=== PATIENT | female | born 1950 | race Caucasian/White ===

== ENCOUNTER → 2021-07-26 10:54 | Outpatient (BNVA) | payer MEDICARE, OTHER, SELFPAY | PROVIDERS: PCP Internal Medicine; Visit Provider Internal Medicine Rheumatology | DX: L40.9 Psoriasis, unspecified (principal); L40.50 Arthropathic psoriasis, unspecified; M17.0 Bilateral primary osteoarthritis of knee; M85.80 Other specified disorders of bone density and structure, unspecified site; Z79.899 Other long term (current) drug therapy | CPT/HCPCS: 99212 ==

== ENCOUNTER 2021-11-07 10:55 | Outpatient (REF) | payer MEDICARE, OTHER, SELFPAY ==
[2021-11-07 14:31] LABS: C Reactive Protein 0.46 mg/dL (< or = 0.50)
[2021-11-07 15:07] LABS: Erythrocyte Sedimentation Rate 11 MM/HR (0-20)
[2021-11-12 16:21] LABS: Vitamin D 25-OH, D2 <4 ng/mL; Vitamin D 25-OH, D3 47 ng/mL; Vitamin D 25-OH, Total 47 ng/mL (30-100)
== END 2021-11-07 10:56 | disposition home or self-care (01) ==
LOC: HO.10HDL 10:55
PROVIDERS: Visit Provider Internal Medicine Rheumatology
DX: M17.0 Bilateral primary osteoarthritis of knee (principal); M85.80 Other specified disorders of bone density and structure, unspecified site; L40.50 Arthropathic psoriasis, unspecified; L40.9 Psoriasis, unspecified; Z79.899 Other long term (current) drug therapy
CPT/HCPCS: 36415; 82306; 85652; 86140; 99212

== ENCOUNTER → 2022-03-13 10:31 | Outpatient (BNVA) | payer MEDICARE, OTHER, SELFPAY | PROVIDERS: PCP Internal Medicine; Visit Provider Internal Medicine Rheumatology | DX: L40.50 Arthropathic psoriasis, unspecified (principal); M17.0 Bilateral primary osteoarthritis of knee; M85.80 Other specified disorders of bone density and structure, unspecified site; Z79.899 Other long term (current) drug therapy; Z96.641 Presence of right artificial hip joint | CPT/HCPCS: 36415; 82306; 85025; 85652; 86140; 99212 ==

== ENCOUNTER 2022-03-13 12:39 | Outpatient (REF) | payer MEDICARE, OTHER, SELFPAY ==
[2022-03-13 13:42] LABS: MANUAL DIFF FLAG NO
[2022-03-13 13:59] LABS: Basophils Absolute Auto 0.1 X10*3/uL (0.0-0.2); Basophils Percent Auto 0.6 % (0-2); Eosinophils Absolute Auto 0.1 X10*3/uL (0.0-0.4); Eosinophils Percent Auto 1.5 % (0-4); Hematocrit 40.4 % (37.0-47.0); Hemoglobin 12.9 g/dl (12.0-16.0); Imm Gran Abs Auto 0.03 X10*3/uL (0.00-0.03); Imm Gran Pct Auto 0.4 % (0.0-0.4); Lymphocytes Absolute Auto 3.1 X10*3/uL (1.2-4.9); Lymphocytes Percent Auto 37.7 % (20-40); Mean Corpuscular HGB Conc 31.9 g/dl (31.0-35.0); Mean Corpuscular Hemoglobin 30.7 pg (27.0-33.0); Mean Corpuscular Volume 96.2 fL (80.0-98.0); Mean Platelet Volume 9.6 fL (9.4-12.3); Monocytes Absolute Auto 0.4 X10*3/uL (0.1-1.2); Monocytes Percent Auto 4.6 % (2-11); Neutrophils Absolute Auto 4.5 x10*3/uL (2.0-8.3); Neutrophils Percent Auto 55.2 % (45-73); Platelet Count 330 X10*3/uL (160-400); Red Cell Distribution Width 11.8 % (11.0-16.0); White Blood Count 8.2 X10*3/uL (4.8-10.8)
[2022-03-13 14:29] LABS: C Reactive Protein 0.23 mg/dL (< or = 0.50)
[2022-03-13 14:37] LABS: Erythrocyte Sedimentation Rate 12 MM/HR (0-20)
[2022-03-19 15:38] LABS: Vitamin D 25-OH, D2 <4 ng/mL; Vitamin D 25-OH, D3 49 ng/mL; Vitamin D 25-OH, Total 49 ng/mL (30-100)
== END 2022-03-13 12:40 | disposition home or self-care (01) ==
LOC: HO.10HDL 12:39
PROVIDERS: Visit Provider Internal Medicine Rheumatology
DX: Z13.89 Encounter for screening for other disorder (principal)
CPT/HCPCS: 36415; 82306; 85025; 85652; 86140

== ENCOUNTER → 2022-07-18 11:06 | Outpatient (BNVA) | payer MEDICARE, OTHER, SELFPAY | PROVIDERS: PCP Internal Medicine; Visit Provider Internal Medicine Rheumatology | DX: L40.50 Arthropathic psoriasis, unspecified (principal); L40.9 Psoriasis, unspecified; M17.0 Bilateral primary osteoarthritis of knee; Z79.899 Other long term (current) drug therapy | CPT/HCPCS: 36415; 85025; 85652; 86140; 99212 ==

== ENCOUNTER 2022-07-18 12:33 | Outpatient (REF) | payer MEDICARE, OTHER, SELFPAY ==
[2022-07-18 13:31] LABS: MANUAL DIFF FLAG NO
[2022-07-18 13:38] LABS: Basophils Absolute Auto 0.1 X10*3/uL (0.0-0.2); Basophils Percent Auto 0.7 % (0-2); Eosinophils Absolute Auto 0.1 X10*3/uL (0.0-0.4); Hematocrit 38.5 % (37.0-47.0); Hemoglobin 12.5 g/dl (12.0-16.0); Imm Gran Abs Auto 0.01 X10*3/uL (0.00-0.03); Imm Gran Pct Auto 0.1 % (0.0-0.4); Lymphocytes Absolute Auto 3.2 X10*3/uL (1.2-4.9); Mean Corpuscular HGB Conc 32.5 g/dl (31.0-35.0); Mean Corpuscular Hemoglobin 30.5 pg (27.0-33.0); Mean Corpuscular Volume 93.9 fL (80.0-98.0); Mean Platelet Volume 10.4 fL (9.4-12.3); Monocytes Absolute Auto 0.4 X10*3/uL (0.1-1.2); Monocytes Percent Auto 5.6 % (2-11); Neutrophils Absolute Auto 3.9 x10*3/uL (2.0-8.3); Neutrophils Percent Auto 50.6 % (45-73); Platelet Count 262 X10*3/uL (160-400); Red Cell Distribution Width 12.1 % (11.0-16.0); White Blood Count 7.6 X10*3/uL (4.8-10.8)
[2022-07-18 15:12] LABS: C Reactive Protein < 0.10 mg/dL (< or = 0.50)
[2022-07-18 15:28] LABS: Erythrocyte Sedimentation Rate 9 MM/HR (0-20)
== END 2022-07-18 12:34 | disposition home or self-care (01) ==
LOC: HO.10HDL 12:33
PROVIDERS: Visit Provider Internal Medicine Rheumatology
DX: Z13.89 Encounter for screening for other disorder (principal)
CPT/HCPCS: 36415; 85025; 85652; 86140

== ENCOUNTER 2022-10-28 10:32 | Outpatient (AMB) | payer MEDICARE, OTHER, SELFPAY ==
--- NOTE | 2022-10-28 10:34 | A.OFFVIS_ITS ---
Intake Vital Signs 10/28/22 10:36 Height 5 ft 4 in Weight 133 lb 2.547 oz BMI 22.9 BP 112/70 Blood Pressure Location Rt brachial Position Sitting Pulse 80 Pulse Source Pulse Oximeter Temp 97.4 F Temp Source Skin Pulse Oximetry (%) 98 Oxygen Delivery Method Room Air Intake Visit Reasons: PSA Intake Note: Here for PSA follow up. C/O- arthritic pain, Tylenol stopped due to fatty liver. Would like to resume taking Tylenol. Patient fell in September during vacation. Injured left shoulder. Did not get evaluated s/p fall. 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 Accompanied by: Self / Same As Patient Allergies prochlorperazine [From Compazine] Allergy (Severe, Verified 10/28/22 10:35) muscle spasms Medication List - Last Reconciled 10/28/22 by New Kincaid MD acetaminophen (Tylenol Extra Strength) 1,000 mg PO TID adalimumab (Humira(CF) Pen) 40 mg (0.4 mL) subcut Q2W 56 days albuterol sulfate 90 mcg/actuation (ProAir HFA) 2 puffs inhalation Q6H PRN azelastine 2 sprays intranasal BID cholecalciferol (vitamin D3) 50 mcg PO DAILY diclofenac sodium 1% (Voltaren Arthritis Pain) 2 grams topical QID PRN erythromycin 0 mg ophthalmic (eye) levothyroxine 75 mcg PO DAILY ondansetron 4 mg PO Q8H PRN simvastatin 10 mg PO BEDTIME spironolactone 25 mg PO DAILY HPI HPI Comments History of Present Illness Details Patient returns for evaluation of her psoriatic arthritis, psoriasis and osteoarthritis. She remains on Humira 40 mg weekly. She had been taking acetaminophen up to 1 g once or twice a day but stopped it earlier this year because she was told she had fatty liver. This was determined on the basis of an ultrasound study. She feels she really misses the acetaminophen. She sometimes takes ibuprofen instead. She does not have any rash of psoriasis recently. Mostly she has the pain in the knees and the lower back. These areas of OA have bothered her and were previously helped with acetaminophen. There is also some stiffness and pain in a few of the PIP joints. She was visiting [employer] in September and tripped over [employer]. She landed on the left chest area. This caused pain that lasted for about a month. She was evaluated down there with x-rays and no fracture was seen. It did not seem to impair much her already impaired left shoulder range of motion. 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 Osteoarthritis of knees, bilateral Osteopenia Psoriasis Psoriatic arthritis 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, right Surgical History H/O right knee surgery History of total right hip arthroplasty Social History Household Members: Spouse Housing: Condominium Are you a primary healthcare analyst to a significant other at home: No Do you presently have visiting nurse or other home services: No 75 years or older and lives alone: No Alcohol intake: never Patient Tobacco Use Status: Never used Tobacco service: No Current occupational status: retired Review of Systems Const Details: Negative for appetite change, weight change, fever, chills, malaise and fatigue Eyes Details: Negative for vision change, dry eyes,headaches and dizziness ENT Details: Negative for hearing change, tinnitus, oral ulcer, nose bleeds and oral dryness. Card Details: Negative chest pain, edema and syncope Resp Details: Negative for SOB, cough and wheezing GI Details: Still with occasional right upper quadrant pains. She now has a different GI person to see. Negative indigestion/heartburn, nausea, bowel changes, diarrhea, constipation and bloody stool. Details: Negative for dysuria, hematuria, nocturia, decreased force/flow and genital discharge Skin/Breast Details: Negative for itching, rash, hives, Raynaud's symptoms, sun sensitivity, and skin cancer Psych Details: Her has also been sick with COVID requiring hospitalization. This is cross and increased stress and anxiety about his condition as well. Fortunately their son has been around and he has been helpful. Fly/Lymph Details: Negative for excessive bruising or bleeding. Physical Exam Vital Signs: Last Vital Signs Temp 97.4 F 10/28/22 10:36 Pulse 80 10/28/22 10:36 BP 112/70 10/28/22 10:36 Pulse Ox 98 10/28/22 10:36 Oxygen Delivery Method Room Air 10/28/22 10:36 BMI result Body Mass Index 22.9 APPEARANCE: Patient in no acute distress EYES no redness, pupils equal and reactive to light, eyelids normal NECK:? No thyromegaly.? There are few nontender lymph nodes in the posterior cervical chains bilaterally.? None of these are tender.? There are no other masses and the the trachea is midline. HEART:? Regulrar rhythm, S1-S2 heard, no murmurs, rubs or gallops. LUNG:? Clear to percussion and auscultation ABD:? Normal bowel sounds, no organomegaly, masses or tenderness. EXTREMITIES:? No edema, no calf tenderness, normal peripheral pulses. NEURO:? Oriented and alert x3.? No focal weakness.? Reflexes symmetric.? Gait normal. SKIN:? No inflammatory or neoplastic lesions.? Normal color and turgor JOINT EXAM: Cervical Spine: Full range of motion with mild discomfort, no tenderness. Thoracic Spine:.? No scoliosis.? No tenderness on palpation. Lumbar Spine:.? Alignment normal.? Full range of motion without pain, no tenderness. Chest Wall:.? Some slight tenderness in the left infraclavicular region but no areas of redness, bruising or, swelling. Hands:.? Left:? Normal pain-free range of motion.? Slight thickening of the thumb MCP joint with minimal tenderness.? No other areas of tenderness or swelling.? Right:? Normal pain-free range of motion without tenderness, swelling, increased warmth or erythema?of the MCP joints.? There is some slight thickening at the 4th PIP which is not tender.? Mild nontender bony enlargement at the 2nd, 3rd and 5th DIP joints.? No thenar atrophy or sensory loss. Wrists:? Normal pain-free range of motion without tenderness, swelling, increased warmth or erythema. Elbows: Normal pain-free range of motion without tenderness, swelling, increased warmth or erythema. Shoulders:.??Left: Mild discomfort with extremes of normal range of motion with some minimal anterior tenderness but no adenopathy or weakness.? Right joint Full range of motion without pain. No tenderness, weakness, adenopathy, swelling, increased warmth or erythema. Hips:? Right:? Slight discomfort felt in the lumbar region with extremes of normal external rotation but no groin pain with motion.? No adenopathy.? Left:? Normal pain-free range.? The Hip bursa:? Mild bilateral trochanteric tenderness. Knees:??Right:? Evidence of a surgical scar in the lateral region.? This seems to be well healed.? There is slight medial tenderness but no effusion.? There is mild patellofemoral crepitus.? Left:? Normal pain-free range of motion with mild patellofemoral crepitus and some slight medial tenderness but no effusion, swelling, increased warmth or erythema.? Ankles:? Normal pain-free range of motion without tenderness, swelling, increased warmth or erythema. Feet:? Right:? Mild hallux valgus deformity and bony enlargement at the 1st MTP but no areas of tenderness.? Left:? Slight 1st MTP bony enlargement without tenderness.? There are some hammertoes notable on the 3rd and 4th toes but they are not tender.? No tenderness or swelling over the MTP joints or the toes. Tender points:? No tenderness to digital palpation at the occiput, trapezius, second rib, lateral epicondyle, knees, greater trochanter and gluteal area bilaterally. 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 Rx: methotrexate - partial response, nausea. Enbrel added Mar 2003 with good response Humira in place of Enbrel because of fading response 12/2010 Methotrexate held at time of hip fracture 03/31 - not restarted as it was not needed Winter 2018 - Humira hled due to flu 10/02: Humira held due to thrush Humira held for keft knee surgery 12/2020(fracture) Restarted Humira 2020 Code(s): L40.50 - Arthropathic psoriasis, unspecified Plan Psoriatic arthritis with really no signs of active psoriasis. Similarly there is not much evidence for active psoriatic arthritis presently. Much of her symptoms in her hands now I think are due to osteoarthritis. She is receiving occasional gel and corticosteroid injections in the knees for OA. It is unclear to me why she keeps falling. We discussed possible physical therapy referral for some balance exercises but she declines for now. Again I told her I thought she could take up to 2 g a day of acetaminophen if needed for pain. She will discuss that further with her primary care doctor. Follow-up in 3 or 4 months is recommended. Coding Level of Care Code Est Pt Level 3 (51309) Diagnoses FDC current use of immunosuppressive drug Z79.899 Psoriasis L40.9 Osteoarthritis of knees, bilateral M17.0 Psoriatic arthritis L40.50
[2022-10-28 10:36] VITALS: BP 112/70; PULSE 80; TEMP 36.3; O2SAT 98; BMI 22.9
== END 2022-10-28 11:28 | disposition home or self-care (01) ==
PROVIDERS: PCP Internal Medicine; Visit Provider Internal Medicine Rheumatology
DX: Z79.899 Other long term (current) drug therapy (principal); L40.9 Psoriasis, unspecified; M17.0 Bilateral primary osteoarthritis of knee; L40.50 Arthropathic psoriasis, unspecified
CPT/HCPCS: 99213

== ENCOUNTER → 2022-10-28 10:32 | Outpatient (BNVA) | payer MEDICARE, OTHER, SELFPAY | PROVIDERS: Visit Provider Internal Medicine Rheumatology | DX: L40.50 Arthropathic psoriasis, unspecified (principal); M17.0 Bilateral primary osteoarthritis of knee; Z79.60 Long term (current) use of unspecified immunomodulators and immunosuppressants | CPT/HCPCS: 99212 ==

== ENCOUNTER 2023-03-11 10:18 | Outpatient (AMB) | payer MEDICARE, OTHER, SELFPAY ==
--- NOTE | 2023-03-11 10:20 | A.OFFVIS_ITS ---
Intake Vital Signs 03/11/23 10:26 Height 5 ft 4 in Weight 135 lb 12.876 oz BMI 23.3 BP 136/72 Blood Pressure Location Lt brachial Position Sitting Pulse 78 Pulse Source Pulse Oximeter Temp 97 F Temp Source Skin Pulse Oximetry (%) 99 Oxygen Delivery Method Room Air Intake Visit Reasons: psa Intake Note: Patient last seen 10/28/22, presents today for follow up and test results. c/o low back pain, arthritis pain. Reports having a fatty liver and therefore has not been using Tylenol, pain has increased. 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 Accompanied by: Self / Same As Patient Allergies prochlorperazine [From Compazine] Allergy (Severe, Verified 03/11/23 10:22) muscle spasms Medication List - Last Reconciled 03/11/23 by New Kincaid MD acetaminophen (Tylenol Extra Strength) 1,000 mg PO TID adalimumab (Humira(CF) Pen) 40 mg (0.4 mL) subcut Q2W 56 days albuterol sulfate 90 mcg/actuation (ProAir HFA) 2 puffs inhalation Q6H PRN azelastine 2 sprays intranasal BID cholecalciferol (vitamin D3) 50 mcg PO DAILY diclofenac sodium 1% (Voltaren Arthritis Pain) 2 grams topical QID PRN levothyroxine 75 mcg PO DAILY ondansetron HCl 8 mg PO BID simvastatin 10 mg PO BEDTIME spironolactone 25 mg PO DAILY HPI HPI Comments History of Present Illness Details The patient returns for evaluation of her psoriatic arthritis, osteoarthritis and psoriasis. She remains on Humira 40 mg every 2 weeks. She has osteoarthritis in the knees, worse on the left. She recently received bilateral gel injections in the knees and that has been somewhat helpful. None the less she is taking acetaminophen 500 mg a few times a day. I told her she could take more that but she was worried about the diagnosis of fatty liver so limits the acetaminophen. She does however also on occasions supplement this with OTC ibuprofen. The knee pains are worse towards the end of the day. There also are accompanied by lower back pain. The back pain has been present off and on but apparently worse in the last few months. No recent injury has been documented. She is thinking about calling [facility] to have the back pain further assessed. She does take occasional cyclobenzaprine for the back pain and uses some topical diclofenac gel at times on hands. She tells me she has plans to stop working in the spring. 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 The more time she spends walking around the more knee and back pain she gets. 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 Hyperlipidemia Hypertension Hypothyroid Psoriasis Psoriatic arthritis Surgical History H/O right knee surgery History of total right hip arthroplasty Social History Household Members: Spouse [facility] Are you a primary child adolescent care to a significant other at home: No Do you presently have visiting nurse or other home services: No Alcohol intake: never Patient Tobacco Use Status: Never used Tobacco service: No Current occupational status: retired Review of Systems Const Details: Negative for appetite change, weight change, fever, chills, malaise and fatigue Eyes Details: Negative for vision change, dry eyes,headaches and dizziness Card Details: Negative chest pain, edema and syncope Resp Details: Negative for SOB, cough and wheezing GI Details: Negative indigestion/heartburn, nausea, abdominal pain, bowel changes, diarrhea, constipation and bloody stool. Skin/Breast Details: Negative for itching, rash, hives, Raynaud's symptoms, sun sensitivity, and skin cancer Fly/Lymph Details: Negative for excessive bruising or bleeding. Physical Exam Vital Signs: Last Vital Signs Temp 97 F 03/11/23 10:26 Pulse 78 03/11/23 10:26 BP 136/72 03/11/23 10:26 Pulse Ox 99 03/11/23 10:26 Oxygen Delivery Method Room Air 03/11/23 10:26 BMI result Body Mass Index 23.3 APPEARANCE: Patient in no acute distress EYES no redness, pupils equal and reactive to light, eyelids normal SKIN:? No inflammatory or neoplastic lesions.? Normal color and turgor JOINT EXAM: Cervical Spine: Full range of motion with mild discomfort, no tenderness. Thoracic Spine:.? No scoliosis.? No tenderness on palpation. Lumbar Spine:.? Alignment normal.? Mild to moderate pain with flexion at 45 degrees. There is some paraspinal muscle tenderness. Chest Wall:.? No tenderness, redness, bruising or, swelling. Hands:.? Left:? Normal pain-free range of motion.? Slight thickening of the thumb MCP joint and the CMC joint of the thumb with minimal tenderness.? No o ther areas of tenderness or swelling.? Right:? Normal pain-free range of motion without tenderness, swelling, increased warmth or erythema?of the MCP joints.? Mild tenderness at the base of the thumb without swelling. There is some slight thickening at the 4th PIP which is not tender.? Mild nontender bony enlargement at the 2nd, 3rd and 5th DIP joints.? No thenar atrophy or sensory loss. Wrists:? Normal pain-free range of motion without tenderness, swelling, increased warmth or erythema. Elbows: Normal pain-free range of motion without tenderness, swelling, increased warmth or erythema. Shoulders:.??Left: Mild discomfort with extremes of normal range of motion with some minimal anterior tenderness but no adenopathy or weakness.? Right joint Full range of motion without pain. No tenderness, weakness, adenopathy, swelling, increased warmth or erythema. Hips:? Right:? Slight discomfort felt in the lumbar region with extremes of normal external rotation but no groin pain with motion.? No adenopathy.? Left:? Normal pain-free range.? Hip bursa:? Mild bilateral trochanteric tenderness. Knees:??Right:? Evidence of a surgical scar in the lateral region.? This seems to be well healed.? There is slight medial tenderness but no effusion.? There is mild patellofemoral crepitus.? Left:? Normal pain-free range of motion with mild patellofemoral crepitus and some slight medial tenderness but no effusion, swelling, increased warmth or erythema.? Ankles:? Normal pain-free range of motion without tenderness, swelling, increased warmth or erythema. Feet:? Right:? Mild hallux valgus deformity and bony enlargement at the 1st MTP but no areas of tenderness.? Left:? Slight 1st MTP bony enlargement without tenderness.? There are some hammertoes notable on the 3rd and 4th toes but they are not tender.? No tenderness or swelling over the MTP joints or the toes. Tender points:? No tenderness to digital palpation at the occiput, trapezius, second rib, lateral epicondyle, knees, greater trochanter and gluteal area bilaterally. Assessment & Plan Assessment & Plan (1) Psoriatic arthritis: Comment: Onset . Rx: methotrexate - partial response, nausea. Enbrel added Mar 2003 with good response Humira in place of Enbrel because of fading response 12/2010 Methotrexate held at time of hip fracture 03/31 - not restarted as it was not needed Winter 2018 - Humira hled due to flu 10/02: Humira held due to thrush Humira held for keft knee surgery 12/2020(fracture) Restarted Humira 2020 Code(s): L40.50 - Arthropathic psoriasis, unspecified Plan Psoriatic arthritis with no real signs of peripheral inflammation in the joints. There are some mild changes of osteoarthritis in the hands and more significant findings of OA in the knees. She does not seem to have any signs of psoriasis presently. In the past, about 10 years ago, she had some back films showing some lumbar degenerative disc disease and osteoarthritis so I suspect the back pain is an exacerbation of that problem. She will follow through with her plans to be evaluated at [facility]. We will check inflammatory markers today. Chemistries and CBC earlier this month at [place] were unremarkable. A follow-up in about 5 months is recommended. Orders: Orders Erythrocyte Sedimentation Rate Today L40.50 - Arthropathic psoriasis, unspecified C Reactive Protein Today L40.50 - Arthropathic psoriasis, unspecified Coding Level of Care Code Est Pt Level 3 (62040) Diagnoses Psoriatic arthritis L40.50
[2023-03-11 10:26] VITALS: BP 136/72; PULSE 78; TEMP 36.1; O2SAT 99; BMI 23.3
== END 2023-03-11 11:26 | disposition home or self-care (01) ==
PROVIDERS: PCP Internal Medicine; Visit Provider Internal Medicine Rheumatology
DX: L40.50 Arthropathic psoriasis, unspecified (principal)
CPT/HCPCS: 99213

== ENCOUNTER → 2023-03-11 10:18 | Outpatient (BNVA) | payer MEDICARE, OTHER, SELFPAY | PROVIDERS: PCP Internal Medicine; Visit Provider Internal Medicine Rheumatology | DX: L40.50 Arthropathic psoriasis, unspecified (principal) | CPT/HCPCS: 36415; 85652; 86140; 99212 ==

== ENCOUNTER 2023-03-11 12:11 | Outpatient (REF) | payer MEDICARE, OTHER, SELFPAY ==
[2023-03-11 13:32] LABS: C Reactive Protein 0.15 mg/dL (< or = 0.50)
[2023-03-11 13:52] LABS: Erythrocyte Sedimentation Rate 6 MM/HR (0-20)
== END 2023-03-11 12:12 | disposition home or self-care (01) ==
LOC: HO.10HDL 12:11
PROVIDERS: Visit Provider Internal Medicine Rheumatology
DX: Z13.89 Encounter for screening for other disorder (principal)
CPT/HCPCS: 36415; 85652; 86140

== ENCOUNTER 2023-08-15 09:46 | Outpatient (AMB) | payer MEDICARE, OTHER, SELFPAY ==
--- NOTE | 2023-08-15 09:52 | A.OFFVIS_ITS ---
Vital Signs 08/15/23 09:58 Height 5 ft 4 in Weight 139 lb 1.787 oz BMI 23.9 BP 144/70 H Blood Pressure Location Rt brachial Position Sitting Pulse 84 Pulse Source Pulse Oximeter Pulse Oximetry (%) 97 Oxygen Delivery Method Room Air Intake Visit Reasons: PsA Intake Note: Patient last seen 03/11/[address] Kincaid, presents today for follow up and test results. 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 Lua 73yoF returns for evaluation of her psoriatic arthritis, os teoarthritis and psoriasis. She remains on Humira 40 mg every 2 weeks. She has osteoarthritis in the knees, worse on the left. She received bilateral gel injections in the knees and that has been helpful and has upcoming appt in october 16 2023. She is taking acetaminophen 500 mg a few times a day. She on occasions supplement this with OTC ibuprofen. The knee pains are worse towards the end of the day. She also has accompanied lower back pain. The back pain has been present off and on but apparently worse in the last few months. No recent injury has been documented. She has not taken any cyclobenzaprine for the back pain cause it makes her drowsy. Uses some topical diclofenac gel at times on hands. 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 The more time she spends walking around the more knee and back pain she gets. 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 --12 or 13 years, fell broke left shoulder --morning stiffness lasts about 20 minutes. 03/11/2023 Dr. Kincaid: The patient returns for evaluation of her psoriatic arthritis, osteoarthritis and psoriasis. She remains on Humira 40 mg every 2 weeks. She has osteoarthritis in the knees, worse on the left. She recently received bilateral gel injections in the knees and that has been somewhat helpful. None the less she is taking acetaminophen 500 mg a few times a day. I told her she could take more that but she was worried about the diagnosis of fatty liver so limits the acetaminophen. She does however also on occasions supplement this with OTC ibuprofen. The knee pains are worse towards the end of the day. There also are accompanied by lower back pain. The back pain has been present off and on but apparently worse in the last few months. No recent injury has been documented. She is thinking about calling [facility] to have the back pain further assessed. She does take occasional cyclobenzaprine for the back pain and uses some topical diclofenac gel at times on hands. She tells me she has plans to stop working in the spring. 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 The more time she spends walking around the more knee and back pain she gets. [facility] Medical History (Updated 08/15/23 @ 10:41 by HEBER Kolb) DDD (degenerative disc disease), lumbosacral Osteopenia Osteoarthritis of knees, bilateral History of humerus fracture 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, right intermediate current use of immunosuppressive drug Hyperlipidemia Hypertension Hypothyroid Psoriasis Psoriatic arthritis Surgical History H/O right knee surgery History of total right hip arthroplasty Social History Household Members: Spouse Housing: [facility] Are you a primary healthcare educator to a significant other at home: No Do you presently have visiting nurse or other home services: No 75 years or older and lives alone: No Alcohol intake: never Patient Tobacco Use Status: Never used Tobacco service: No Current occupational status: retired Review of Systems Const All systems reviewed & are unremarkable except as noted in HPI and below Physical Exam Vital Signs: Last Vital Signs Pulse 84 08/15/23 09:58 BP 144/70 H 08/15/23 09:58 Pulse Ox 97 08/15/23 09:58 Oxygen Delivery Method Room Air 08/15/23 09:58 BMI result Body Mass Index 23.9 APPEARANCE: Patient in no acute distress EYES no redness, pupils equal and reactive to light, eyelids normal SKIN:? No inflammatory or neoplastic lesions.? Normal color and turgor JOINT EXAM: Cervical Spine: Full range of motion with mild discomfort, no tenderness. Thoracic Spine:.? No scoliosis.? No tenderness on palpation. Lumbar Spine:.? Alignment normal.? Mild to moderate pain with flexion at 45 degrees. There is some paraspinal muscle tenderness. Chest Wall:.? No tenderness, redness, bruising or, swelling. Hands:.? Left:? Normal pain-free range of motion.? Slight thickening of the thumb MCP joint and the CMC joint of the thumb with minimal tenderness.? No other areas of tenderness or swelling.? Right:? Normal pain-free range of motion without tenderness, swelling, increased warmth or erythema?of the MCP joints.? Mild tenderness at the base of the thumb without swelling. There is some slight thickening at the 4th PIP which is not tender.? Mild nontender bony enlargement at the 2nd, 3rd and 5th DIP joints.? No thenar atrophy or sensory loss. Wrists:? Normal pain-free range of motion without tenderness, swelling, increased warmth or erythema. Elbows: Normal pain-free range of motion without tenderness, swelling, increased warmth or erythema. Shoulders:.??Left: Mild discomfort with extremes of normal range of motion with some minimal anterior tenderness but no adenopathy or weakness.? Right joint Full range of motion without pain. No tenderness, weakness, adenopathy, swelling, increased warmth or erythema. Hips:? Right:? Slight discomfort felt in the lumbar region with extremes of normal external rotation but no groin pain with motion.? No adenopathy.? Left:? Normal pain-free range.? Hip bursa:? Mild bilateral trochanteric tenderness. Knees:??Right:? Evidence of a surgical scar in the lateral region.? This seems to be well healed.? There is slight medial tenderness but no effusion.? There is mild patellofemoral crepitus.? Left:? Normal pain-free range of motion with mild patellofemoral crepitus and some slight medial tenderness but no effusion, swelling, increased warmth or erythema.? Ankles:? Normal pain-free range of motion without tenderness, swelling, increased warmth or erythema. Feet:? Right:? Mild hallux valgus deformity and bony enlargement at the 1st MTP but no areas of tenderness.? Left:? Slight 1st MTP bony enlargement without tenderness.? There are some hammertoes notable on the 3rd and 4th toes but they are not tender.? No tenderness or swelling over the MTP joints or the toes. Tender points:? No tenderness to digital palpation at the occiput, trapezius, second rib, lateral epicondyle, knees, greater trochanter and gluteal area b ilaterally. Assessment & Plan Assessment & Plan (1) Psoriatic arthritis: Comment: Onset . Rx: methotrexate - partial response, nausea. 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 She is doing well on Humira 40 mg QOW. No psoriasis seen on PE. inflammatory markers are within normal range. #DDD Lumbar/OA multiple joints - hands, Knees: There are mild changes of osteoarthritis in the hands and more significant findings of OA in the knees. She has upcoming PT for back and is considering back injections. Continue to follow with [facility] for knee injections. Takes Tylenol and uses topical dicloflenac gel. 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 The patient affirms that she knows to hold the medication in the event fever, infection, non-healing wound or surgery. She is concerned about Taking too much Tylenol due to history fatty liver. We will obtain updated CMP and CMP. 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
[2023-08-15 09:58] VITALS: BP 144/70; PULSE 84; O2SAT 97; BMI 23.9
== END 2023-08-15 10:48 | disposition home or self-care (01) ==
LOC: HO.RHE 09:46
PROVIDERS: PCP Internal Medicine; Visit Provider Nurse Practitioner Family
DX: L40.50 Arthropathic psoriasis, unspecified (principal); L40.9 Psoriasis, unspecified; Z79.899 Other long term (current) drug therapy; M51.37 Other intervertebral disc degeneration, lumbosacral region; M17.0 Bilateral primary osteoarthritis of knee
CPT/HCPCS: 99214; G2211

== ENCOUNTER → 2023-08-15 09:46 | Outpatient (BNVA) | payer MEDICARE, OTHER, SELFPAY | PROVIDERS: PCP Internal Medicine; Visit Provider Nurse Practitioner Family | DX: L40.50 Arthropathic psoriasis, unspecified (principal); L40.9 Psoriasis, unspecified; M51.37 Other intervertebral disc degeneration, lumbosacral region; M17.0 Bilateral primary osteoarthritis of knee; Z79.899 Other long term (current) drug therapy | CPT/HCPCS: 36415; 80053; 85025; 85652; 86140; 99212 ==

== ENCOUNTER 2023-08-15 10:58 | Outpatient (REF) | payer MEDICARE, OTHER, SELFPAY ==
[2023-08-15 13:35] LABS: MANUAL DIFF FLAG NO
[2023-08-15 13:54] LABS: Basophils Percent Auto 0.6 % (0-2); Eosinophils Absolute Auto 0.1 X10*3/uL (0.0-0.4); Hematocrit 40.2 % (37.0-47.0); Hemoglobin 13.1 g/dl (12.0-16.0); Imm Gran Abs Auto 0.01 X10*3/uL (0.00-0.03); Imm Gran Pct Auto 0.1 % (0.0-0.4); Lymphocytes Absolute Auto 2.7 X10*3/uL (1.2-4.9); Lymphocytes Percent Auto 38.4 % (20-40); Mean Corpuscular HGB Conc 32.6 g/dl (31.0-35.0); Mean Corpuscular Hemoglobin 30.8 pg (27.0-33.0); Mean Corpuscular Volume 94.6 fL (80.0-98.0); Mean Platelet Volume 9.9 fL (9.4-12.3); Monocytes Absolute Auto 0.6 X10*3/uL (0.1-1.2); Monocytes Percent Auto 8.1 % (2-11); Neutrophils Absolute Auto 3.6 x10*3/uL (2.0-8.3); Neutrophils Percent Auto 50.8 % (45-73); Platelet Count 299 X10*3/uL (160-400); Red Blood Count 4.25 X10*6/uL (4.20-5.50); Red Cell Distribution Width 11.9 % (11.0-16.0); White Blood Count 7.1 X10*3/uL (4.8-10.8)
[2023-08-15 13:59] LABS: Alanine Aminotransferase 18 U/L (0-31); Albumin Level 4.3 g/dL (3.5-5.0); Alkaline Phosphatase 80 U/L (39-117); Anion Gap 11 (12-20); Aspartate Amino Transferase 20 U/L (5-31); Blood Urea Nitrogen 15 mg/dL (9-16); C Reactive Protein 0.12 mg/dL (< or = 0.50); Calcium 10.8 mg/dL (8.4-10.2); Carbon Dioxide 29 mmol/L (22-29); Chloride 105 mmol/L (96-108); Estimated Glomerular Filt Rate > 60; Glucose Random 88 mg/dL (60-115); Potassium 3.7 mmol/L (3.3-5.1); Sodium 141 mmol/L (135-145); Total Protein 7.3 g/dL (6.5-8.0)
[2023-08-15 14:39] LABS: Erythrocyte Sedimentation Rate 8 MM/HR (0-20)
== END 2023-08-15 10:59 | disposition home or self-care (01) ==
LOC: HO.10HDL 10:58
PROVIDERS: Visit Provider Nurse Practitioner Family
DX: Z13.89 Encounter for screening for other disorder (principal)
CPT/HCPCS: 36415; 80053; 85025; 85652; 86140

== ENCOUNTER 2024-01-20 08:39 | Outpatient (AMB) | payer MEDICARE, OTHER, SELFPAY ==
--- NOTE | 2024-01-20 08:40 | MHC.OFFVIS ---
Vital Signs 01/20/24 08:45 Height 5 ft 6 in Weight 137 lb 12.623 oz BMI 22.2 BP 120/70 Blood Pressure Location Lt brachial Position Sitting Pulse 88 Pulse Source Pulse Oximeter Pulse Oximetry (%) 98 Oxygen Delivery Method Room Air Intake Visit Reasons: PSA/CM Intake Note: Patient presents for PsA. Allergies prochlorperazine [From Compazine] Allergy (Severe, Verified 01/20/24 08:45) muscle spasms Medication List - Last Reconciled 01/20/24 by Surya Castellanos MD acetaminophen (Tylenol Extra Strength) 1,000 mg PO TID PRN adalimumab (Humira(CF) Pen) 40 mg (0.4 mL) subcut Q2W 56 days albuterol sulfate 90 mcg/actuation (ProAir HFA) 2 puffs inhalation Q6H PRN azelastine 2 sprays intranasal BID calcium carbonate (Tums) 200 mg PO DAILY PRN celecoxib (Celebrex) 200 mg PO DAILY cholecalciferol (vitamin D3) 50 mcg PO DAILY diclofenac sodium 1% (Voltaren Arthritis Pain) 2 grams topical QID PRN levothyroxine 75 mcg PO DAILY ondansetron HCl 4 mg PO Q6H PRN simvastatin 10 mg PO BEDTIME spironolactone 25 mg PO DAILY HPI Comments Details: This is a 73-year-old female with psoriasis and psoriatic arthritis who presents for follow-up. She remains on Humira 40 mg every other week. She states that she has diffuse pain everywhere including her neck, low back, shoulder, knees. A few months ago she was having right upper quadrant pain, liver ultrasound was done which showed fatty liver. She was evaluated by GI and advised to stop Tylenol. In the past patient was taking Tylenol 6 tabs a day. She has been doing that for decades. [facility] Medical History (Updated 01/20/24 @ 09:26 by Surya Castellanos MD) DDD (degenerative disc disease), lumbosacral Osteopenia Osteoarthritis of knees, bilateral History of humerus fracture 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, right correction current use of immunosuppressive drug Hyperlipidemia Hypertension Hypothyroid Psoriasis Psoriatic arthritis Surgical History H/O right knee surgery History of total right hip arthroplasty Social History Household Members: Spouse Housing: Condominium Are you a primary hospice patient care secretary to a significant other at home: No Do you presently have visiting nurse or other home services: No 75 years or older and lives alone: No Alcohol intake: never Patient Tobacco Use Status: Never used Tobacco service: No Current occupational status: retired Physical Exam Vital Signs: Last Vital Signs Pulse 88 01/20/24 08:45 BP 120/70 01/20/24 08:45 Pulse Ox 98 01/20/24 08:45 Oxygen Delivery Method Room Air 01/20/24 08:45 BMI result Body Mass Index 22.2 Results Reviewed Results Reviewed: Component Ref Range & Units 4 mo ago 11 mo ago [id number] 106 - 279 mg/dL 166 [email or web address]?[email or web address] HAPTOGLOBIN 43 - 212 mg/dL 93 [email or web address]?LINKID&449 APOLIPOPROTEIN A1 101 - 198 mg/dL 228?Abnormal? 242?Abnormal?[email or web address]?LINKID&450 TOTAL BILIRUBIN 0.2 - 1.2 mg/dL 1.0 [email or web address]?LINKID&451 GAMMA GLUTAMYL TRANSPEPTIDASE 3 - 65 U/L 12 [email or web address]?LINKID&452 ALANINE AMINOTRANSFERASE (ALT) 6 - 29 U/L 17 [email or web address]?LINKID&453 LIVER FIBROSIS SCORE 0.13 [email or web address]?LINKID&454 LIVER FIBROSIS STAGE F0 [email or web address]?LINKID&455 LIVER FIBROSIS INTERPRETATION SEE NOTE SEE [email or web address]?[email or web address]?CM Comment:?no fibrosis Fibro Test Score (f) ?Metavir Score ? f>=0 and f<=0.21 : F0 (no fibrosis) f>0.21 and f<=0.27 : F0-F1 (no fibrosis) f>0.27 and f<=0.31 : F1 (minimal fibrosis) f>0.31 and f<=0.48 : F1-F2 (minimal fibrosis) f>0.48 and f<=0.58 : F2 (moderate fibrosis) f>0.58 and f<=0.72 : F3 (advanced fibrosis) f>0.72 and f<=0.74 : F3-F4 (advanced fibrosis) f>0.74 and f<=1.00 : F4 (severe fibrosis) NECROINFLAMMATORY ACT SCORE 0.05 [email or web address]?LINKID&457 NECROINFLAMMATORY ACT GRADE A0 [email or web address]?LINKID&458 NECROINFLAMMATORY INTERPRET SEE NOTE SEE [email or web address]?[email or web address]?CM Comment:?no activity ActiTest Score (a) ? ?Metavir Score ? a>=0 and a<=0.17 : A0 (no activity) a>0.17 and a<=0.29 : A0-A1 (no activity) a>0.29 and a<=0.36 : A1 (minimal activity) a>0.36 and a<=0.52 : A1-A2 (minimal activity) a>0.52 and a<=0.60 : A2 (significant activity) a>0.60 and a<=0.62 : A2-A3 (significant activity) a>0.62 and a<=1.00 : A3 (severe activity) US SOFT TISSUE ABDOMEN/BACK, LIMITED ABD Exam Date: 09/11/2023 8:00 AM Ordering Diagnosis: Fatty liver Exam: Right upper quadrant ultrasound/US Limited History: fatty liver Technique: Loving scale and color Doppler imaging was utilized. Comparison: Ultrasound right upper quadrant from 02/14/2023 FINDINGS: Liver: increasedin echotexture. The liver measures 12.7 cm.There is no evidence of intrahepatic biliary ductal dilation. There is no ascites. Gallbladder: no gallbladder stone, wall thickening or pericholecystic fluid. An echogenic polyp measures 0.4 x 0.5 x 0.4 cm. Common bile duct: measures 0.6 cm. Right kidney: measures 9.3 cm and is sonographically unremarkable Pancreas: The visualized pancreatic parenchyma is unremarkable. The pancreatic head and tail were not visualized due to overlying bowel gas. IMPRESSION IMPRESSION: 1. Hepatic steatosis 2. Gallbladder polyp measures 0.5 cm. Follow-up ultrasound in 6 months Assessment & Plan Assessment & Plan (1) Psoriatic arthritis: Comment: Onset . Rx: methotrexate - partial response, nausea. Enbrel added Mar 2003 with good response Humira in place of Enbrel because of fading response 12/2010 Methotrexate held at time of hip fracture 03/31 - not restarted as it was not needed Winter 2018 - Humira hled due to flu 10/02: Humira held due to thrush Humira held for keft knee surgery 12/2020(fracture) Restarted Humira 2020 Code(s): L40.50 - Arthropathic psoriasis, unspecified Category: Medical Plan: This is a 73-year-old female with psoriasis and psoriatic arthritis who presents for follow-up. She remains on Humira 40 mg every other week. Psoriasis and psoriatic arthritis are well controlled on Humira. 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 Patient fully aware. Advised patient to seek medical care BRADLY if patient has an infection and advised patient to stop the medication until the infection is resolved. (4) Generalized osteoarthritis: Code(s): M15.9 - Polyosteoarthritis, unspecified Category: Medical Plan: Patient has osteoarthritis affecting multiple joints including her neck, L-spine, knees, shoulders. She follows up document specialist as well as Orthopedics to manage above symptoms. She has received injections in her lower back. She will be going back to her Orthopedist to evaluate her knees. With regards to medical treatment. I think given that patient has normal liver enzymes with low-fiber sure score, normal creatinine using Tylenol with Aleve once daily sparingly as needed would not be unreasonable. 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
[2024-01-20 08:45] VITALS: BP 120/70; PULSE 88; O2SAT 98; BMI 22.2
== END 2024-01-20 09:19 | disposition home or self-care (01) ==
LOC: HO.RHE 08:40
PROVIDERS: PCP Internal Medicine; Visit Provider Student in an Organized Health Care Education/Training Program
DX: L40.50 Arthropathic psoriasis, unspecified (principal); L40.9 Psoriasis, unspecified; Z79.899 Other long term (current) drug therapy; M15.9 Polyosteoarthritis, unspecified
CPT/HCPCS: 99214; G2211

== ENCOUNTER → 2024-01-20 08:39 | Outpatient (BNVA) | payer MEDICARE, OTHER, SELFPAY | PROVIDERS: PCP Internal Medicine; Visit Provider Student in an Organized Health Care Education/Training Program | DX: L40.50 Arthropathic psoriasis, unspecified (principal); L40.9 Psoriasis, unspecified; M15.9 Polyosteoarthritis, unspecified; Z79.620 Long term (current) use of immunosuppressive biologic; Z79.899 Other long term (current) drug therapy | CPT/HCPCS: 99212 ==

== ENCOUNTER 2024-05-14 15:37 | Outpatient (REF) | payer MEDICARE, OTHER, SELFPAY ==
[2024-05-14 16:13] LABS: MANUAL DIFF FLAG NO
[2024-05-14 16:26] LABS: Basophils Absolute Auto 0.1 X10*3/uL (0.0-0.2); Basophils Percent Auto 0.8 % (0-2); Eosinophils Absolute Auto 0.2 X10*3/uL (0.0-0.4); Eosinophils Percent Auto 2.2 % (0-4); Hematocrit 36.4 % (37.0-47.0); Hemoglobin 12.3 g/dl (12.0-16.0); Imm Gran Abs Auto 0.02 X10*3/uL (0.00-0.03); Imm Gran Pct Auto 0.3 % (0.0-0.4); Mean Corpuscular HGB Conc 33.8 g/dl (31.0-35.0); Mean Corpuscular Hemoglobin 31.1 pg (27.0-33.0); Mean Corpuscular Volume 92.2 fL (80.0-98.0); Monocytes Absolute Auto 0.5 X10*3/uL (0.1-1.2); Monocytes Percent Auto 6.3 % (2-11); Neutrophils Absolute Auto 4.1 x10*3/uL (2.0-8.3); Neutrophils Percent Auto 52.4 % (45-73); Platelet Count 285 X10*3/uL (160-400); Red Blood Count 3.95 X10*6/uL (4.20-5.50); Red Cell Distribution Width 12.4 % (11.0-16.0); White Blood Count 7.8 X10*3/uL (4.8-10.8)
[2024-05-14 17:04] LABS: Erythrocyte Sedimentation Rate 9 MM/HR (0-20)
[2024-05-14 17:37] LABS: Alanine Aminotransferase 30 U/L (0-31); Albumin Level 4.4 g/dL (3.5-5.0); Alkaline Phosphatase 85 U/L (39-117); Anion Gap 12 (12-20); Aspartate Amino Transferase 25 U/L (5-31); Blood Urea Nitrogen 20 mg/dL (9-16); C Reactive Protein < 0.10 mg/dL (< or = 0.50); Calcium 10.4 mg/dL (8.4-10.2); Carbon Dioxide 25 mmol/L (22-29); Chloride 109 mmol/L (96-108); Estimated Glomerular Filt Rate > 60; Glucose Random 93 mg/dL (60-115); Potassium 4.1 mmol/L (3.3-5.1); Sodium 142 mmol/L (135-145); Total Protein 7.7 g/dL (6.5-8.0)
--- OUTSIDE RECORDS SUMMARY | 2024-05-14 17:41 | XMS_ITS | Clinical Summary ---
Author Organization [facility] [address] [facility] Address [address] [place] [address] Phone Care Team Providers Care Software Test Developer Name Role Phone Shady Stevens MD Primary Care Provider [phone] Allergies Active Allergy Reactions Criticality Noted Date Comments Mold 01/14/2023 Prochlorperazine 02/05/2005 Medications Jaja,CF, Pen 40 mg/0.4 mL pen 40 mg by Subconjunctival route every 14 days. 021 Active albuterol HFA (PROAIR HFA ; PROVENTIL HFA ; VENTOLIN HFA) 90 mcg/actuation inhaler Take 2 Puffs by mouth every 4 hours as needed for Cough or Wheezing. 023 Active azelastine (ASTELIN) 137 mcg (0.1 %) nasal spray 1 (one) time each day. 022 Active cholecalcifer ol (VITAMIN D-3) 50 mcg (2,000 unit) tablet Take by mouth 1 (one) time each day. Active ondansetron (ZOFRAN) 4 mg tablet Take 1 tablet (4 mg total) by mouth every 6 (six) hours if needed. 024 Active acetaminophen (TYLENOL) 500 mg tablet Take 1 tablet (500 mg total) by mouth 1 (one) time each day. Active ibuprofen (ADVIL,MOTRIN ) 200 mg tablet Take 1 tablet (200 mg total) by mouth 1 (one) time each day. Active levothyroxine (SYNTHROID, LEVOTHROID) 75 mcg tablet Take 1 tab Friday through Friday, skip Friday. 90 tablet 1 024 Active simvastatin (ZOCOR) 10 mg tablet Take 1 tablet (10 mg total) by mouth at bedtime. 90 tablet 1 025 Active losartan (COZAAR) 50 mg tablet Take 1 tablet (50 mg total) by mouth 1 (one) time each day. 90 tablet 3 025 Active losartan (Cozaar) 25 mg tablet Take 1 tablet (25 mg total) by mouth 1 (one) time each day. 90 each 3 024 2024 Discontinued(R eorder) losartan (Cozaar) 25 mg tablet Take 1 tablet (25 mg total) by mouth 1 (one) time each day. 90 each 3 025 2024 Discontinued Active Problems Problem Noted Date Diagnosed Date Hepatic steatosis 07/02/2022 Assessment & Plan (05/04/2024 10:32 AM EST): They noticed there was a call in the system today for the GI team to reach out to the patient to schedule ultrasound and blood work. I informed the patient to stop with radiology to schedule this. Assessment & Plan (02/02/2024 12:07 PM EST): Advised pt her dietary improvements will help. She can continue to use tylenol PRN. F/u in 4 months in office. Sooner if need be. He is asked to call with questions or concerns. Orders: Complete blood count; Future Comprehensive metabolic panel; Future Lipid panel with reflex to direct LDL; Future Thyroid stimulating hormone; Future Vitamin D 25 hydroxy; Future Postmenopausal bleeding 03/07/2022 Overview (12/23/2023): 03/07/22 EMS 3mm, EMB deferred Last Assessment & Plan: Unclear if bleeding was uterine, vaginal, vessicle or rectal in nature based on history. I discussed the common causes of postmenopausal bleeding including trauma, atrophy, and endometrial polyps, as well as less common but more concerning causes including endometrial hyperplasia and endometrial carcinoma. Recommend evaluation of endometrial stripe with pelvic ultrasound, which was ordered today. Discussed recommendation for endometrial sampling if the endometrial stripe measures >4mm on ultrasound. I reviewed with the patient that it is reasonable to continue with expectant management if the endometrial stripe is <4mm, however if she experiences another episode of PMB endometrial sampling would be indicated at that time. All questions answered. Cyst of right ovary 12/11/2021 Overview (12/23/2023): 03/07/22 cyst unchanged in size, no further monitoring needed. Last Assessment & Plan: Reviewed US with the patient. Cyst appears simple, patient reassured. Recommend f/u US to ensure cyst is stable in size, ordered today. Primary osteoarthritis of both knees 02/09/2019 Hypertension 04/23/2018 Assessment & Plan (05/04/2024 10:32 AM EST): Her blood pressure is suboptimal today. I am titrating losartan to 50 mg. Patient will be repeating labs which will assess her renal function in the next 2 weeks. Orders: Basic metabolic panel; Future Assessment & Plan (02/02/2024 12:07 PM EST): HTN is well controlled. She will continue with spironolactone and periodically monitor home BP. Orders: Complete blood count; Future Comprehensive metabolic panel; Future Lipid panel with reflex to direct LDL; Future Thyroid stimulating hormone; Future Vitamin D 25 hydroxy; Future Hypothyroidism (acquired) 04/29/2017 Assessment & Plan (05/04/2024 10:32 AM EST): Her TSH was in normal range 3 months ago. She will continue on 75 mcg of levothyroxine. Assessment & Plan (02/02/2024 12:07 PM EST): History of thyroid nodules last scan showed decreased size. Will monitor TSH. No palpable thyroid mass on exam today. Orders: Complete blood count; Future Comprehensive metabolic panel; Future Lipid panel with reflex to direct LDL; Future Thyroid stimulating hormone; Future Vitamin D 25 hydroxy; Future Osteopenia 06/29/2014 Overview (12/23/2023): S/p DEXA 02/2018 stable Pure hypercholesterolemia 01/09/2007 Asthma, mild intermittent 04/09/2005 Overview (12/23/2023): DUE URI'S Psoriasis 04/09/2005 Psoriatic arthropathy 02/05/2005 Overview (12/23/2023): Onset . Rx: methotrexate - partial response, nausea. Enbrel added Mar 2003 with good response Humira in place of Enbrel because of fading response 12/2010 Methotrexate held at time of hip fracture 03/31 - not restarted as it was not needed Winter 2018 - Humira hled due to flu 10/02: Humira continued held due to thrush fall 2018Humira restarted Encounters Date Type Department Care Team Description 05/10/2024 8:05 AM EST - 05/10/2024 11:59 PM EST Hospital Encounter Radiology Department - [address] [phone] Fatty liver Discharge Disposition: Home or Self Care 05/04/2024 9:00 AM EST Office Visit [facility] - [address] [phone] Tyler Padilla PA Hypothyroidism (acquired) (Primary Dx); Hypertension, unspecified type; Hepatic steatosis 05/04/2024 Telephone Gastroenterology - [place] [facility] [address] [facility] [address] [place] [address] Kyler Palma PA 04/05/2024 1:45 PM EST - 04/05/2024 11:59 PM EST Hospital Encounter Bone Density - [address] [phone] Screening for osteoporosis Discharge Disposition: Home or Self Care from Last 3 Months Immunizations Name Administration Dates Next Due H1N1 Inj Preservative Free 01/25/2009 Influenza trivalent, 0.5mL ( Fluzone High-dose) 65yo and older 12/20/2022,11/30/2021,01/15/2021,12/05,12/24/2018,04/04/2018,12/23/2016 Influenza trivalent, with pr eservative (Fluzone; Afluria) 6mo and older 01/18/2016,01/12/2015,01/11/2014,01/25,01/03/2012,12/21/2010,01/19/2010 ,12/23/2007,01/09/2007,02/26/2006,12/15 PPD Test 01/25/2009 CoSchedule Covid-19 Bivalent, Or iginal + Ba.1 (Non-US Trademark COMIRNATY Bivalent) 03/15/2022 CoSchedule SARS-CoV-2 COVID-19, mRNA, LNP-S, preservative free 06/16/2020,05/26/2020 Pneumococcal conjugate 13 va lent (Prevnar 13, PCV13) 2mo and older 07/18/2016 Pneumococcal polysaccharide 23 valent (Pneumovax 23) 2yo and older 05/06/2018,01/25/2013,01/04/2002 Tdap Tetanus diptheria acell ular pertussis (Boostrix; Adacel) 7yo and older 12/01/2012 Zoster recombinant (Shingrix ) 19yo and older 11/12/2019,04/24/2019 Surgical History Surgery Date Site/Laterality Comments APPENDECTOMY PROCEDURE: KS APPENDECTOMY OTHER SURGICAL HISTORY PROCEDURE: KS ARTHRS TEMPOROMANDIBULR JT DX W/WO SYNVAL BX SPX; COMMENT: 1989 OTHER SURGICAL HISTORY PROCEDURE: KS BIOPSY THYROID PERCUTANEOUS CORE NEEDLE; COMMENT: 2004 OTHER SURGICAL HISTORY PROCEDURE: KS RADIAL KERATOTOMY; COMMENT: bilateral MULTIPLE TOOTH EXTRACTIONS PROCEDURE: HISTORICAL DENTAL EXTRACTION FEMUR FRACTURE SURGERY 03/2014 Right PROCEDURE: KS OPEN TX FEMORAL FRACTURE DISTAL MED/LAT CONDYLE; COMMENT: Dr. De Santiago OTHER SURGICAL HISTORY 06/2015 Left PROCEDURE: KS ARTHRS KNEE DRLG OSTEOCHOND DISSECANS INT FIXJ; COMMENT: meniscal repair BREAST BIOPSY 1970sih Left PROCEDURE: BX BREAST; PERC NEEDLE CORE W/IMAG GUID; COMMENT: lt bx BREAST SURGERY 1970ish Left PROCEDURE: KS UNLISTED PROCEDURE BREAST; COMMENT: lt cyst removal 26 yrs old OTHER SURGICAL HISTORY Right PROCEDURE: KS ARTHRP ACETBLR/PROX FEM PROSTC AGRFT/ALGRFT COLONOSCOPY 03/14/2008 PROCEDURE: HISTORICAL COLONOSCOPY; COMMENT: Up to cecum, good preparation, small polyp removed:Hyperplastic, anal skin tag, otherwise normal COLONOSCOPY 02/04/2019 PROCEDURE: HISTORICAL COLONOSCOPY; COMMENT: 3 mm polyps x 2: both hyperplastic. Medical History Medical History Date Comments Pure hypercholesterolemia 01/09/2007 DX:Pur e hypercholesterolemia Psoriatic arthropathy ([facility]) 02/05/2005 DX:Psoriatic arthropathy ([facility]); COMMENT: On methotrexate and Enbrel Humeral fracture 10/04/2011 DX:Humeral frac ture Fracture of neck of femur ([facility]) 04/14/2014 DX:Fracture of neck of femur ([facility]); COMMENT: 2014 Hypertension 04/23/2018 DX:Hypertension Asthma, mild intermittent 04/09/2005 DX:Ast hma, mild intermittent; COMMENT: DUE URI'S History of hyperthyroidism 12/24/2016 DX:Hi story of hyperthyroidism; COMMENT: Treated with AGUILAR September 2016 Hypothyroidism (acquired) 04/29/2017 DX:Hyp othyroidism (acquired) Osteopenia 06/29/2014 DX:Osteopenia Primary osteoarthritis of right hip 07/27/2015 DX:Primary osteoarthritis of right hip; 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 Psoriasis 04/09/2005 DX:Psoriasis Nausea DX:Nausea Esophageal reflux DX:Esophageal reflux Right flank pain DX:Right flank pain Family History Medical History Relation Name Comments Cataracts Aunt Other: COPD Father Arthritis Mother stroke, cholest brandan, THR Blindness Neg Hx Breast cancer Neg Hx Glaucoma Neg Hx Macular degeneration Neg Hx Strabismus Neg Hx Relation Name Status Comments Aunt Father Mother Social History Tobacco Use Types Packs/Day Years Used Date Smoking Tobacco: Never Smokeless Tobacco: Never Tobacco Cessation:Counseling Given: Not Answered Alcohol Use Standard Drinks/Week Comments No 0 (1 standard drink = 0.6 oz pur e alcohol) Comments No Sex and Gender Information Value Date Recorded Sex Assigned at Female 03/11/2024 2:54 PM EST Legal Sex Female 9:51 AM EST Gender Identity Female 03/11/2024 2:54 PM EST Sexual Orientation Straight 03/11/2024 2: 54 PM EST Obstetrics History Last Filed Vital Signs Vital Sign Reading Time Taken Comments Blood Pressure 142/80 05/04/2024 8:48 AM EST Pulse 88 05/04/2024 8:48 AM EST Temperature 36.6 ??C (97.8 ??F) 05/04/2024 8:48 AM ES T Respiratory Rate 14 05/04/2024 8:48 AM EST Oxygen Saturation 98% 05/04/2024 8:48 AM EST Inhaled Oxygen Concentration - - Weight 63.5 kg (140 lb) 05/04/2024 8:48 AM EST Height 167.6 cm (5' 6 ) 05/04/2024 8:48 AM EST Body Mass Index 22.6 05/04/2024 8:48 AM EST Plan of Treatment Upcoming Encounters Date Type Department Care Team (Late st Contact Info) Description 07/05/2024 9:00 AM EDT Office Visit [facility] - [address] [phone] Tyler Padilla PA [address] [place], [place] 01/21/2025 4:30 PM EST Appointment Radiology Department - [address] [phone] Health Maintenance Due Date Last Done Comments Hepatitis A Vaccines (1 of 2 - Risk 2-dose series) 1970 Hepatitis B Vaccines (1 of 3 - Risk 3-dose series) 2011 Social Influencers of Health Screening 02/23/2022 DTaP,Tdap,and Td Vaccines (2 - Td or Tdap) 12/01/2022 12/01/2012 Depression Screening 10/01/2024 10/02/2023 Falls Risk Assessment 10/01/2024 10/02/2023 Medicare Annual Wellness Visit 10/01/2024 10/02/2023 Hypertension/CHF/CAD Annual BMP Blood Test 05/10/2025 05/10/2024, 04/05/2024, 02/02/2024, Additional history exists Breast Cancer Screening 12/31/2025 01/01/20, 01/01/2024, 12/27/2022, Additional history exists Colorectal Cancer Screening: Colonoscopy 02/04/2029 02/04/2019 Cholesterol Screening (Lipid Panel) 05/10/2029 05/10/2024, 02/02/2024, 09/11/2023, Additional history exists Osteoporosis Screening (Bone Density Screening) 04/05/2034 04/05/2024, 08/22/2021, 02/18/2019 Pneumococcal Vaccine: 50+ Years Completed 05/06/2018, 07/18/2016, 01/25/2013, Additional history exists Hepatitis C Screening Completed 12/26/2018 Zoster Vaccines Completed 11/12/2019, 04/24/2019 RSV Immunization Patients 60+ Years Old Completed 03/28/2023 COVID-19 Vaccine Completed 01/14/2024, 02/2024, 11/02/2021, Additional history exists Influenza Vaccine Completed 01/14/2024, , 11/30/2021, Additional history exists HIB Vaccines Aged Out No longer eligi ble based on patient's age to complete this topic HPV Vaccines Aged Out No longer eligi ble based on patient's age to complete this topic IPV Vaccines Aged Out No longer eligi ble based on patient's age to complete this topic MMR Vaccines Aged Out No longer eligi ble based on patient's age to complete this topic Meningococcal ACWY Vaccine Aged Out N o longer eligible based on patient's age to complete this topic Meningococcal B Vacine Aged Out No lo nger eligible based on patient's age to complete this topic RSV Immunization Patients Under 20 months Aged Out No longer eligible based on patient's age to complete this topic Varicella Vaccines Aged Out No longer eligible based on patient's age to complete this topic Procedures Procedure Name Priority Date/Time Associated Diagnosis Comments CBC WITH AUTO DIFFERENTIAL Routine 05/10/2024 8:37 AM EST Fatty liver CBC AND DIFFERENTIAL Routine 05/10/2024 8:37 AM EST Fatty liver COMPREHENSIVE METABOLIC PANEL Routine 05/10/2024 8:37 AM EST Fatty liver LIPID PANEL WITH REFLEX TO DIRECT LDL Routine 05/10/2024 8:37 AM EST Fatty liver US ABDOMEN LIMITED Routine 05/10/2024 8: 20 AM EST Fatty liver BASIC METABOLIC PANEL Routine 04/05/2024 2:30 PM EST Hypercalcemia PARATHYROID HORMONE INTACT Routine 04/05/2024 2:30 PM EST Hypercalcemia BD BONE DENSITY DXA AXIAL SKELETON Routine 04/05/2024 2:13 PM EST Screening for osteoporosis SCREENING MAMMOGRAPHY BI 2-VIEW BREAST INC CAD Routine 01/01/2024 4:26 PM EDT Encounter for screening mammogram for malignant neoplasm of breast DEPRESSION SCREENING Routine 10/02/2023 FALLS RISK ASSESSMENT Routine 10/02/2023 COLONOSCOPY Routine 02/04/2019 HEPATITIS C SCREENING Routine 12/26/2018 from Last 3 Months or Most Recently Relevant to Health Maintenance Results * (ABNORMAL) Lipid panel with reflex to direct LDL (05/10/2024 8:37 AM EST) Cholesterol 217(H) 0 - 200 mg/dL LAB CHEMISTRY METHOD 05/10/2024 1:40 PM [facility] Triglycerides 123 0 - 150 mg/dL LAB CHEMISTRY METHOD 05/10/2024 1:40 PM [facility] HDL 96 >=40 mg/dL LAB CHEMISTRY METHOD 05/10/2024 1:40 PM [facility] LDL Calculated 96 0 - 100 mg/dL LAB CHEMISTRY METHOD 05/10/2024 1:40 PM [facility] VLDL Cholesterol Twan 24.6 mg/dL LAB CHEMISTRY METHOD 05/10/2024 1:40 PM [facility] Non HDL Chol. (LDL+VLDL) 121 <145 mg/dL LAB CHEMISTRY METHOD 05/10/2024 1:40 PM [facility] Chol/HDL Ratio 2.3 0.0 - 4.4 LAB CHEMISTRY METHOD 05/10/2024 1:40 PM [facility] Blood Venous blood specimen / Unknown Venipuncture / Unknown 05/10/2024 8:37 AM EST 05/10/2024 8:37 AM EST us Kyler MUÑOZ LAB BLOOD ORDERABLES Final Resu lt [facility] [address] [place] [address], * (ABNORMAL) CBC auto differential (05/10/2024 8:37 AM EST) [facility] WBC 6.6 4.8 - 10.8 K/mcL LAB HEMETOLOGY METHOD 05/10/2024 10:03 AM [facility] RBC 4.20 3.80 - 4.80 M/mcL LAB HEMETOLOGY METHOD 05/10/2024 10:03 AM [facility] Hemoglobin 12.6 11.5 - 16.0 g/dL LAB HEMETOLOGY METHOD 05/10/2024 10:03 AM [facility] Hematocrit 40.1 35.0 - 47.0 % LAB HEMETOLOGY METHOD 05/10/2024 10:03 AM [facility] MCV 95.7 79.0 - 98.0 FL LAB HEMETOLOGY METHOD 05/10/2024 10:03 AM [facility] MCH 30.1 27.0 - 32.0 pcg LAB HEMETOLOGY METHOD 05/10/2024 10:03 AM [facility] MCHC 31.4(L) 32.0 - 37.0 g/dL LAB HEMETOLOGY METHOD 05/10/2024 10:03 AM [facility] RDW 12.5 11.0 - 15.0 % LAB HEMETOLOGY METHOD 05/10/2024 10:03 AM [facility] Platelets 284 130 - 400 K/mcL LAB HEMETOLOGY METHOD 05/10/2024 10:03 AM [facility] MPV 10.2 7.0 - 11.0 FL LAB HEMETOLOGY METHOD 05/10/2024 10:03 AM [facility] NRBC 0.0 <1.0 % LAB HEMETOLOGY METHOD 05/10/2024 10:03 AM [facility] NRBC Absolute 0.00 <0.10 K/mcL LAB HEMETOLOGY METHOD 05/10/2024 10:03 AM [facility] Neutrophils Relative 36.2 % LAB HEMETOLOGY METHOD 05/10/2024 10:03 AM [facility] Lymphocytes Relative 51.7 % LAB HEMETOLOGY METHOD 05/10/2024 10:03 AM [facility] Monocytes Relative 7.4 % LAB HEMETOLOGY METHOD 05/10/2024 10:03 AM [facility] Eosinophils Relative 3.6 % LAB HEMETOLOGY METHOD 05/10/2024 10:03 AM [facility] Basophils Relative 0.9 % LAB HEMETOLOGY METHOD 05/10/2024 10:03 AM [facility] Immature Granulocytes Relative 0.2 % LAB HEMETOLOGY METHOD 05/10/2024 10:03 AM [facility] Neutrophils Absolute 2.40 1.50 - 7.00 K/mcL LAB HEMETOLOGY METHOD 05/10/2024 10:03 AM [facility] Lymphocytes Absolute 3.43 1.00 - 5.00 K/mcL LAB HEMETOLOGY METHOD 05/10/2024 10:03 AM [facility] Monocytes Absolute 0.49 0.20 - 1.00 K/mcL LAB HEMETOLOGY METHOD 05/10/2024 10:03 AM [facility] Eosinophils Absolute 0.24 0.00 - 0.50 K/mcL LAB HEMETOLOGY METHOD 05/10/2024 10:03 AM [facility] Basophils Absolute 0.06 0.00 - 0.20 K/mcL LAB HEMETOLOGY METHOD 05/10/2024 10:03 AM EST [facility] Immature Granulocytes Absolute 0.01 0.00 - 0.03 K/[facility] LAB HEMETOLOGY METHOD 05/10/2024 10:03 AM [facility] Blood Venous blood specimen / Unknown Venipuncture / Unknown 05/10/2024 8:37 AM EST 05/10/2024 8:37 AM EST us Kyler MUÑOZ LAB BLOOD ORDERABLES Final Resu lt [facility] [address] [place] [address], [place] [phone] * Comprehensive metabolic panel (05/10/2024 8:37 AM EST) Sodium 143 133 - 145 mmol/L LAB CHEMISTRY METHOD 05/10/2024 1:33 PM [facility] Potassium 4.1 3.5 - 5.5 mmol/L LAB CHEMISTRY METHOD 05/10/2024 1:33 PM [facility] Chloride 110 96 - 110 mmol/L LAB CHEMISTRY METHOD 05/10/2024 1:33 PM [facility] CO2 26 21 - 32 mmol/L LAB CHEMISTRY METHOD 05/10/2024 1:33 PM [facility] Anion Gap 7 3 - 11 LAB CHEMISTRY METHOD 05/10/2024 1:33 PM [facility] Glucose 97 70 - 100 mg/dL LAB CHEMISTRY METHOD 05/10/2024 1:33 PM [facility] BUN 14 5 - 25 mg/dL LAB CHEMISTRY METHOD 05/10/2024 1:33 PM [facility] Creatinine 0.62 0.50 - 1.10 mg/dL LAB CHEMISTRY METHOD 05/10/2024 1:33 PM [facility] eGFR 94 >=60 mL/min/1. 73m2 LAB CHEMISTRY METHOD 05/10/2024 1:33 PM [facility] Comment:Calculation based on the??Chronic Kidney Disease Epidemiology Collaboration (CKD-EPI) equation refit??without adjustment for race. BUN/Creatinine Ratio 22.6 LAB CHEMISTRY METHOD 05/10/2024 1:33 PM [facility] Calcium 9.9 8.5 - 10.5 mg/dL LAB CHEMISTRY METHOD 05/10/2024 1:33 PM [facility] AST (SGOT) 25 10 - 42 unit/L LAB CHEMISTRY METHOD 05/10/2024 1:33 PM [facility] ALT (SGPT) 41 10 - 60 unit/L LAB CHEMISTRY METHOD 05/10/2024 1:33 PM [facility] Alkaline Phosphatase 88 42 - 121 unit/L LAB CHEMISTRY METHOD 05/10/2024 1:33 PM [facility] Total Protein 7.3 6.0 - 8.0 g/dL LAB CHEMISTRY METHOD 05/10/2024 1:33 PM [facility] Albumin 3.9 3.2 - 5.0 g/dL LAB CHEMISTRY METHOD 05/10/2024 1:33 PM [facility] Total Bilirubin 1.1 0.0 - 1.4 mg/dL LAB CHEMISTRY METHOD 05/10/2024 1:33 PM [facility] Blood Venous blood specimen / Unknown Venipuncture / Unknown 05/10/2024 8:37 AM EST 05/10/2024 8:37 AM EST us Kyler MUÑOZ LAB BLOOD ORDERABLES Final Resu lt [facility] [address] [place] [address], [place] [phone] * US Abdomen Limited (05/10/2024 8:20 AM EST) Anatomical Region Laterality Modality Body Ultrasound 05/10/2024 11:2 0 AM EST Impressions 05/10/2024 11:22 AM EST Hepatic steatosis. Gallbladder polyp, probably not significantly changed, allowing for differences in cursor placement. -------- FINAL REPORT -------- Dictated By: Bebe Oviedo Dictated Date: 05/10/2024 11:20 ET Assigned Physician: Bebe Oviedo Reviewed and Electronically Signed By: Bebe Oviedo Signed Date: 05/10/2024 11:22 ET Workstation ID: [id number] Transcribed By: Self Edit Transcribed Date: 05/10/2024 11:20 ET Narrative 05/10/2024 11:22 AM EST ABDOMINAL ULTRASOUND-LIMITED History: ??Hepatic steatosis. Gallbladder polyp. Comparison: Right upper quadrant ultrasound 09/11/2023. FINDINGS: There is a 0.3 x 0.4 x 0.3 cm gallbladder polyp, previously 0.4 x 0.5 x 0.4 cm. There is no evidence of cholelithiasis. The common bile duct is not dilated, measuring 6 mm. ??The gallbladder wall is not thickened. No pericholecystic fluid is seen. No ascites are seen. The visualized pancreas is normal in size and demonstrates normal echotexture. The liver measures 11.7 cm in length and demonstrates mildly fatty echotexture. No focal lesions are seen in the liver and there is no evidence of intrahepatic ductal dilation. Normal hepatopedal flow is seen in the main portal vein. No evidence of hydronephrosis, mass, or calculus was seen in the right kidney. ??The right kidney measures 9.8 cm in greatest length. Procedure Note Bebe Oviedo MD - 05/10/2024 ABDOMINAL ULTRASOUND-LIMITED History: Hepatic steatosis. Gallbladder polyp. Comparison: Right upper quadrant ultrasound 09/11/2023. FINDINGS: There is a 0.3 x 0.4 x 0.3 cm gallbladder polyp, previously 0.4x 0.5 x 0.4 cm. There is no evidence of cholelithiasis. The common bileduct is not dilated, measuring 6 mm. The gallbladder wall is notthickened. No pericholecystic fluid is seen. No ascites are seen. The visualized pancreas is normal in size and demonstrates normalechotexture. The liver measures 11.7 cm in length and demonstrates mildly fattyechotexture. No focal lesions are seen in the liver and there is noevidence of intrahepatic ductal dilation. Normal hepatopedal flow is seenin the main portal vein. No evidence of hydronephrosis, mass, or calculus was seen in the rightkidney. The right kidney measures 9.8 cm in greatest length. IMPRESSION: Hepatic steatosis. Gallbladder polyp, probably not significantly changed, allowing fordifferences in cursor placement. -------- FINAL REPORT -------- Dictated By: Bebe Oviedo Dictated Date: 05/10/2024 11:20 ET Assigned Physician: Bebe Oviedo Reviewed and Electronically Signed By: Bebe Oviedo Signed Date: 05/10/2024 11:22 ET Workstation ID: [id number] Transcribed By: Self Edit Transcribed Date: 05/10/2024 11:20 ET Kyler MUÑOZ IMG US PROCEDURES Final Result * Parathyroid hormone intact (04/05/2024 2:30 PM EST) [facility] PTH 57.2 18.5 - 88.0 pcg/mL LAB CHEMISTRY METHOD 04/05/2024 4:52 PM EST [facility] Blood Venous blood specimen / Unknown Venipuncture / Unknown 04/05/2024 2:30 PM EST 04/05/2024 2:30 PM EST Tyler MUÑOZ LAB BLOOD ORDERABLES Fin al Result [facility] [address] [place] [address], [place] [phone] * (ABNORMAL) Basic metabolic panel (04/05/2024 2:30 PM EST) [facility] Sodium 138 133 - 145 mmol/L LAB CHEMISTRY METHOD 04/05/2024 4:51 PM [facility] Potassium 4.0 3.5 - 5.5 mmol/L LAB CHEMISTRY METHOD 04/05/2024 4:51 PM [facility] Chloride 105 96 - 110 mmol/L LAB CHEMISTRY METHOD 04/05/2024 4:51 PM [facility] CO2 31 21 - 32 mmol/L LAB CHEMISTRY METHOD 04/05/2024 4:51 PM [facility] Anion Gap 2(L) 3 - 11 LAB CHEMISTRY METHOD 04/05/2024 4:51 PM [facility] Glucose 101(H) 70 - 100 mg/dL LAB CHEMISTRY METHOD 04/05/2024 4:51 PM [facility] BUN 14 5 - 25 mg/dL LAB CHEMISTRY METHOD 04/05/2024 4:51 PM [facility] Creatinine 0.67 0.50 - 1.10 mg/dL LAB CHEMISTRY METHOD 04/05/2024 4:51 PM [facility] eGFR 92 >=60 mL/min/1. 73m2 LAB CHEMISTRY METHOD 04/05/2024 4:51 PM [facility] Comment:Calculation based on the??Chronic Kidney Disease Epidemiology Collaboration (CKD-EPI) equation refit??without adjustment for race. BUN/Creatinine Ratio 20.9 LAB CHEMISTRY METHOD 04/05/2024 4:51 PM [facility] Calcium 10.2 8.5 - 10.5 mg/dL LAB CHEMISTRY METHOD 04/05/2024 4:51 PM [facility] Blood Venous blood specimen / Unknown Venipuncture / Unknown 04/05/2024 2:30 PM EST 04/05/2024 2:30 PM EST us Tyler [facility] BLOOD ORDERABLES Fin al Result [facility] [address] [place] [address], [place] [phone] * BD Bone Density DXA Axial Skeleton (04/05/2024 2:13 PM EST) Anatomical Region Laterality Modality Wrist, Hip, L-spine Bone Densito metry 04/05/2024 2:41 PM EST Impressions 04/05/2024 2:44 PM EST Osteopenia by WHO criteria. The [facility] Department of Internal Medicine recommends using National Osteoporosis Foundation (NOF) guidelines in treatment decisions related to osteoporosis. NOF guidelines suggest considering treatment for postmenopausal women and men aged 50 or older presenting with the following: History of hip or vertebral fracture. T-score = -2.5 (DXA) at the femoral neck, total hip, or spine, after appropriate evaluation to exclude secondary causes. Low bone mass (T-score between -1.0 and -2.5 at the femoral neck or spine) AND a 10-year probability of a hip fracture = 3% OR a 10-year probability of a major osteoporosis-related fracture = 20% based on the [place]-adapted WHO algorithm Please note that all treatment decisions require clinical judgment and consideration of individual patient factors, including patient preferences, co-morbidities, previous drug use, risk factors not captured in the FRAX model (e.g., frailty, falls, vitamin D deficiency, increased bone turnover, interval significant decline in bone density) and possible under- or over-estimation of fracture risk by FRAX. Optional alternative screening schedule based on princess Izaguirre., [facility] April 04, 2011 for patients with osteopenia (based on hip BMD T-score) is as follows: * ??advanced osteopenia (T scores -2.00 to -2.49), BMD testing every year * ??moderate osteopenia (T scores -1.50 to -1.99), BMD testing every 5 years mild osteopenia or normal BMD (T scores -1.50 and higher), BMD testing every 15 years -------- FINAL REPORT -------- Dictated By: Eliza Steve Dictated Date: 04/05/2024 14:41 ET Assigned Physician: Eliza Steve Reviewed and Electronically Signed By: Eliza Steve Signed Date: 04/05/2024 14:44 ET Workstation ID: [id number] Transcribed By: Self Edit Transcribed Date: 04/05/2024 14:41 ET Narrative 04/05/2024 2:44 PM EST BONE DENSITY SCAN (DEXA): FINDINGS: Lumbar Spine T-score is -2.1. ?? (SD relative to 20-29 y/o adult) Z-score is 0.1. ??(SD relative to age matched peers) This is considered osteopenia by WHO criteria. Left Hip T-score is -2.2. Z-score is -0.3. This is considered osteopenia by WHO criteria. Comparison exam(s): 08/22/2021. ??4.2% loss of lumbar spine bone mineral density which is statistically significant at the 95% confidence level. ??No statistically significant change in left hip bone mineral density. Lateral survey view of the thoracolumbar spine shows no significant compression deformities of the visualized vertebral elements. Procedure Note Eliza Steve MD - 04/05/2024 BONE DENSITY SCAN (DEXA): FINDINGS: Lumbar Spine T-score is -2.1. (SD relative to 20-29 y/o adult) Z-score is 0.1. (SD relative to age matched peers) This is considered osteopenia by WHO criteria. Left Hip T-score is -2.2. Z-score is -0.3. This is considered osteopenia by WHO criteria. Comparison exam(s): 08/22/2021. 4.2% loss of lumbar spine bone mineraldensity which is statistically significant at the 95% confidence level.No statistically significant change in left hip bone mineral density. Lateral survey view of the thoracolumbar spine shows no significantcompression deformities of the visualized vertebral elements. IMPRESSION: Osteopenia by WHO criteria. The [facility] Department of Internal Medicine recommendsusing National Osteoporosis Foundation (NOF) guidelines in treatmentdecisions related to osteoporosis. NOF guidelines suggest consideringtreatment for postmenopausal women and men aged 50 or older presentingwith the following: History of hip or vertebral fracture. T-score = -2.5 (DXA) at the femoral neck, total hip, or spine, afterappropriate evaluation to exclude secondary causes. Low bone mass (T-score between -1.0 and -2.5 at the femoral neck or spine)AND a 10-year probability of a hip fracture = 3% OR a 10-year probabilityof a major osteoporosis-related fracture = 20% based on the [place]-adapted WHOalgorithm Please note that all treatment decisions require clinical judgment andconsideration of individual patient factors, including patientpreferences, co-morbidities, previous drug use, risk factors not capturedin the FRAX model (e.g., frailty, falls, vitamin D deficiency, increasedbone turnover, interval significant decline in bone density) and possibleunder- or over-estimation of fracture risk by FRAX. Optional alternative screening schedule based on raymond Izaguirre al., [facility] for patients with osteopenia (based on hip BMD T-score)is as follows: * advanced osteopenia (T scores -2.00 to -2.49), BMD testing every year * moderate osteopenia (T scores -1.50 to -1.99), BMD testing every 5years mild osteopenia or normal BMD (T scores -1.50 and higher), BMD testingevery 15 years -------- FINAL REPORT -------- Dictated By: Eliza Steve Dictated Date: 04/05/2024 14:41 ET Assigned Physician: Eliza Steve Reviewed and Electronically Signed By: Eliza Steve Signed Date: 04/05/2024 14:44 ET Workstation ID: [id number] Transcribed By: Self Edit Transcribed Date: 04/05/2024 14:41 ET Tyler MUÑOZ IMG DXA PROCEDURES Final Result * SCREENING MAMMOGRAPHY BI 2-VIEW BREAST INC CAD (01/01/2024 4:26 PM EDT) Anatomical Region Laterality Modality Radiographic Ainsley ging 12/27/2022 3:20 PM EDT Narrative 01/02/2024 11:00 AM EDT This is a summary report. The complete report is available in the patient's medical record. If you cannot access the medical record, please contact the sending organization for a detailed fax or copy. Full field digital screening tomosynthesis mammography, reviewed with CAD and compared to previous. The breast tissue is heterogeneously dense, limiting sensitivity. No suspicious mass, architectural distortion or suspicious calcifications are identified. IMPRESSION: : Dense breast tissue, limiting the sensitivity of mammography. No mammographic evidence of malignancy. BIRADS 1-Negative; N. Breast density: The breasts are heterogeneously dense, which may obscure small masses. 5 year breast cancer risk assessment N/A Lifetime breast cancer risk assessment N/A Breast cancer risk category Breast cancer risk not assessed Location: [facility], [address] [place] [address], [address], [phone] Procedure Note Hugo Laurent MD - 01/13/2024 This is a summary report. The complete report is available in thepatient's medical record. If you cannot access the medical record, pleasecontact the sending organization for a detailed fax or copy. Full field digital screening tomosynthesis mammography, reviewed with CADand compared to previous. The breast tissue is heterogeneously dense,limiting sensitivity. No suspicious mass, architectural distortion orsuspicious calcifications are identified. IMPRESSION: : Dense breast tissue, limiting the sensitivity of mammography. Nomammographic evidence of malignancy. BIRADS 1-Negative; N. Breast density: The breasts are heterogeneously dense, which may obscuresmall masses. 5 year breast cancer risk assessment N/A Lifetime breast cancer risk assessment N/A Breast cancer risk category Breast cancer risk not assessed Location: [facility], [address] [place] [address], [address], [phone] Shady Stevens MD IMG XR PROCEDURES Final Result * Falls Risk Assessment (10/02/2023) Pathologist [facility] Falls Risk Assessment abstracted Historical Provider HEALTH MAINTENANCE Final Result * Depression Screening (10/02/2023) Pathologist [facility] Depression Screening abstracted Historical Provider HEALTH MAINTENANCE Final Result * Colonoscopy (02/04/2019) Pathologist [facility] Colonoscopy abnormal, abstracted Anatomical Region Laterality Modality Other Historical Provider HEALTH MAINTENANCE Final Result * Hepatitis C Screening (12/26/2018) Hepatitis C Screening abstracted Historical Provider HEALTH MAINTENANCE Final Result from Last 3 Months or Most Recently Relevant to Health Maintenance Insurance MEDICARE [facility] Care Teams Software Test Developer Relationship Specialty Start Date End Date Shady Stevens MD [address] [place] [address] PCP - General Internal Medicine 01/15/21
--- OUTSIDE RECORDS SUMMARY | 2024-05-14 17:41 | XMS_ITS | Encounter Summary ---
Author Organization [facility] Address [address] [place] [address] Care Team Providers Care Shape Brick Molder Name Role Phone Shady Stevens MD Primary Care Provider [phone] Reason for Referral * Imaging (Routine) - Closed Specialty Diagnoses / Procedures Referred By Contac t Referred To Contact Radiology Diagnoses Fatty liver Procedures US Abdomen Limited Kyler Palma PA [address] [place] [address] Phone: tel: fax: [facility] Referral ID Status Reason Start Date Expiration Date Visits Re quested Visits Authorized [id number] Closed 05/04/2024 05/04/2025 1 1 Reason for Visit * Imaging (Routine) - Closed Specialty Diagnoses / Procedures Referred By Kaden huddleston Referred To Contact Radiology Diagnoses Fatty liver Procedures US Abdomen Limited Kyler Palma PA [address] [place] [address] Phone: tel: fax: [facility] Referral ID Status Reason Start Date Expiration Date Visits Re quested Visits Authorized [id number] Closed 05/04/2024 05/04/2025 1 1 Encounter Details Date Type Department Care Team (Latest Contact Info) Description 05/10/2024 8:05 AM EST - 05/10/2024 11:59 PM EST Hospital Encounter Radiology Department - [address] [phone] Fatty liver Discharge Disposition: Home or Self Care Social History Tobacco Use Types Packs/Day Years Used Date Smoking Tobacco: Never Smokeless Tobacco: Never Alcohol Use Standard Drinks/Week Comments No 0 (1 standard drink = 0.6 oz pur e alcohol) Comments No Sex and Gender Information Value Date Recorded Sex Assigned at Female 03/11/2024 2:54 PM EST Legal Sex Female 9:51 AM EST Gender Identity Female 03/11/2024 2:54 PM EST Sexual Orientation Straight 03/11/2024 2: 54 PM EST documented as of this encounter Medications at Time of Discharge acetaminophen (TYLENOL) 500 mg tablet Take 1 tablet (500 mg total) by mouth 1 (one) time each day. albuterol HFA (PROAIR HFA ; PROVENTIL HFA ; VENTOLIN HFA) 90 mcg/actuation inhaler Take 2 Puffs by mouth every 4 hours as needed for Cough or Wheezing. 06/06/2022 azelastine (ASTELIN) 137 mcg (0.1 %) nasal spray 1 (one) time each day. 11/26/2021 cholecalciferol (VITAMIN D-3) 50 mcg (2,000 unit) tablet Take by mouth 1 (one) time each day. Humira,CF, Pen 40 mg/0.4 mL pen 40 mg by Subconjunctival route every 14 days. 02/16/2021 ibuprofen (ADVIL,MOTRIN) 200 mg tablet Take 1 tablet (200 mg total) by mouth 1 (one) time each day. levothyroxine (SYNTHROID, LEVOTHROID) 75 mcg tablet Take 1 tab Friday through Friday, skip Friday. 90 tablet 1 03/08/2024 losartan (COZAAR) 50 mg tablet Take 1 tablet (50 mg total) by mouth 1 (one) time each day. 90 tablet 3 05/04/2024 ondansetron (ZOFRAN) 4 mg tablet Take 1 tablet (4 mg total) by mouth every 6 (six) hours if needed. 07/08/2023 simvastatin (ZOCOR) 10 mg tablet Take 1 tablet (10 mg total) by mouth at bedtime. 90 tablet 1 04/01/2024 documented as of this encounter Discharge Disposition Disposition Code Departure Means Destination Home or Self Care documented in this encounter Plan of Treatment Upcoming Encounters Date Type Department Care Team (Late st Contact Info) Description 07/05/2024 9:00 AM EDT Office Visit Adult Medicine [facility] [address] [place], [place] [phone] Tyler Padilla PA [address] [place], [place] 01/21/2025 4:30 PM EST Appointment Radiology Department - [address] [phone] documented as of this encounter Procedures Procedure Name Priority Date/Time Associated Diagnosis Comments US ABDOMEN LIMITED Routine 05/10/2024 8: 20 AM EST Fatty liver documented in this encounter Results * US Abdomen Limited (05/10/2024 8:20 AM [...] Signed Date: 05/10/2024 11:22 ET Workstation ID: [id number] Transcribed By: Self Edit Transcribed Date: 05/10/2024 [...] Signed Date: 05/10/2024 11:22 ET Workstation ID: [id number] Transcribed By: Self Edit Transcribed Date: 05/10/2024 11:20 ET us Kyler MUÑOZ IMG US PROCEDURES Final Result documented in this encounter Visit Diagnoses Diagnosis Fatty liver Other chronic nonalcoholic liver disease Encounter for screening mammogram for breast cancer documented in this encounter Care Teams Shape Brick Molder Relationship Specialty Start Date End Date Shady Stevens MD [address] [place] [address] PCP - General Internal Medicine 01/15/21 documented as of this encounter
--- OUTSIDE RECORDS SUMMARY | 2024-05-14 17:41 | XMS_ITS | Encounter Summary ---
Author Organization [facility] Address [address] [place] [address] Care Team Providers Care First Front Ventilator Name Role Phone Shady Stevens MD Primary Care Provider [phone] Reason for Visit * Reason Comments Hypertension 3 month follow up hypercalcemia Asthma Encounter Details Date Type Department Care Team (Late st Contact Info) Description 05/04/2024 9:00 AM EST Office Visit Adult Medicine [facility] [address] [place], [place] [phone] Tyler Padilla PA [address] [place] [address] Hypothyroidism (acquired) (Primary Dx); Hypertension, unspecified type; Hepatic steatosis Social History Tobacco Use Types Packs/Day Years [...] PM EST documented as of this encounter Last Filed Vital Signs Vital Sign Reading [...] Mass Index 22.6 05/04/2024 8:48 AM EST documented in this encounter Ordered Prescriptions Prescription Sig Dispense Quantity Refills Last Filled Start Date End Date losartan (COZAAR) 50 mg tablet Take 1 tablet (50 mg total) by mouth 1 (one) time each day. 90 tablet 3 05/04/2024 documented in this encounter Progress Notes * WANDA Vogel - 05/04/2024 9:00 AM ESTAssociated Problem(s): Hypothyroidism (acquired) Her TSH was in normal range 3 months ago. She will continue on 75 mcg of levothyroxine. * WANDA Vogel - 05/04/2024 9:00 AM ESTAssociated Problem(s): Hypertension Her blood pressure is suboptimal today. I am titrating losartan to 50 mg. Patient will be repeatinglabs which will assess her renal function in the next 2 weeks. Orders: Basic metabolic panel; Future * WANDA Vogel - 05/04/2024 9:00 AM ESTAssociated Problem(s): Hepatic steatosis They noticed there was a call in the system today for the GI team to reach out to the patient to schedule ultrasound and blood work. I informed the patient to stop with radiology to schedule this. * WANDA Vogel - 05/04/2024 9:00 AM EST PATIENT'S PCP: Shady Stevens MD LAST VISIT IN THIS DEPARTMENT: 02/02/2024 LAST VISIT WITH THIS PROVIDER: 02/02/2024 Kirstin Lua is a 74 y.o. (: 1950) female who presents today for: Chief Complaint Patient presents with Hypertension 3 month follow up hypercalcemia Asthma Assessment/Plan Assessment & Plan Hypothyroidism (acquired) Her TSH was in normal range 3 months ago. She will continue on 75 mcg of levothyroxine. Hypertension, unspecified type Her blood pressure is suboptimal today. I am titrating losartan to 50 mg. Patient will be repeatinglabs which will assess her renal function in the next 2 weeks. Orders: Basic metabolic panel; Future Hepatic steatosis They noticed there was a call in the system today for the GI team to reach out to the patient to schedule ultrasound and blood work. I informed the patient to stop with radiology to schedule this. I recommended 3-month follow-up, patient felt more comfortable following up in the office in 2 months. This is reasonable. No follow-ups on file. Subjective 74 y/o F presenting for evaluation of her medical conditions. Previously she was treated with spironolactone for hypertension control, but after recent hypercalcemia she is switched to losartan which she has been tolerating well without side effect. Her blood pressure is suboptimal in the office today. She is following with orthopedics She is getting injections in her back She continues to follow with rheumatology, Dr. Chet LIRA, next visit in July. She is having a hard time in the morning getting up with her pain, she continues to restrict her Tylenol use, and the patient is once again reminded that she can be a bit more liberal. She is currently only taking 1 Tylenol 3-4 times a week. Hypertension Pertinent negatives include no chest pain, headaches or shortness of breath. Asthma There is no shortness of breath. Pertinent negatives include no chest pain, ear pain, fever, headaches or sore throat. Her past medical history is significant for asthma. Review of Systems Constitutional: Negative for chills and fever. HENT: Negative for ear pain, sinus pain and sore throat. Respiratory: Negative for shortness of breath. Cardiovascular: Negative for chest pain. Endocrine: Negative for polydipsia and polyuria. Genitourinary: Negative for flank pain. Musculoskeletal: Negative for joint swelling. Skin: Negative for rash. Neurological: Negative for headaches. Psychiatric/Behavioral: Negative for confusion. The following portions of the patient's chart were reviewed in this encounter and updated as appropriate: Tobacco Allergies Meds Problems Med Hx Surg Hx Fam Hx Objective Visit Vitals BP (!) 142/80 Pulse 88 Temp 36.6 ??C (97.8 ??F) (Temporal) Resp 14 Ht 1.676 m (66 ) Wt 63.5 kg (140 lb) SpO2 98% BMI 22.60 kg/m?? OB Status Postmenopausal Smoking Status Never BSA 1.72 m?? SpO2: 98 % BP Readings from Last 3 Encounters: 05/04/24 (!) 142/80 02/02/24 128/68 10/02/23 130/80 Wt Readings from Last 3 Encounters: 05/04/24 63.5 kg (140 lb) 02/02/24 62.1 kg (137 lb) 10/02/23 63 kg (138 lb 12.8 oz) Physical Exam Constitutional: General: She is not in acute distress. Appearance: Normal appearance. Eyes: Pupils: Pupils are equal, round, and reactive to light. Cardiovascular: Rate and Rhythm: Normal rate and regular rhythm. Heart sounds: No murmur heard. Pulmonary: Effort: No respiratory distress. Breath sounds: No wheezing, rhonchi or rales. Abdominal: Palpations: Abdomen is soft. Musculoskeletal: General: No deformity. Cervical back: Normal range of motion and neck supple. Right lower leg: No edema. Left lower leg: No edema. Skin: Coloration: Skin is not jaundiced. Findings: No rash. Neurological: Mental Status: She is alert and oriented to person, place, and time. Mental status is at baseline. Psychiatric: Mood and Affect: Mood normal. Behavior: Behavior normal. Allergies Allergen Reactions Mold Prochlorperazine Current Outpatient Medications Medication Instructions acetaminophen (TYLENOL) 500 mg, Daily albuterol HFA (PROAIR HFA ; PROVENTIL HFA ; VENTOLIN HFA) 90 mcg/actuation inhaler Take 2 Puffs by mouth every 4 hours as needed for Cough or Wheezing. azelastine (ASTELIN) 137 mcg (0.1 %) nasal spray Daily cholecalciferol (VITAMIN D-3) 50 mcg (2,000 unit) tablet Daily Humira,CF, Pen 40 mg/0.4 mL pen 40 mg by Subconjunctival route every 14 days. ibuprofen (ADVIL,MOTRIN) 200 mg, Daily levothyroxine (SYNTHROID, LEVOTHROID) 75 mcg tablet Take 1 tab Friday through Friday, skip Friday. losartan (COZAAR) 50 mg, oral, Daily ondansetron (ZOFRAN) 4 mg tablet 1 tablet, Every 6 hours PRN simvastatin (ZOCOR) 10 mg, oral, Nightly IMAGING/LABORATORY: None WANDA Vogel ADULT [facility] [address] documented in this encounter Plan of Treatment Upcoming Encounters Date Type Department Care Team (Late st Contact Info) Description 07/05/2024 9:00 AM EDT Office Visit [address] [phone] Tyler Padilla PA [address] [place] [address] 01/21/2025 4:30 PM EST Appointment Radiology Department - [address] [phone] documented as of this encounter Visit Diagnoses Diagnosis Hypothyroidism (acquired)- Primary Unspecified hypothyroidism Hypertension, unspecified type Hepatic steatosis Other chronic nonalcoholic liver disease Encounter for screening mammogram for breast cancer documented in this encounter Discontinued Medications Medication Sig Discontinue Reason Start Date End Da te losartan (Cozaar) 25 mg tablet Take 1 tablet (25 mg total) by mouth 1 (one) time each day. 05/04/2024 05/04/2024 documented as of this encounter Orders Lab Orders Without Results Count Last Ordered D ate First Ordered Date BASIC METABOLIC PANEL 1 05/04/2024 documented in this encounter Care Teams First Front Ventilator Relationship Specialty Start Date End Date Shady Stevens MD [address] [place] [address] PCP - General Internal Medicine 01/15/21 documented as of this encounter
--- OUTSIDE RECORDS SUMMARY | 2024-05-14 17:41 | XMS_ITS | Clinical Summary ---
Author Organization [employer] Address [address] [facility] [place] [address] Care Team Providers Care Drop Shipment Clerk Name Role Phone Pcp, No Primary Care Provider [phone] Allergies Active Allergy Reactions Criticality Noted Date Comments Prochlorperazine 11/24/2022 Medications spironolactone (ALDACTONE) 25 MG tablet 09/28/2022 Active simvastatin (ZOCOR) 10 MG tablet 09/28/2022 Active levothyroxine (SYNTHROID) 75 MCG tablet 09/22/2022 Active azelastine (ASTELIN) 137 mcg (0.1 %) nasal spray 09/06/2022 Active Humira,CF, Pen 40 mg/0.4 mL kit 10/10/2022 Activ e Social History Tobacco Use Types Packs/Day Years Used Date Smoking Tobacco: Never Passive Smoke Exposure: Never Smokeless Tobacco: Never Comments Unknown Sex and Gender Information Value Date Recorded Sex Assigned at Not on file Legal Sex Female 4:12 PM EDT Gender Identity Not on file Sexual Orientation Not on file Last Filed Vital Signs Vital Sign Reading Time Taken Comments Blood Pressure - - Pulse 72 11/24/2022 9:19 AM EDT Temperature 36.3 ??C (97.4 ??F) 11/24/2022 9:19 AM ED T Respiratory Rate 20 11/24/2022 9:19 AM EDT Oxygen Saturation 98% 11/24/2022 9:19 AM EDT Inhaled Oxygen Concentration - - Weight - - Height - - Body Mass Index - - Plan of Treatment Health Maintenance Due Date Last Done Comments Colorectal Cancer: COLONOSCO PY Screening every 10 yrs (or Modifier) 1950 Depression: Screening Annual ly using PHQ-2/9 in Adults 18 yrs or above (or HM Modifier)([facility]) 1969 Hepatitis C Virus Infection in Adolescents and Adults: Screening (or Modifier) ([facility]) 1969 SDOH Screening Reminder: Teresa orozco for all adults ([facility]) 1969 Tobacco Smoking Cessation: i n Adults excluding Women: Behavioral and Pharmacotherapy Interventions ([facility]) 1969 DTaP/Tdap/Td Vaccines ([facility]) (1 - Tdap) 1970 Colorectal Cancer Screening 45 -75 Yrs (or HM Modifier) 1996 Colorectal Cancer: FLEXIBLE SIGMOIDOSCOPY Screening every 5 yrs 1996 Colorectal Cancer: Fecal Imm unochemical Test (FIT) Annually [facility] 1996 Colorectal Cancer: High-sens itivity gFOBT Screening Annually [facility] 1996 Colorectal Cancer: Stool Col oguard Screening every 3 yrs 1996 Colorectal Cancer:CT Colonog yves Screening every 5 yrs 1996 Lipid Screening: Every 5 yrs for Women aged 45+ (or HM Modifier) ([facility]) 1997 Breast Cancer: Screening Teresa orozco age 50-74 yrs (or HM Modifier)([facility]) 2001 Zoster/Shingles Vaccine Seri es Screening: Adults aged 18+ yrs (or HM Modifiers)([facility]) (1 of 2) 2001 Osteoporosis Screening to Pr event Fractures: Women aged 65 years+ ([facility]) 2016 Pneumococcal Vaccination Scr eening: Patients 65+ yrs of age ([facility]) (1 of 1 - PCV) 2016 Flu Vaccination: Ages 65+: Y early High Dose Recommended (or Modifier)([facility]) 10/16/2023 COVID-19 Vaccine Screening: Initial Series and Booster Status ([facility]) (3 - 2023- season) 2023 06/16/2020, 05/26/2020 RSV Vaccines (1 - 1-dose 75+ series) 2026 Medical Devices Not on file Insurance MEDICARE Care Teams Drop Shipment Clerk Relationship Specialty Start Date End Date Pcp, No PCP - General Family Medicine 11/24/22
--- OUTSIDE RECORDS SUMMARY | 2024-05-14 17:41 | XMS_ITS | Encounter Summary ---
Author Organization [facility] Address [address] [place] [address] Care Team Providers Care Syrup Maker Cook Name Role Phone Shady Stevens MD Primary Care Provider [phone] Reason for Referral * Imaging (Routine) - Closed Specialty Diagnoses / Procedures Referred By Kaden huddleston Referred To Contact Radiology Diagnoses Fatty liver Procedures US Abdomen Limited Kyler Palma PA [address] [address] Phone: tel: fax: [facility] Referral ID Status Reason Start Date Expiration Date Visits Re quested Visits Authorized [id number] Closed 05/04/2024 05/04/2025 1 1 Encounter Details Date Type Department Care Team (Late st Contact Info) Description 05/04/2024 Telephone Gastroenterology - [place] [address] [place] [address] [facility] [address] [place] [id number] Kyler Palma PA [address] [facility] [address] [place] [address] Social History Tobacco Use Types Packs/Day Years [...] PM EST documented as of this encounter Progress Notes * WANDA Zaragoza - 05/04/2024 7:49 AM EST Fatty liver and needs labs and ultrasound fasting documented in this encounter Plan of Treatment Upcoming Encounters Date Type Department Care Team (Late st Contact Info) Description 07/05/2024 9:00 AM EDT Office Visit Adult Medicine [place] - [address] [phone] Tyler Padilla PA [address] [place] [address] 01/21/2025 4:30 PM EST Appointment Radiology Department - [address] [phone] documented as of this encounter Results * (ABNORMAL) Lipid panel with reflex to direct LDL (05/10/2024 8:37 AM EST) Cholesterol 217(H) 0 - 200 mg/dL LAB CHEMISTRY METHOD 05/10/2024 1:40 PM EST [facility] Triglycerides 123 0 - 150 mg/dL LAB CHEMISTRY METHOD 05/10/2024 1:40 PM EST [facility] HDL 96 >=40 mg/dL LAB CHEMISTRY METHOD 05/10/2024 1:40 PM EST [facility] LDL Calculated 96 0 - 100 mg/dL LAB CHEMISTRY METHOD 05/10/2024 1:40 PM EST [facility] VLDL Cholesterol Twan 24.6 mg/dL LAB CHEMISTRY METHOD 05/10/2024 1:40 PM EST [facility] Non HDL Chol. (LDL+VLDL) 121 <145 mg/dL LAB CHEMISTRY METHOD 05/10/2024 1:40 PM [facility] Chol/HDL Ratio 2.3 0.0 - 4.4 LAB CHEMISTRY METHOD 05/10/2024 1:40 PM [facility] Blood Venous blood specimen / Unknown Venipuncture / Unknown 05/10/2024 8:37 AM EST 05/10/2024 8:37 AM EST us Kyler MUÑOZ LAB BLOOD ORDERABLES Final Resu lt [facility] [address] [place] [address], [place] [phone] * Comprehensive metabolic panel (05/10/2024 8:37 AM EST) Sodium 143 133 - 145 mmol/L LAB CHEMISTRY METHOD 05/10/2024 1:33 PM [facility] Potassium 4.1 3.5 - 5.5 mmol/L LAB CHEMISTRY METHOD 05/10/2024 1:33 PM [facility] Chloride 110 96 - 110 mmol/L LAB CHEMISTRY METHOD 05/10/2024 1:33 PM [facility] CO2 26 21 - 32 mmol/L LAB CHEMISTRY METHOD 05/10/2024 1:33 PM [facility] Anion Gap 7 3 - 11 LAB CHEMISTRY METHOD 05/10/2024 1:33 PM [facility] Glucose 97 70 - 100 mg/dL LAB CHEMISTRY METHOD 05/10/2024 1:33 PM [facility] BUN 14 5 - 25 mg/dL LAB CHEMISTRY METHOD 05/10/2024 1:33 PM [facility] Creatinine 0.62 0.50 - 1.10 mg/dL LAB CHEMISTRY METHOD 05/10/2024 1:33 PM [facility] eGFR 94 >=60 mL/min/1. 73m2 LAB CHEMISTRY METHOD 05/10/2024 1:33 PM [facility] Comment:Calculation based on the??Chronic Kidney Disease Epidemiology Collaboration (CKD-EPI) equation refit??without adjustment for race. BUN/Creatinine Ratio 22.6 LAB CHEMISTRY METHOD 05/10/2024 1:33 PM [facility] Calcium 9.9 8.5 - 10.5 mg/dL LAB CHEMISTRY METHOD 05/10/2024 1:33 PM [facility] AST (SGOT) 25 10 - 42 unit/L LAB CHEMISTRY METHOD 05/10/2024 1:33 PM [facility] ALT (SGPT) 41 10 - 60 unit/L LAB CHEMISTRY METHOD 05/10/2024 1:33 PM [facility] Alkaline Phosphatase 88 42 - 121 unit/L LAB CHEMISTRY METHOD 05/10/2024 1:33 PM [facility] Total Protein 7.3 6.0 - 8.0 g/dL LAB CHEMISTRY METHOD 05/10/2024 1:33 PM [facility] Albumin 3.9 3.2 - 5.0 g/dL LAB CHEMISTRY METHOD 05/10/2024 1:33 PM [facility] Total Bilirubin 1.1 0.0 - 1.4 mg/dL LAB CHEMISTRY METHOD 05/10/2024 1:33 PM [facility] Blood Venous blood specimen / Unknown Venipuncture / Unknown 05/10/2024 8:37 AM EST 05/10/2024 8:37 AM EST us Kyler MUÑOZ LAB BLOOD ORDERABLES Final Resu lt [facility] [address] [place] [address], [place] [phone] * US Abdomen Limited (05/10/2024 8:20 AM [...] Signed Date: 05/10/2024 11:22 ET Workstation ID: [id number] Transcribed By: Self Edit Transcribed Date: 05/10/2024 [...] Signed Date: 05/10/2024 11:22 ET Workstation ID: [id number] Transcribed By: Self Edit Transcribed Date: 05/10/2024 11:20 ET us Kyler MUÑOZ IMG US PROCEDURES Final Result documented in this encounter Visit Diagnoses Diagnosis Fatty liver- Primary Other chronic nonalcoholic liver disease Fatty liver Other chronic nonalcoholic liver disease Encounter for screening mammogram for breast cancer documented in this encounter Care Teams Syrup Maker Cook Relationship Specialty Start Date End Date Shady Stevens MD [address] [place] [address] PCP - General Internal Medicine 01/15/21 documented as of this encounter
[2024-05-17 08:43] LABS: TS Negative Control Passed; TS Panel A 0; TS Panel B 0; TS Positive Control Passed; TSpotTB Negative (Negative)
[2024-05-17 09:02] LABS: HBS Num1 15.26 mIU/mL (0-7.99); HBc Num1 0.06 S/CO (0.00-0.79); HBsAGNum1 0.39 S/CO (0.00-0.99); Hepatitis A Antibody IgM 0.17 Index (0-0.79); Hepatitis B Core Antibody Nonreactive (Nonreactive); Hepatitis B Surface Antigen Negative (Negative); ~HepC Num1 0.14 S/CO (0.00-0.79); ~Hepatitis A Antibody IgM Nonreactive (Nonreactive); ~Hepatitis B Surface Antibody REACTIVE (Nonreactive); ~Hepatitis C Antibody Nonreactive (Nonreactive)
== END 2024-05-14 15:38 | disposition home or self-care (01) ==
LOC: HO.LAB 15:37
PROVIDERS: Visit Provider Student in an Organized Health Care Education/Training Program
DX: Z13.89 Encounter for screening for other disorder (principal)
CPT/HCPCS: 36415; 80053; 85025; 85652; 86140; 86481; 86704; 86706; 86709; 86803; 87340

== ENCOUNTER 2024-07-20 07:55 | Outpatient (AMB) | payer MEDICARE, OTHER, SELFPAY ==
--- OUTSIDE RECORDS SUMMARY | 2024-07-20 07:57 | XMS_ITS | Clinical Summary ---
Author Organization [employer] Address [address] [facility] [place] [address] Care Team Providers Care Expanded Function Dental Assistant Name Role Phone Pcp, No Primary Care Provider [phone] Allergies Active Allergy Reactions Criticality Noted Date [...] Adults 18 yrs or above (or HM Modifier)([facility]) 1969 Hepatitis C Virus Infection in Adolescents and Adults: Screening (or Modifier) ([facility]) 1969 SDOH Screening Reminder: Teresa orozco for all adults ([facility]) 1969 Tobacco Smoking Cessation: i n Adults excluding Women: Behavioral and Pharmacotherapy Interventions ([facility]) 1969 DTaP/Tdap/Td Vaccines ([facility]) (1 - Tdap) 1970 Colorectal Cancer Screening 45 -75 Yrs (or HM Modifier) 1996 Colorectal Cancer: FLEXIBLE SIGMOIDOSCOPY Screening every 5 yrs 1996 Colorectal Cancer: Fecal Imm unochemical Test (FIT) Annually [facility] 1996 Colorectal Cancer: High-sens itivity gFOBT Screening Annually [facility] 1996 Colorectal Cancer: Stool Col oguard Screening every 3 yrs 1996 Colorectal Cancer:CT Colonog yves Screening every 5 yrs 1996 Lipid Screening: Every 5 yrs for Women aged 45+ (or HM Modifier) ([facility]) 1997 Breast Cancer: Screening Teresa orozco age 50-74 yrs (or HM Modifier)([facility]) 2001 Pneumococcal Vaccination Scr eening: Patients 50+ yrs of age ([facility]) (1 of 1 - PCV) 2001 Zoster/Shingles Vaccine Seri es Screening: Adults aged 18+ yrs (or HM Modifiers)([facility]) (1 of 2) 2001 Osteoporosis Screening to Pr event Fractures: Women aged 65 years+ ([facility]) 2016 COVID-19 Vaccine Screening: Initial Series and Booster Status ([facility]) ( - 2023- season) 2023 06/16/2020, 05/26/2020 Flu Vaccination: Ages 65+: Y early High Dose Recommended (or Modifier)([facility]) 10/15/2024 RSV Vaccines (1 - 1-dose 75+ series) 2026 [employer] Devices Not on file Insurance MEDICARE Care Teams Expanded Function Dental Assistant Relationship Specialty Start Date End Date Pcp, No PCP - General Family Medicine 11/24/22
--- OUTSIDE RECORDS SUMMARY | 2024-07-20 07:57 | XMS_ITS | Clinical Summary ---
Author Organization [facility] [address] [facility] Address [address] [place] [address] Phone Care Team Providers Care Md Psychiatry Name Role Phone Shady Stevens MD Primary Care Provider Allergies Active Allergy Reactions Criticality Noted Date Comments Mold 01/14/2023 Prochlorperazine 02/05/2005 Medications JajaCF, Pen 40 mg/0.4 mL pen 40 mg by Subconjunctival route every 14 days. 02/17/20 21 Active azelastine (ASTELIN) 137 mcg (0.1 %) nasal spray 1 (one) time each day. 11/27/19 22 Active cholecalcifero l (VITAMIN D-3) 50 mcg (2,000 unit) tablet Take by mouth 1 (one) time each day. Active ondansetron (ZOFRAN) 4 mg tablet Take 1 tablet (4 mg total) by mouth every 6 (six) hours if needed. 07/08/19 24 Active acetaminophen (TYLENOL) 500 mg tablet Take 1 tablet (500 mg total) by mouth 1 (one) time each day. Active ibuprofen (ADVIL,MOTRIN) 200 mg tablet Take 1 tablet (200 mg total) by mouth 1 (one) time each day. Active simvastatin (ZOCOR) 10 mg tablet Take 1 tablet (10 mg total) by mouth at bedtime. 90 tablet 1 04/01/19 25 Active losartan (COZAAR) 50 mg tablet Take 1 tablet (50 mg total) by mouth 1 (one) time each day. 90 tablet 3 05/04/19 25 Active levothyroxine (SYNTHROID, LEVOTHROID) 75 mcg tablet Take 1 tab Friday through Friday, skip Friday. 90 tablet 1 06/08/19 25 Active albuterol HFA (PROAIR HFA ; PROVENTIL HFA ; VENTOLIN HFA) 90 mcg/actuation inhaler Inhale 2 puffs by mouth every 6 (six) hours if needed for wheezing. 6.7 g 2 07/06/19 25 Active albuterol HFA (PROAIR HFA ; PROVENTIL HFA ; VENTOLIN HFA) 90 mcg/actuation inhaler Take 2 Puffs by mouth every 4 hours as needed for Cough or Wheezing. 06/07/19 23 025 Discontin ued(Reord er) Active Problems Problem Noted Date Diagnosed Date [...] (12/23/2023): DUE URI'S Psoriasis 04/09/2005 Psoriatic arthropathy ([facility] V24, [facility] V28) 02/05/2005 Overview (12/23/2023): Onset . Rx: methotrexate [...] Encounters Date Type Department Care Team Description 07/05/2024 9:00 AM EDT Office Visit Adult Medicine [address] [phone] Tyler Padilla PA Pure hypercholesterolemia (Primary Dx); Hepatic steatosis; Hypertension, unspecified type; Hypothyroidism (acquired) 05/10/2024 8:05 AM EST - 05/10/2024 11:59 PM EST Hospital Encounter Radiology Department - [address] [phone] Fatty liver Discharge Disposition: Home or Self Care 05/04/2024 9:00 AM EST Office Visit [address] [phone] Tyler Padilla PA Hypothyroidism (acquired) (Primary Dx); Hypertension, unspecified type; Hepatic steatosis 05/04/2024 Telephone Gastroenterology - [place] [address] [place] [address] Kyler Palma PA from Last 3 Months Immunizations Name Administration Dates Next Due H1N1 Inj Preservative Free 01/25/2009 Influenza trivalent, 0.5mL ( Fluzone High-dose) 65yo and older 12/20/2022,11/30/2021,01/15/2021,12/05,12/24/2018,04/04/2018,12/23/2016 Influenza trivalent, with pr eservative (Fluzone; Afluria) 6mo and older 01/18/2016,01/12/2015,01/11/2014,01/25,01/03/2012,12/21/2010,01/19/2010 ,12/23/2007,01/09/2007,02/26/2006,12/15 PPD Test 01/25/2009 [employer] Covid-19 Bivalent, Or iginal + Ba.1 (Non-US Trademark COMIRNATY Bivalent) 03/15/2022 [employer] SARS-CoV-2 COVID-19, mRNA, LNP-S, preservative free 06/16/2020,05/26/2020 Pneumococcal conjugate 13 va lent (Prevnar 13, PCV13) 2mo and older 07/18/2016 Pneumococcal polysaccharide 23 valent (Pneumovax 23) 2yo and older 05/06/2018,01/25/2013,01/04/2002 Tdap Tetanus diptheria acell ular pertussis (Boostrix; Adacel) 7yo and older 07/05/2024,12/01/2012 Zoster recombinant (Shingrix ) 19yo and older 11/12/2019,04/24/2019 Surgical History Surgery Date Site/Laterality Comments APPENDECTOMY PROCEDURE: OH APPENDECTOMY OTHER SURGICAL HISTORY PROCEDURE: OH ARTHRS TEMPOROMANDIBULR JT DX W/WO SYNVAL BX SPX; COMMENT: 1989 OTHER SURGICAL HISTORY PROCEDURE: OH BIOPSY THYROID PERCUTANEOUS CORE NEEDLE; COMMENT: 2004 OTHER SURGICAL HISTORY PROCEDURE: OH RADIAL KERATOTOMY; COMMENT: bilateral MULTIPLE TOOTH EXTRACTIONS PROCEDURE: HISTORICAL DENTAL EXTRACTION FEMUR FRACTURE SURGERY 03/2014 Right PROCEDURE: OH OPEN TX FEMORAL FRACTURE DISTAL MED/LAT CONDYLE; COMMENT: Dr. De Santiago OTHER SURGICAL HISTORY 06/2015 Left PROCEDURE: OH ARTHRS KNEE DRLG OSTEOCHOND DISSECANS INT FIXJ; COMMENT: meniscal repair BREAST BIOPSY ih Left PROCEDURE: BX BREAST; PERC NEEDLE CORE W/IMAG GUID; COMMENT: lt bx BREAST SURGERY 1970ish Left PROCEDURE: OH UNLISTED PROCEDURE BREAST; COMMENT: lt cyst removal 26 yrs old OTHER SURGICAL HISTORY Right PROCEDURE: OH ARTHRP ACETBLR/PROX FEM PROSTC AGRFT/ALGRFT COLONOSCOPY 03/14/2008 PROCEDURE: HISTORICAL COLONOSCOPY; COMMENT: Up to cecum, good preparation, small polyp removed:Hyperplastic, anal skin tag, otherwise normal COLONOSCOPY 02/04/2019 PROCEDURE: HISTORICAL COLONOSCOPY; COMMENT: 3 mm polyps x 2: both hyperplastic. Medical History Medical History Date Comments Pure hypercholesterolemia 01/09/2007 DX:Pur e hypercholesterolemia Psoriatic arthropathy (CMS/H CC V24, [facility] V28) 02/05/2005 DX:Psoriatic arthropathy (HC C); COMMENT: On methotrexate and Enbrel Humeral fracture 10/04/2011 DX:Humeral frac ture Fracture of neck of femur (C [place]/HCC V24, [facility] V28) 04/14/2014 DX:Fracture of neck of femur (HCC); COMMENT: 2014 Hypertension 04/23/2018 DX:Hypertension Asthma, mild [...] Sign Reading Time Taken Comments Blood Pressure 144/74 07/05/2024 8:50 AM EDT provider to recheck bp Pulse 90 07/05/2024 8:50 AM EDT Temperature 36.3 ??C (97.3 ??F) 07/05/2024 8 :50 AM EDT Respiratory Rate 14 07/05/2024 8:50 AM EDT Oxygen Saturation 98% 07/05/2024 8:5 0 AM EDT Inhaled Oxygen Concentration - - Weight 64 kg (141 lb) 07/05/2024 8:50 AM EDT Height 167.6 cm (5' 6 ) 07/05/2024 8:50 AM EDT Body Mass Index 22.76 07/05/2024 8:50 AM EDT Plan of Treatment Upcoming Encounters Date Type Department Care Team (Late st Contact Info) Description 01/21/2025 4:30 PM EST Appointment Radiology Department [address] [phone] Health Maintenance Due Date Last Done Comments Hepatitis A Vaccines (1 of 2 - Risk 2-dose series) 1970 Hepatitis B Vaccines (1 of 3 - Risk 3-dose series) 2011 Social Influencers of Health Screening 02/23/2022 COVID-19 Vaccine (7 - Pfizer risk 2023- season) 2024 01/14/2024, 03/28/2023, 11/02/2021, Additional history exists Depression Screening 10/01/2024 10/02/2023 Falls Risk Assessment 10/01/2024 10/02/2023 Medicare Annual Wellness Visit 10/01/2024 10/02/2023 Hypertension/CHF/CAD Annual BMP Blood Test 05/10/2025 05/10/2024, 04/05/2024, 02/02/2024, Additional history exists Breast Cancer Screening 12/31/2025 01/01/20, 01/01/2024, 12/27/2022, Additional history exists Colorectal Cancer Screening: Colonoscopy 02/04/2029 02/04/2019 Cholesterol Screening (Lipid Panel) 05/10/2029 05/10/2024, 02/02/2024, 09/11/2023, Additional history exists Osteoporosis Screening (Bone Density Screening) 04/05/2034 04/05/2024, 08/22/2021, 02/18/2019 DTaP,Tdap,and Td Vaccines (3 - Td or Tdap) 07/05/2034 07/05/2024, 12/01/2012 Pneumococcal Vaccine: 50+ Years Completed 05/06/2018, 07/18/2016, 01/25/2013, Additional history exists Hepatitis C Screening Completed 12/26/2018 Zoster Vaccines Completed 11/12/2019, 04/24/2019 RSV Immunization Adult Patients Completed 03/28/2023 Influenza Vaccine Completed 01/14/2024, , 11/30/2021, Additional [...] age to complete this topic Meningococcal B Vaccine Aged Out No l onger eligible based on patient's age to complete [...] Routine 05/10/2024 8:37 AM EST Fatty liver LIVER FIBROSIS, FIBROTEST-ACTITEST PANEL Routine 05/10/2024 8:37 AM EST Fatty liver US ABDOMEN LIMITED Routine 05/10/2024 8: 20 AM EST Fatty liver BD BONE DENSITY DXA AXIAL SKELETON Routine [...] mg/dL LAB CHEMISTRY METHOD 05/10/2024 1:[address] [facility] Triglycerides 123 0 - 150 mg/dL LAB CHEMISTRY METHOD 05/10/2024 1:40 PM EST [facility] HDL 96 >=40 mg/dL LAB CHEMISTRY METHOD 05/10/2024 1:[address] [facility] LDL Calculated 96 0 - 100 mg/dL LAB CHEMISTRY METHOD 05/10/2024 1:[address] [facility] VLDL Cholesterol Twan 24.6 mg/dL LAB CHEMISTRY METHOD 05/10/2024 1:[address] [facility] Non HDL Chol. (LDL+VLDL) 121 <145 mg/dL LAB CHEMISTRY METHOD 05/10/2024 1:[address] [facility] Chol/HDL Ratio 2.3 0.0 - 4.4 LAB CHEMISTRY METHOD 05/10/2024 1:[address] [facility] Blood Venous blood specimen / Unknown Venipuncture / Unknown 05/10/2024 8:37 AM EST 05/10/2024 8:37 AM EST Kyler MUÑOZ LAB BLOOD ORDERABLES Final [facility]u lt [facility] [address] [place] [address], * (ABNORMAL) Liver fibrosis, fibrotest-actitest panel (05/10/2024 8:37 AM EST) Fibrosis Score 0.10 05/14/2024 10:38 PM EST [facility] Fibrosis Stage F0 05/14/2024 10:38 PM EST [facility] Fibrosis Interpretation SEE NOTE 05/14/2024 10:38 PM EST [facility] Comment: no fibrosis Fibro Test Score (f) ??Metavir Score ??f>=0 and f<=0.21 : F0 (no fibrosis) f>0.21 and f<=0.27 : F0-F1 (no fibrosis) f>0.27 and f<=0.31 : F1 (minimal fibrosis) f>0.31 and f<=0.48 : F1-F2 (minimal fibrosis) f>0.48 and f<=0.58 : F2 (moderate fibrosis) f>0.58 and f<=0.72 : F3 (advanced fibrosis) f>0.72 and f<=0.74 : F3-F4 (advanced fibrosis) f>0.74 and f<=1.00 : F4 (severe fibrosis) Necroinflammat Activity Score 0.08 05/14/2024 10:38 PM EST [facility] Necroinflammat Activity Grade A0 05/14/2024 10:38 PM EST [facility] Necroinflammat Interpretation SEE NOTE 05/14/2024 10:38 PM EST [facility] Comment: no activity ActiTest Score (a) ?Metavir Score ??a>=0 and a<=0.17 : A0 (no activity) a>0.17 and a<=0.29 : A0-A1 (no activity) a>0.29 and a<=0.36 : A1 (minimal activity) a>0.36 and a<=0.52 : A1-A2 (minimal activity) a>0.52 and a<=0.60 : A2 (significant activity) a>0.60 and a<=0.62 : A2-A3 (significant activity) a>0.62 and a<=1.00 : A3 (severe activity) Bilirubin Total 0.6 0.2 - 1.2 mg/dL 05/14/2024 10:38 PM EST [facility] Gamma Glutamyl Transferase (GGT) 12 3 - 65 U/L 05/14/2024 10:38 PM EST [facility] Alanine Aminotransferase (ALT) 25 6 - 29 U/L 05/14/2024 10:38 PM EST [facility] Yiqmf-5-Ozsanvjfgutm n 173 106 - 279 mg/dL 05/14/2024 10:38 PM EST [facility] Haptoglobin 82 43 - 212 mg/dL 05/14/2024 10:38 PM EST [facility] Apolipoprotein A1 236(H) 101 - 198 mg/dL 05/14/2024 10:38 PM EST [facility] Reference ID [id number] 05/14/2024 10:38 PM EST [facility] Footnote SEE NOTE 05/14/2024 10:38 PM EST [facility] Comment: The reliability of results is dependent on compliance with the preanalytical and analytical conditions recommended by [employer]. The tests have to be deferred for: acute hemolysis, acute hepatitis, acute inflammation, extra hepatic cholestasis. The advice of a specialist should be sought for interpretation in chronic hemolysis and Gilbert's syndrome. The test interpretation is not validated in liver transplant patients. Isolated extreme values of one of the components should lead to caution in interpreting the results. In case of discordance between a biopsy result and a test, it is recommended to seek the advice of a specialist. The causes of these discordances could be due to a flaw of the test or to a flaw in the biopsy: i.e. a liver biopsy has a 33% variability rate for one fibrosis stage. FibroTest is interpretable for chronic hepatitis B and C, alcoholic and non alcoholic steatosis. ActiTest is interpretable for chronic hepatitis B and C. The performance characteristics have been determined by [employer]. It has not been cleared or approved by the U.S. Food and Drug Administration. Performance characteristics refer to the analytical performance of the test. [employer], the associated logo, [employer] and all associated [employer] are the registered trademarks of [employer]. All third constitution party magaña - (R) and (TM) - are the property of their respective owners. (C) 8720-7396 [employer]. All rights reserved. Test Performed at: [employer] [place] [address] [place], [place] ??[address] ? I Louie LIRA, PhD, IZABELLA Blood Venous blood specimen / Unknown Venipuncture / Unknown 05/10/2024 8:37 AM EST 05/10/2024 8:37 AM EST us Kyler MUÑOZ LAB BLOOD ORDERABLES Final Resu lt [facility] [address] [place] [address] * (ABNORMAL) CBC auto differential (05/10/2024 8:37 AM EST) WBC 6.6 4.8 - 10.8 K/mcL LAB HEMETOLOGY METHOD 05/10/2024 10:[address] [facility] RBC 4.20 3.80 - 4.80 M/mcL LAB HEMETOLOGY METHOD 05/10/2024 10:[address] [facility] Hemoglobin 12.6 11.5 - 16.0 g/dL LAB HEMETOLOGY METHOD 05/10/2024 10:[address] [facility] Hematocrit 40.1 35.0 - 47.0 % LAB HEMETOLOGY METHOD 05/10/2024 10:[address] [facility] MCV 95.7 79.0 - 98.0 FL LAB HEMETOLOGY METHOD 05/10/2024 10:[address] [facility] MCH 30.1 27.0 - 32.0 pcg LAB HEMETOLOGY METHOD 05/10/2024 10:[address] [facility] MCHC 31.4(L) 32.0 - 37.0 g/dL LAB HEMETOLOGY METHOD 05/10/2024 10:[address] [facility] RDW 12.5 11.0 - 15.0 % LAB HEMETOLOGY METHOD 05/10/2024 10:[address] [facility] Platelets 284 130 - 400 K/mcL LAB HEMETOLOGY METHOD 05/10/2024 10:[address] [facility] MPV 10.2 7.0 - 11.0 FL LAB HEMETOLOGY METHOD 05/10/2024 10:[address] [facility] NRBC 0.0 <1.0 % LAB HEMETOLOGY METHOD 05/10/2024 10:[address] [facility] NRBC Absolute 0.00 <0.10 K/mcL LAB HEMETOLOGY METHOD 05/10/2024 10:[address] [facility] Neutrophils Relative 36.2 % LAB HEMETOLOGY METHOD 05/10/2024 10:[address] [facility] Lymphocytes Relative 51.7 % LAB HEMETOLOGY METHOD 05/10/2024 10:[address] [facility] Monocytes Relative 7.4 % LAB HEMETOLOGY METHOD 05/10/2024 10:[address] [facility] Eosinophils Relative 3.6 % LAB HEMETOLOGY METHOD 05/10/2024 10:[address] [facility] Basophils Relative 0.9 % LAB HEMETOLOGY METHOD 05/10/2024 10:[address] [facility] Immature Granulocytes Relative 0.2 % LAB HEMETOLOGY METHOD 05/10/2024 10:[address] [facility] Neutrophils Absolute 2.40 1.50 - 7.00 K/mcL LAB HEMETOLOGY METHOD 05/10/2024 10:[address] [facility] Lymphocytes Absolute 3.43 1.00 - 5.00 K/mcL LAB HEMETOLOGY METHOD 05/10/2024 10:[address] [facility] Monocytes Absolute 0.49 0.20 - 1.00 K/mcL LAB HEMETOLOGY METHOD 05/10/2024 10:03 AM EST [facility] Eosinophils Absolute 0.24 0.00 - 0.50 K/[facility] LAB HEMETOLOGY METHOD 05/10/2024 10:[address] [facility] Basophils Absolute 0.06 0.00 - 0.20 K/[facility] HEMETOLOGY METHOD 05/10/2024 10:03 AM EST [facility] Immature Granulocytes Absolute 0.01 0.00 - 0.03 K/[facility] HEMETOLOGY METHOD 05/10/2024 10:[address] [facility] Blood Venous blood specimen / Unknown Venipuncture / Unknown 05/10/2024 8:37 AM EST 05/10/2024 8:37 AM EST Kyler MUÑOZ LAB BLOOD ORDERABLES Final Resu lt [facility] [address] [place] [address], * Comprehensive metabolic panel (05/10/2024 8:37 AM EST) Sodium 143 133 - 145 mmol/L LAB CHEMISTRY METHOD 05/10/2024 1:[address] [facility] Potassium 4.1 3.5 - 5.5 mmol/L LAB CHEMISTRY METHOD 05/10/2024 1:[address] [facility] Chloride 110 96 - 110 mmol/L LAB CHEMISTRY METHOD 05/10/2024 1:[address] [facility] CO2 26 21 - 32 mmol/L LAB CHEMISTRY METHOD 05/10/2024 1:[address] [facility] Anion Gap 7 3 - 11 LAB CHEMISTRY METHOD 05/10/2024 1:[address] [facility] Glucose 97 70 - 100 mg/dL LAB CHEMISTRY METHOD 05/10/2024 1:[address] [facility] BUN 14 5 - 25 mg/dL LAB CHEMISTRY METHOD 05/10/2024 1:[address] [facility] Creatinine 0.62 0.50 - 1.10 mg/dL LAB CHEMISTRY METHOD 05/10/2024 1:[address] [facility] eGFR 94 >=60 mL/min/1. 73m2 LAB CHEMISTRY METHOD 05/10/2024 1:[address] [facility] Comment:Calculation based on the??Chronic Kidney Disease Epidemiology Collaboration (CKD-EPI) equation refit??without adjustment for race. BUN/Creatinine Ratio 22.6 LAB CHEMISTRY METHOD 05/10/2024 1:[address] [facility] Calcium 9.9 8.5 - 10.5 mg/dL LAB CHEMISTRY METHOD 05/10/2024 1:[address] [facility] AST (SGOT) 25 10 - 42 unit/L LAB CHEMISTRY METHOD 05/10/2024 1:[address] [facility] ALT (SGPT) 41 10 - 60 unit/L LAB CHEMISTRY METHOD 05/10/2024 1:[address] [facility] Alkaline Phosphatase 88 42 - 121 unit/L LAB CHEMISTRY METHOD 05/10/2024 1:[address] [facility] Total Protein 7.3 6.0 - 8.0 g/dL LAB CHEMISTRY METHOD 05/10/2024 1:[address] [facility] Albumin 3.9 3.2 - 5.0 g/dL LAB CHEMISTRY METHOD 05/10/2024 1:[address] [facility] Total Bilirubin 1.1 0.0 - 1.4 mg/dL LAB CHEMISTRY METHOD 05/10/2024 1:[address] [facility] Blood Venous blood specimen / Unknown Venipuncture / Unknown 05/10/2024 8:37 AM EST 05/10/2024 8:37 AM EST us Kyler MUÑOZ LAB BLOOD ORDERABLES Final Resu lt [facility] [address] [place] [address], [place] [phone] * US Abdomen Limited (05/10/2024 8:20 AM [...] Signed Date: 05/10/2024 11:22 ET Workstation ID: [id number] Transcribed By: Self Edit Transcribed Date: 05/10/2024 [...] Signed Date: 05/10/2024 11:22 ET Workstation ID: [id number] Transcribed By: Self Edit Transcribed Date: 05/10/2024 11:20 ET us Kyler MUÑOZ IMG US PROCEDURES Final Result * BD Bone Density DXA Axial Skeleton (04/05/2024 2:13 PM EST) Anatomical Region Laterality Modality Wrist, Hip, L-spine Bone Densito metry 04/05/2024 2:41 PM EST Impressions 04/05/2024 2:44 PM EST Osteopenia by WHO criteria. The [facility] Department of Internal Medicine recommends using National [...] alternative screening schedule based on princess Izaguirre., [facility] April 04, 2011 for patients [...] Signed Date: 04/05/2024 14:44 ET Workstation ID: [id number] Transcribed By: Self Edit Transcribed Date: 04/05/2024 [...] elements. IMPRESSION: Osteopenia by WHO criteria. The [facility] Department of Internal Medicine recommendsusing National Osteoporosis [...] alternative screening schedule based on princess Izaguirre., [facility] for patients with osteopenia (based on hip [...] Signed Date: 04/05/2024 14:44 ET Workstation ID: [id number] Transcribed By: Self Edit Transcribed Date: 04/05/2024 14:41 ET us Tyler MUÑOZ IMG DXA PROCEDURES Final Result [...] category Breast cancer risk not assessed Location: [facility], [address] [place] [address], [id number], [phone] Procedure Note Hugo Laurent MD - 01/13/2024 [...] category Breast cancer risk not assessed Location: [facility], [address] [place] [address], [id number], [phone] Result [facility] Shady Stevens MD IMG XR PROCEDURES Final Result * Falls Risk Assessment (10/02/2023) [facility] Falls Risk Assessment abstracted Result [facility] Provider HEALTH MAINTENANCE Final Result * Depression Screening (10/02/2023) [facility] Depression Screening abstracted Result [facility] Provider HEALTH MAINTENANCE Final Result * Colonoscopy (02/04/2019) [facility] Colonoscopy abnormal, abstracted Anatomical Region Laterality Modality Other Result [facility] Ricki LIRA HEALTH MAINTENANCE Final Result * Hepatitis C Screening (12/26/2018) [facility] Hepatitis C Screening abstracted Result [facility] Provider HEALTH MAINTENANCE Final Result from Last 3 Months or Most Recently Relevant to Health Maintenance Insurance MEDICARE [facility] Care Teams Md Psychiatry Relationship Specialty Start Date End Date Shady Stevens MD [address] [place] [address] PCP - General Internal Medicine 01/15/21
--- NOTE | 2024-07-20 08:07 | MHC.OFFVIS ---
Vital Signs 07/20/24 08:14 Height 5 ft 6 in Weight 141 lb 15.643 oz BMI 22.9 BP 142/70 H Blood Pressure Location Lt brachial Position Sitting Respiration 16 Pulse 78 Pulse Source Pulse Oximeter Pulse Oximetry (%) 97 Oxygen Delivery Method Room Air Intake Visit Reasons: PsA Intake Note: Patient presents for PsA. Allergies prochlorperazine [From Compazine] Allergy (Severe, Verified 07/20/24 08:10) muscle spasms Medication List - Last Reconciled 07/20/24 by Jumana Rosenberg MD acetaminophen (Tylenol Extra Strength) 1,000 mg PO TID PRN adalimumab (Humira(CF) Pen) 40 mg (0.4 mL) subcut Q2W albuterol sulfate 90 mcg/actuation (ProAir HFA) 2 puffs inhalation Q6H PRN azelastine 2 sprays intranasal BID cholecalciferol (vitamin D3) 50 mcg PO DAILY diclofenac sodium 1% (Voltaren Arthritis Pain) 2 grams topical QID PRN levothyroxine 75 mcg PO DAILY losartan 25 mg PO DAILY ondansetron HCl 4 mg PO Q6H PRN simvastatin 10 mg PO BEDTIME HPI Comments Details: Patient is a 74-year-old female with asthma, hypertension, hyperlipidemia, hypothyroidism, generalized osteoarthritis, Osteoporosis (femur fracture 2014, tibial plateau fracture 2021), psoriasis complicated by psoriatic arthritis here today for follow up Interval History: Patient last seen 01/20/[address] Castellanos. At that time she was following up for her psoriasis and psoriatic arthritis on Humira 40 mg every other week. She was complaining of diffuse pain. There was no evidence of active psoriasis or psoriatic arthritis at that visit. Her polyarticular osteoarthritis was attributed to her whole-body pains Today, Her PsO and PsA is under control Complains of multiple joint pain Currently going to spine surgery for evaluation of lumbar stenosis and treatment Rheumatologic History: Onset . Rx: methotrexate - partial response, nausea. Enbrel added Mar 2003 with good response Humira in place of Enbrel because of fading response 12/2010 Methotrexate held at time of hip fracture 03/31 - not restarted as it was not needed Winter 2018 - Humira hled due to flu 10/02: Humira held due to thrush Humira held for keft knee surgery 12/2020(fracture) Restarted Humira 2020 Current Rheumatology Medication(s): Humira 40mg SC every 2 weeks [facility] Medical History (Updated 07/20/24 @ 08:34 by Jumana Rosenberg MD) DDD (degenerative disc disease), lumbosacral Osteopenia Osteoarthritis of knees, bilateral History of humerus fracture 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, 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 Hyperlipidemia Hypertension Hypothyroid Psoriasis Psoriatic arthritis Surgical History H/O right knee surgery History of total right hip arthroplasty Social History Household Members: Spouse Housing: Condominium Are you a primary lawn care professional to a significant other at home: No Do you presently have visiting nurse or other home services: No 75 years or older and lives alone: No Alcohol intake: never Patient Tobacco Use Status: Never used Tobacco service: No Current occupational status: retired Review of Systems Const Details: Review of Systems Constitutional: Denies fever, chills, weight loss ENT: Denies vision changes, eye pain or eye redness, dental caries, dry mouth GI: Denies nausea, vomiting, diarrhea, abdominal pain, change in BM Pulm: Denies SOB, RECIO, hemoptysis, wheezing Cards: Denies chest pain, palpitations Skin: Denies Raynaud's, rash, nail changes, photosensitivity, CLOTH HAND: Denies headaches, weakness, paresthesias, recurrent falls MSK: as per HPI All other systems reviewed and are unremarkable except noted above Physical Exam Vital Signs: Last Vital Signs Pulse 78 07/20/24 08:14 Resp 16 07/20/24 08:14 BP 142/70 H 07/20/24 08:14 Pulse Ox 97 07/20/24 08:14 Oxygen Delivery Method Room Air 07/20/24 08:14 BMI result Body Mass Index 22.9 Vital signs reviewed Physical Examination CONSTITUITIONAL Patient alert and cooperative. Well appearing and in no apparent painful distress HEENT Conjunctiva and sclera clear. ?Pupils equal round and reactive to light. ?No lymphadenopathy. ? CHEST/RESPIRATORY SYSTEM Normal respiratory effort and able to speak in complete sentences. ?Clear to auscultation bilaterally. ?No crackles, rales, rhonchi, wheezes heard. CARDIAC SYSTEM Regular rate and rhythm. ?S1 and S2 heard no murmurs. ?Radial pulses intact bilaterally MSK Hands: ?Able to make a fist. No synovitis noted to the MCPs, PIPs or DIPs. ?No tenderness to palpation of these joints. Herbeden's nodes Wrists: ?Full range of motion at the wrists without pain. ?No tenderness to palpation or synovitis noted to the wrists. Elbows: Full range of motion without pain. No tenderness, weakness, swelling, increased warmth or erythema. Shoulders: Full range of active range of motion without pain. No tenderness, weakness, swelling, increased warmth or erythema. Knees: ?Full range of motion. ?No tenderness, swelling, increased warmth or erythema.?Bilateral crepitations Ankles: Full range of motion. ?No tenderness, swelling, increased warmth or erythema.? Feet: ?Negative squeeze test. ?No tenderness to palpation or swelling of the MTPs. Tender points:?No tenderness to palpation of the bilateral trapezius, supraspinatus, greater trochanters, anterior costochondral junctions, bilateral gluteal areas, bilateral suboccipital muscle insertions SKIN Skin intact without rashes. Results Reviewed Results Reviewed: Laboratory Tests 05/14/24 16:10 WBC 7.8 RBC 3.95 L Hgb 12.3 Hct 36.4 L Plt Count 285 ESR 9 Sodium 142 Potassium 4.1 Chloride 109 H Carbon Dioxide 25 BUN 20 H Creatinine 0.68 AST 25 ALT 30 Alkaline Phosphatase 85 C-Reactive Protein < 0.10 Infectious serologies 05/14/24 16:10 Hepatitis A IgM Ab Nonreactive Hep Bs Antigen Negative Hep Bs Antibody REACTIVE Hep B Core Total Ab Nonreactive Hepatitis C Ab (EIA) Nonreactive TB Test (T-Spot) Com Negative Assessment & Plan Assessment & Plan (1) Psoriatic arthritis: Comment: Onset . Rx: methotrexate - partial response, nausea. Enbrel added Mar 2003 with good response Humira in place of Enbrel because of fading response 12/2010 Methotrexate held at time of hip fracture 03/31 - not restarted as it was not needed Winter 2018 - Humira hled due to flu 10/02: Humira held due to thrush Humira held for keft knee surgery 12/2020(fracture) Restarted Humira 2020 Code(s): L40.50 - Arthropathic psoriasis, unspecified Category: Medical Plan: #PsO/PsA Patient is a 74-year-old female with psoriasis complicated by psoriatic arthritis here today for follow up. Patient is currently in remission with no evidence of psoriatic plaques or active synovitis on examination Plan - Humira 40mg SC every other week - Labs today: CBC, CMP, ESR, CRP - RTC 4 months - Labs before visit: CBC, CMP, ESR, CRP (2) Osteopenia: Comment: 2019: AP Spine -1.6, Left femur neck, Left femur total -1.7 DEXA 08/2021 T scores: Hip -2.0; LS spine -1.8 11/05 declines bisphosphonate RX Code(s): M85.80 - Other specified disorders of bone density and structure, unspecified site Category: Medical Qualifiers: Osteopenia location: multiple sites Qualified Code(s): M85.89 - Other specified disorders of bone density and structure, multiple sites Plan: #Osteopenia Patient with osteopenia. 2021 bone density shows worsening of her osteopenia however declined bisphosphonate treatment Plan - Check Vit D - Get DEXA results from this year from [place] (3) Generalized osteoarthritis: Code(s): M15.9 - Polyosteoarthritis, unspecified Category: Medical Plan: #Polyarticular OA Currently controlling the pain with Tylenol and Aleve. 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 of immunosuppressive biologic Plan: #Long-term Use of TNF Inhibitors: Humira Discussed with the patient the benefits and risks of TNF inhibitors for the management of the rheumatic condition Benefits include reduce pain, maintenance of remission and reduction of flares as well as ?progression of the disease Risks include injection sites/infusion reactions, serious infections (such as bacterial infections, opportunistic infections), malignancy, delaminating syndromes, autoimmune phenomena, CHF exacerbations, palmar plantar psoriasis and cytopenias Recommended rotating injection sites, and holding medication during and for up to 1 week after resolution of a febrile illness or open skin wound Plan I spent 36 minutes reviewing the record and labs, taking a history, examining the patient, discussing the treatment plan, ordering diagnostic work up and documenting in the medical record Orders: Orders Complete Blood Count Auto Diff Today L40.50 - Arthropathic psoriasis, unspecified Comprehensive Met. Panel Today L40.50 - Arthropathic psoriasis, unspecified C Reactive Protein Today L40.50 - Arthropathic psoriasis, unspecified XR DEXA axial skeleton Today M81.0 - Age-related osteoporosis without current pathological fracture Complete Blood Count Auto Diff 4 Months L40.50 - Arthropathic psoriasis, unspecified C Reactive Protein 4 Months L40.50 - Arthropathic psoriasis, unspecified Erythrocyte Sedimentation Rate Today L40.50 - Arthropathic psoriasis, unspecified Comprehensive Met. Panel 4 Months L40.50 - Arthropathic psoriasis, unspecified Erythrocyte Sedimentation Rate 4 Months L40.50 - Arthropathic psoriasis, unspecified Medications: Refilled adalimumab (Humira(CF) Pen) 40 mg (0.4 mL) subcut Q2W 2 ea 4RF L40.50 - Arthropathic psoriasis, unspecified Coding Level of Care Code Est Pt Level 4 (19920) Complex EM visit Add On G2211 Diagnoses Psoriatic arthritis L40.50 Osteopenia of multiple sites M85.89 Osteopenia location: multiple sites Generalized osteoarthritis M15.9 Adalimumab (Humira) long-term use Z79.620
[2024-07-20 08:14] VITALS: BP 142/70; PULSE 78; RESP 16; O2SAT 97; BMI 22.9
== END 2024-07-20 08:57 | disposition home or self-care (01) ==
LOC: HO.RHE 07:55
PROVIDERS: PCP Internal Medicine; Visit Provider Student in an Organized Health Care Education/Training Program
DX: L40.50 Arthropathic psoriasis, unspecified (principal); M85.89 Other specified disorders of bone density and structure, multiple sites; M15.9 Polyosteoarthritis, unspecified; Z79.620 Long term (current) use of immunosuppressive biologic
CPT/HCPCS: 99214; G2211

== ENCOUNTER → 2024-07-20 07:55 | Outpatient (BNVA) | payer MEDICARE, OTHER, SELFPAY | PROVIDERS: PCP Internal Medicine; Visit Provider Student in an Organized Health Care Education/Training Program | DX: Z13.89 Encounter for screening for other disorder (principal) | CPT/HCPCS: 99212 ==

== ENCOUNTER 2024-07-20 09:02 | Outpatient (REF) | payer MEDICARE, OTHER, SELFPAY ==
--- OUTSIDE RECORDS SUMMARY | 2024-07-20 09:43 | XMS_ITS | Clinical Summary ---
Author Organization [email or web address] Address [address] [facility] [email or web address] [address] Care Team Providers Care Implementation Architect Name Role Phone Pcp, No Primary Care Provider [phone] Allergies Active Allergy Reactions Criticality Noted Date [...] Adults 18 yrs or above (or HM Modifier)([facility]) 1969 Hepatitis C Virus Infection in Adolescents and Adults: Screening (or Modifier) ([facility]) 1969 SDOH Screening Reminder: Teresa orozco for all adults ([facility]) 1969 Tobacco Smoking Cessation: i n Adults excluding Women: Behavioral and Pharmacotherapy Interventions ([facility]) 1969 DTaP/Tdap/Td Vaccines ([facility]) (1 - Tdap) 1970 Colorectal Cancer Screening 45 -75 Yrs (or HM Modifier) 1996 Colorectal Cancer: FLEXIBLE SIGMOIDOSCOPY Screening every 5 yrs 1996 Colorectal Cancer: Fecal Imm unochemical Test (FIT) Annually [facility] 1996 Colorectal Cancer: High-sens itivity gFOBT Screening Annually [facility] 1996 Colorectal Cancer: Stool Col oguard Screening every 3 yrs 1996 Colorectal Cancer:CT Colonog yves Screening every 5 yrs 1996 Lipid Screening: Every 5 yrs for Women aged 45+ (or HM Modifier) ([facility]) 1997 Breast Cancer: Screening Teresa orozco age 50-74 yrs (or HM Modifier)([facility]) 2001 Pneumococcal Vaccination Scr eening: Patients 50+ yrs of age ([facility]) (1 of 1 - PCV) 2001 Zoster/Shingles Vaccine Seri es Screening: Adults aged 18+ yrs (or HM Modifiers)([facility]) (1 of 2) 2001 Osteoporosis Screening to Pr event Fractures: Women aged 65 years+ ([facility]) 2016 COVID-19 Vaccine Screening: Initial Series and Booster Status ([facility]) ( - 2023- season) 2023 06/16/2020, 05/26/2020 Flu Vaccination: Ages 65+: Y early High Dose Recommended (or Modifier)([facility]) 10/15/2024 RSV Vaccines (1 - 1-dose 75+ series) 2026 [employer] Not on file Insurance MEDICARE Care Teams Implementation Architect Relationship Specialty Start Date End Date Pcp, No PCP - General Family Medicine 11/24/22
[2024-07-20 09:52] LABS: MANUAL DIFF FLAG NO
[2024-07-20 10:45] LABS: Parathyroid Hormone Intact 68.1 pg/mL (8.7-77.1)
[2024-07-20 11:06] LABS: Basophils Absolute Auto 0.1 X10*3/uL (0.0-0.2); Basophils Percent Auto 0.7 % (0-2); Eosinophils Absolute Auto 0.2 X10*3/uL (0.0-0.4); Eosinophils Percent Auto 2.6 % (0-4); Hematocrit 39.3 % (37.0-47.0); Imm Gran Abs Auto 0.02 X10*3/uL (0.00-0.03); Imm Gran Pct Auto 0.3 % (0.0-0.4); Lymphocytes Absolute Auto 3.5 X10*3/uL (1.2-4.9); Lymphocytes Percent Auto 48.6 % (20-40); Mean Corpuscular HGB Conc 33.1 g/dl (31.0-35.0); Mean Corpuscular Hemoglobin 30.7 pg (27.0-33.0); Mean Corpuscular Volume 92.7 fL (80.0-98.0); Mean Platelet Volume 10.2 fL (9.4-12.3); Monocytes Absolute Auto 0.5 X10*3/uL (0.1-1.2); Monocytes Percent Auto 7.4 % (2-11); Neutrophils Percent Auto 40.4 % (45-73); Platelet Count 303 X10*3/uL (160-400); Red Blood Count 4.24 X10*6/uL (4.20-5.50); Red Cell Distribution Width 12.1 % (11.0-16.0); White Blood Count 7.3 X10*3/uL (4.8-10.8)
[2024-07-20 11:35] LABS: Alanine Aminotransferase 22 U/L (0-31); Albumin Level 4.3 g/dL (3.5-5.0); Alkaline Phosphatase 90 U/L (39-117); Anion Gap 11 (12-20); Aspartate Amino Transferase 23 U/L (5-31); Bilirubin Total 0.9 mg/dL (0.0-1.0); Blood Urea Nitrogen 14 mg/dL (9-16); C Reactive Protein 0.13 mg/dL (< or = 0.50); Calcium 9.9 mg/dL (8.4-10.2); Carbon Dioxide 28 mmol/L (22-29); Chloride 107 mmol/L (96-108); Estimated Glomerular Filt Rate > 60; Glucose Random 102 mg/dL (60-115); Potassium 3.9 mmol/L (3.3-5.1); Sodium 142 mmol/L (135-145); Total Protein 7.3 g/dL (6.5-8.0)
[2024-07-20 12:20] LABS: Erythrocyte Sedimentation Rate 12 MM/HR (0-20)
[2024-07-21 21:27] LABS: Prot Elec - Albumin 4.3 g/dL (3.8-4.8); Prot Elec - Alpha1 0.4 g/dL (0.2-0.3); Prot Elec - Alpha2 0.7 g/dL (0.5-0.9); Prot Elec - Beta 1 0.5 g/dL (0.4-0.6); Prot Elec - Beta 2 0.4 g/dL (0.2-0.5); Prot Elec - Gamma 1.1 g/dL (0.8-1.7); Prot Elec - Total Protein 7.3 g/dL (6.1-8.1)
== END 2024-07-20 09:03 | disposition home or self-care (01) ==
LOC: HO.10HDL 09:02
PROVIDERS: Visit Provider Student in an Organized Health Care Education/Training Program
DX: L40.50 Arthropathic psoriasis, unspecified (principal); E83.52 Hypercalcemia
CPT/HCPCS: 36415; 80053; 82306; 83970; 84165; 85025; 85652; 86140; 99212

== ENCOUNTER 2024-11-17 09:36 | Outpatient (REF) | payer MEDICARE, OTHER, SELFPAY ==
--- OUTSIDE RECORDS SUMMARY | 2024-11-17 10:31 | XMS_ITS | Clinical Summary ---
Author Organization [facility] [address] Address [address] [place] [address] Care Team Providers Care Manager Commercial Real Estate Name Role Phone Pcp, No Primary Care Provider [phone] Allergies Active Allergy Reactions Criticality Noted Date [...] 72 11/24/2022 9:19 AM EDT Temperature 36.3 C (97.4 F) 11/24/2022 9:19 AM EDT Respiratory Rate 20 11/24/2022 9:19 AM EDT [...] Adults 18 yrs or above (or HM Modifier)([facility]) 1969 Hepatitis C Virus Infection in Adolescents and Adults: Screening (or Modifier) ([facility]) 1969 SDOH Screening Reminder: Teresa orozco for all adults ([facility]) 1969 Tobacco Smoking Cessation: i n Adults excluding Women: Behavioral and Pharmacotherapy Interventions ([facility]) 1969 DTaP/Tdap/Td Vaccines ([facility]) (1 - Tdap) 1970 Colorectal Cancer Screening 45 -75 Yrs (or HM Modifier ) 1996 Colorectal Cancer: FLEXIBLE SIGMOIDOSCOPY Screening every 5 yrs 1996 Colorectal Cancer: Fecal Imm unochemical Test (FIT) Annually [facility] 1996 Colorectal Cancer: High-sens itivity gFOBT Screening Annually [facility] 1996 Colorectal Cancer: Stool Col oguard Screening every 3 yrs 1996 Colorectal Cancer:CT Colonography Screening every 5 yr s 1996 Breast Cancer: Screening Teresa orozco age 50-74 yrs (or HM Modifier)([facility]) 2001 Pneumococcal Vaccination Scr eening: Patients 50+ yrs of age ([facility]) (1 of 1 - PCV) 2001 Zoster/Shingles Vaccine Seri es Screening: Adults aged 18+ yrs (or HM Modifiers)([facility]) (1 of 2) 2001 Osteoporosis Screening to Pr event Fractures: Women aged 65 years+ ([facility]) 2016 Flu Vaccination: Ages 65+: Y early High Dose Recommended (or Modifier)([facility]) 10/15/2024 RSV Vaccines (1 - 1-dose 75+ series) 2026 [employer] Not on file Insurance MEDICARE Care Teams Manager Commercial Real Estate Relationship Specialty Start Date End Date Pcp, No PCP - General Family Medicine 11/24/22
--- OUTSIDE RECORDS SUMMARY | 2024-11-17 10:31 | XMS_ITS | Clinical Summary ---
Author Organization [facility] [address] [facility] Address [address] [place] [address] Phone Care Team Providers Care Sfdc Consultant Name Role Phone Shady Stevens MD Primary Care Provider [phone] Allergies Active Allergy Reactions Criticality Noted Date Comments Mold 01/14/2023 Prochlorperazine 02/05/2005 Medications JAILENE Wilkinson, Pen 40 mg/0.4 mL pen 40 mg [...] mouth 1 (one) time each day. Active losartan (COZAAR) 50 mg tablet Take [...] wheezing. 6.7 g 2 07/06/19 25 Active simvastatin (ZOCOR) 10 mg tablet TAKE ONE TABLET BY MOUTH AT BEDTIME. 90 tablet 09/24/19 25 Active Active Problems Problem Noted Date Diagnosed Date [...] (12/23/2023): DUE URI'S Psoriasis 04/09/2005 Psoriatic arthropathy ([facility] V24, [facility] V28) 02/05/2005 Overview (12/23/2023): Onset . [...] held due to thrush fall 2018Humira restarted Immunizations Name Administration Dates Next Due H1N1 Inj Preservative Free 01/25/2009 Influenza trivalent, 0.5mL ( Fluzone High-dose) 65yo and older 12/20/2022,11/30/2021,01/15/2021,12/05,12/24/2018,04/04/2018,12/23/2016 Influenza trivalent, with pr eservative (Fluzone; Afluria) 6mo and older 01/18/2016,01/12/2015,01/11/2014,01/25,01/03/2012,12/21/2010,01/19/2010 ,12/23/2007,01/09/2007,02/26/2006,12/15 PPD Test 01/25/2009 [employer] Covid-19 Bivalent, Or iginal + Ba.1 (Non-US Trademark COMIRNATY Bivalent) 03/15/2022 [employer] SARS-CoV-2 COVID-19, mRNA, LNP-S, preservative free 06/16/2020,05/26/2020 Pneumococcal conjugate 13 va lent (Prevnar 13, PCV13) 2mo and older 07/18/2016 Pneumococcal polysaccharide 23 valent (Pneumovax 23) 2yo and older 05/06/2018,01/25/2013,01/04/2002 Tdap Tetanus diptheria acell ular pertussis (Boostrix; Adacel) 7yo and older 07/05/2024,12/01/2012 Zoster recombinant (Shingrix ) 19yo and older 11/12/2019,04/24/2019 Surgical History Surgery Date Site/Laterality Comments APPENDECTOMY PROCEDURE: NH APPENDECTOMY OTHER SURGICAL HISTORY PROCEDURE: NH ARTHRS TEMPOROMANDIBULR JT DX W/WO SYNVAL BX SPX; COMMENT: 1989 OTHER SURGICAL HISTORY PROCEDURE: NH BIOPSY THYROID PERCUTANEOUS CORE NEEDLE; COMMENT: 2004 OTHER SURGICAL HISTORY PROCEDURE: NH RADIAL KERATOTOMY; COMMENT: bilateral MULTIPLE TOOTH EXTRACTIONS PROCEDURE: HISTORICAL DENTAL EXTRACTION FEMUR FRACTURE SURGERY 03/2014 Right PROCEDURE: NH OPEN TX FEMORAL FRACTURE DISTAL MED/LAT CONDYLE; COMMENT: Dr. De Santiago OTHER SURGICAL HISTORY 06/2015 Left PROCEDURE: NH ARTHRS KNEE DRLG OSTEOCHOND DISSECANS INT FIXJ; COMMENT: meniscal repair BREAST BIOPSY 1970sih Left PROCEDURE: BX BREAST; PERC NEEDLE CORE W/IMAG GUID; COMMENT: lt bx BREAST SURGERY 1970ish Left PROCEDURE: NH UNLISTED PROCEDURE BREAST; COMMENT: lt cyst removal 26 yrs old OTHER SURGICAL HISTORY Right PROCEDURE: NH ARTHRP ACETBLR/PROX FEM PROSTC AGRFT/ALGRFT COLONOSCOPY 03/14/2008 PROCEDURE: HISTORICAL COLONOSCOPY; COMMENT: Up to cecum, good preparation, small polyp removed:Hyperplastic, anal skin tag, otherwise normal COLONOSCOPY 02/04/2019 PROCEDURE: HISTORICAL COLONOSCOPY; COMMENT: 3 mm polyps x 2: both hyperplastic. Medical History Medical History Date Comments Pure hypercholesterolemia 01/09/2007 DX:Pur e hypercholesterolemia Psoriatic arthropathy (CMS/H CC V24, [facility] V28) 02/05/2005 DX:Psoriatic arthropathy (HC C); COMMENT: On methotrexate and Enbrel Humeral fracture 10/04/2011 DX:Humeral frac ture Fracture of neck of femur (C GA/HCC V24, [facility] V28) 04/14/2014 DX:Fracture of neck of [...] 90 07/05/2024 8:50 AM EDT Temperature 36.3 C (97.3 F) 07/05/2024 8:50 AM EDT Respiratory Rate 14 07/05/2024 8:50 [...] Care Team (Late st Contact Info) Description 01/05/2025 9:30 AM EDT Office Visit [facility] - [address] [phone] Jamey Headley NP [address] [place] 01/21/2025 4:30 PM EST Appointment Radiology Department - [address] [phone] Health Maintenance Due Date Last Done Comments Social Influencers of Health Screening 02/23/2022 Depression Screening 03/17/2024 10/02/2023 Falls Risk Assessment 10/01/2024 10/02/2023 Medicare Annual Wellness Visit 10/01/2024 10/02/2023 COVID-19 Vaccine (7 - Pfizer risk season) 2024 01/14/2024, 03/28/2023, 11/02/2021, Additional history exists Influenza Vaccine (#1) 2024 , 12/20/2022, 11/30/2021, Additional history exists Hypertension/CHF/CAD Annual BMP Blood Test 10/04/2025 10/04/2024, 05/10/2024, 04/05/2024, Additional history exists Breast Cancer Screening 12/31/2025 01/01/20, 01/01/2024, 12/27/2022, Additional history exists Colorectal Cancer Screening: Colonoscopy 02/04/2029 02/04/2019 Cholesterol Screening (Lipid Panel) 10/04/2029 10/04/2024, 05/10/2024, 02/02/2024, Additional history exists Osteoporosis Screening (Bone Density Screening) 04/05/2034 04/05/2024, 08/22/2021, 02/18/2019 DTaP,Tdap,and Td Vaccines (3 - Td or Tdap) 07/05/2034 07/05/2024, 12/01/2012 Pneumococcal Vaccine: 50+ Years Completed 05/06/2018, 07/18/2016, 01/25/2013, Additional history exists Hepatitis C Screening Completed 12/26/2018 Zoster Vaccines Completed 11/12/2019, 04/24/2019 RSV Immunization Adult Patients Completed 03/28/2023 HIB Vaccines Aged Out No longer eligi ble based on patient's age to complete this topic HPV Vaccines Aged Out No longer eligi ble based on patient's age to complete this topic Hepatitis A Vaccines Aged Out No long er eligible based on patient's age to complete this topic Hepatitis B Vaccines Aged Out No long er eligible based on patient's age to complete [...] Diagnosis Comments CBC WITH AUTO DIFFERENTIAL Routine 10/04/2024 8:01 AM EDT Pure hypercholesterolemia Hepatic steatosis Hypertension, unspecified type Hypothyroidism (acquired) CBC AND DIFFERENTIAL Routine 10/04/2024 8:01 AM EDT Pure hypercholesterolemia Hepatic steatosis Hypertension, unspecified type Hypothyroidism (acquired) COMPREHENSIVE METABOLIC PANEL Routine 10/04/2024 8:01 AM EDT Pure hypercholesterolemia Hepatic steatosis Hypertension, unspecified type Hypothyroidism (acquired) THYROID STIMULATING HORMONE Routine 10/04/2024 8:01 AM EDT Pure hypercholesterolemia Hepatic steatosis Hypertension, unspecified type Hypothyroidism (acquired) LIPID PANEL WITH REFLEX TO DIRECT LDL Routine 10/04/2024 8:01 AM EDT Pure hypercholesterolemia Hepatic steatosis Hypertension, unspecified type Hypothyroidism (acquired) BD BONE DENSITY DXA AXIAL SKELETON Routine [...] Lipid panel with reflex to direct LDL (10/04/2024 8:01 AM EDT) Cholesterol 222(H) 0 - 200 mg/dL LAB CHEMISTRY METHOD 10/04/2024 11:01 AM EDT [facility] Triglycerides 150 0 - 150 mg/dL LAB CHEMISTRY METHOD 10/04/2024 11:01 AM [facility] HDL 93 >=40 mg/dL LAB CHEMISTRY METHOD 10/04/2024 11:01 AM [facility] LDL Calculated 99 0 - 100 mg/dL LAB CHEMISTRY METHOD [facility]/04[facility] VLDL Cholesterol Twan 30 mg/dL LAB CHEMISTRY METHOD 10/04/2024 11:01 AM [facility] Non HDL Chol. (LDL+VLDL) 129 <145 mg/dL LAB CHEMISTRY METHOD 10/04/2024 11:01 AM [facility] Chol/HDL Ratio 2.4 0.0 - 4.4 LAB CHEMISTRY METHOD 10/04/2024 11:01 AM [facility] Blood Venous blood specimen / Unknown Venipuncture / Unknown 10/04/2024 8:01 AM EDT 10/04/2024 8:01 AM EDT us Tyler MUÑOZ LAB BLOOD ORDERABLES Fin al Result [facility] [address] [place] [address], * (ABNORMAL) CBC auto differential (10/04/2024 8:01 AM EDT) WBC 7.7 4.8 - 10.8 K/mcL LAB HEMETOLOGY METHOD 10/04/2024 10:08 AM [facility] RBC 4.10 3.80 - 4.80 M/mcL LAB HEMETOLOGY METHOD 10/04/2024 10:08 AM [facility] Hemoglobin 12.3 11.5 - 16.0 g/dL LAB HEMETOLOGY METHOD 10/04/2024 10:08 AM [facility] Hematocrit 38.5 35.0 - 47.0 % LAB HEMETOLOGY METHOD 10/04/2024 10:08 AM [facility] MCV 95.1 79.0 - 98.0 FL LAB HEMETOLOGY METHOD 10/04/2024 10:08 AM [facility] MCH 30.4 27.0 - 32.0 pcg LAB HEMETOLOGY METHOD 10/04/2024 10:08 AM [facility] MCHC 31.9(L) 32.0 - 37.0 g/dL LAB HEMETOLOGY METHOD 10/04/2024 10:08 AM [facility] RDW 12.5 11.0 - 15.0 % LAB HEMETOLOGY METHOD 10/04/2024 10:08 AM [facility] Platelets 274 130 - 400 K/mcL LAB HEMETOLOGY METHOD 10/04/2024 10:08 AM [facility] MPV 10.6 7.0 - 11.0 FL LAB HEMETOLOGY METHOD 10/04/2024 10:08 AM [facility] NRBC 0.0 <1.0 % LAB HEMETOLOGY METHOD 10/04/2024 10:08 AM [facility] NRBC Absolute 0.00 <0.10 K/mcL LAB HEMETOLOGY METHOD 10/04/2024 10:08 AM [facility] Neutrophils Relative 37.9 % LAB HEMETOLOGY METHOD 10/04/2024 10:08 AM [facility] Lymphocytes Relative 51.6 % LAB HEMETOLOGY METHOD 10/04/2024 10:08 AM [facility] Monocytes Relative 6.0 % LAB HEMETOLOGY METHOD 10/04/2024 10:08 AM [facility] Eosinophils Relative 3.6 % LAB HEMETOLOGY METHOD 10/04/2024 10:08 AM EDT [facility] Basophils Relative 0.8 % LAB HEMETOLOGY METHOD 10/04/2024 10:08 AM EDT [facility] Immature Granulocytes Relative 0.1 % LAB HEMETOLOGY METHOD 10/04/2024 10:08 AM EDT [facility] Neutrophils Absolute 2.93 1.50 - 7.00 K/mcL LAB HEMETOLOGY METHOD 10/04/2024 10:08 AM EDT [facility] Lymphocytes Absolute 3.99 1.00 - 5.00 K/mcL LAB HEMETOLOGY METHOD 10/04/2024 10:08 AM EDT [facility] Monocytes Absolute 0.46 0.20 - 1.00 K/mcL LAB HEMETOLOGY METHOD 10/04/2024 10:08 AM [facility] Eosinophils Absolute 0.28 0.00 - 0.50 K/mcL LAB HEMETOLOGY METHOD 10/04/2024 10:08 AM EDT [facility] Basophils Absolute 0.06 0.00 - 0.20 K/mcL LAB HEMETOLOGY METHOD 10/04/2024 10:08 AM [facility] Immature Granulocytes Absolute 0.01 0.00 - 0.03 K/mcL LAB HEMETOLOGY METHOD 10/04/2024 10:08 AM [facility] Blood Venous blood specimen / Unknown Venipuncture / Unknown 10/04/2024 8:01 AM EDT 10/04/2024 8:01 AM EDT us Tyler MUÑOZ LAB BLOOD ORDERABLES Fin al Result [facility] [address] [place] [address], * Thyroid stimulating hormone (10/04/2024 8:01 AM EDT) TSH 3.51 0.40 - 4.00 mcIU/mL LAB CHEMISTRY METHOD 10/04/2024 11:41 AM [facility] Blood Venous blood specimen / Unknown Venipuncture / Unknown 10/04/2024 8:01 AM EDT 10/04/2024 8:01 AM EDT us Tyler MUÑOZ LAB BLOOD ORDERABLES Fin al Result [facility] [address] [place] [address], [place] [phone] * Comprehensive metabolic panel (10/04/2024 8:01 AM EDT) [facility] Sodium 141 133 - 145 mmol/L LAB CHEMISTRY METHOD 10/04/2024 10:58 AM [facility] Potassium 3.9 3.5 - 5.5 mmol/L LAB CHEMISTRY METHOD 10/04/2024 10:58 AM [facility] Chloride 108 96 - 110 mmol/L LAB CHEMISTRY METHOD 10/04/2024 10:58 AM [facility] CO2 29 21 - 32 mmol/L LAB CHEMISTRY METHOD 10/04/2024 10:58 AM [facility] Anion Gap 4 3 - 11 LAB CHEMISTRY METHOD 10/04/2024 10:58 AM [facility] Glucose 95 70 - 100 mg/dL LAB CHEMISTRY METHOD 10/04/2024 10:58 AM [facility] BUN 12 5 - 25 mg/dL LAB CHEMISTRY METHOD 10/04/2024 10:58 AM [facility] Creatinine 0.66 0.50 - 1.10 mg/dL LAB CHEMISTRY METHOD 10/04/2024 10:58 AM [facility] eGFR 93 >=60 mL/min/1. 73m2 LAB CHEMISTRY METHOD 10/04/2024 10:58 AM [facility] Comment:Calculation based on the Chronic Kidney Disease Epidemiology Collaboration (CKD-EPI) equation refit without adjustment for race. BUN/Creatinine Ratio 18.2 LAB CHEMISTRY METHOD 10/04/2024 10:58 AM [facility] Calcium 9.8 8.5 - 10.5 mg/dL LAB CHEMISTRY METHOD 10/04/2024 10:58 AM [facility] AST (SGOT) 17 10 - 42 unit/L LAB CHEMISTRY METHOD 10/04/2024 10:58 AM [facility] ALT (SGPT) 26 10 - 60 unit/L LAB CHEMISTRY METHOD 10/04/2024 10:58 AM [facility] Alkaline Phosphatase 97 42 - 121 unit/L LAB CHEMISTRY METHOD 10/04/2024 10:58 AM [facility] Total Protein 7.1 6.0 - 8.0 g/dL LAB CHEMISTRY METHOD 10/04/2024 10:58 AM [facility] Albumin 4.0 3.2 - 5.0 g/dL LAB CHEMISTRY METHOD 10/04/2024 10:58 AM [facility] Total Bilirubin 0.9 0.0 - 1.4 mg/dL LAB CHEMISTRY METHOD 10/04/2024 10:58 AM [facility] Blood Venous blood specimen / Unknown Venipuncture / Unknown 10/04/2024 8:01 AM EDT 10/04/2024 8:01 AM EDT us Tyler MUÑOZ LAB BLOOD ORDERABLES Fin al Result [facility] [address] [place] [address], * BD Bone Density DXA Axial Skeleton (04/05/2024 2:13 PM EST) Anatomical Region Laterality Modality Wrist, Hip, L-spine Bone Densito metry 04/05/2024 2:41 PM EST Impressions 04/05/2024 2:44 PM EST Osteopenia by WHO criteria. The [facility] Department of Internal Medicine recommends using National [...] alternative screening schedule based on princess Izaguirre., [facility] April 04, 2011 for patients with osteopenia (based on hip BMD T-score) is as follows: * advanced osteopenia (T scores [...] Signed Date: 04/05/2024 14:44 ET Workstation ID: [id number] Transcribed By: Self Edit Transcribed Date: 04/05/2024 [...] 08/22/2021. 4.2% loss of lumbar spine bone mineral density which is statistically significant at the 95% confidence level. No statistically significant change in left hip bone [...] elements. IMPRESSION: Osteopenia by WHO criteria. The [facility] Department of Internal Medicine [...] alternative screening schedule based on princess Izaguirre., NEJMJanuary 2011 for patients with osteopenia (based on [...] Signed Date: 04/05/2024 14:44 ET Workstation ID: [id number] Transcribed By: Self Edit Transcribed Date: 04/05/2024 [...] category Breast cancer risk not assessed Location: [facility], [address] [place] [address], [address], [phone] Procedure Note Hugo Laurent MD - 01/13/2024 [...] category Breast cancer risk not assessed Location: [facility], [address] [place] [address], [address], [phone] Result [facility] Shady Stevens MD IMG XR PROCEDURES Final Result * Falls Risk Assessment (10/02/2023) Pathologist [facility] Falls Risk Assessment abstracted Historical Provider HEALTH MAINTENANCE Final Result * Depression Screening (10/02/2023) Pathologist [facility] Depression Screening abstracted Result [facility] Historical Provider HEALTH MAINTENANCE Final Result * Colonoscopy (02/04/2019) Pathologist [facility] Colonoscopy abnormal, abstracted Anatomical Region Laterality Modality Other Result [facility] Historical Provider HEALTH MAINTENANCE Final Result * Hepatitis C Screening (12/26/2018) Pathologist [facility] Hepatitis C Screening abstracted Historical Provider HEALTH MAINTENANCE Final Result from Last 3 Months or Most Recently Relevant to Health Maintenance Insurance MEDICARE [facility] Care Teams Sfdc Consultant Relationship Specialty Start Date End Date Shady Stevens MD [address] [place] [address] [place] [address] PCP - General Internal Medicine 01/15/21
--- OUTSIDE RECORDS SUMMARY | 2024-11-17 10:31 | XMS_ITS ---
Author Name [facility] Organization Unknown Care Team Organization Name Specialty Phone Email Start Date End Da te [facility] Tyler Padilla Primary Care 08/23/202211/02 [facility] Mei, PROVIDER Primary Care 01/22/202210/15
[2024-11-17 13:02] LABS: MANUAL DIFF FLAG NO
[2024-11-17 13:09] LABS: Hematocrit 39.6 % (37.0-47.0); Hemoglobin 12.9 g/dl (12.0-16.0); Imm Gran Abs Auto 0.02 X10*3/uL (0.00-0.03); Imm Gran Pct Auto 0.2 % (0.0-0.4); Lymphocytes Absolute Auto 3.5 X10*3/uL (1.2-4.9); Mean Corpuscular HGB Conc 32.6 g/dl (31.0-35.0); Mean Corpuscular Hemoglobin 30.8 pg (27.0-33.0); Mean Corpuscular Volume 94.5 fL (80.0-98.0); NRBC Abs Auto 0.000 X10*3/uL (0.0-0.012); NRBC Pct Auto 0.0 /100WBC (0.0-0.2); Platelet Count 244 X10*3/uL (160-400); Red Blood Count 4.19 X10*6/uL (4.20-5.50); White Blood Count 8.3 X10*3/uL (4.8-10.8)
[2024-11-17 13:26] LABS: Alanine Aminotransferase 21 U/L (0-31); Albumin Level 4.5 g/dL (3.5-5.0); Alkaline Phosphatase 83 U/L (39-117); Anion Gap 11 (12-20); Aspartate Amino Transferase 26 U/L (5-31); Blood Urea Nitrogen 13 mg/dL (9-16); Calcium 9.9 mg/dL (8.4-10.2); Carbon Dioxide 27 mmol/L (22-29); Chloride 107 mmol/L (96-108); Estimated Glomerular Filt Rate > 60; Potassium 4.2 mmol/L (3.3-5.1); Sodium 141 mmol/L (135-145); Total Protein 7.3 g/dL (6.5-8.0)
== END 2024-11-17 09:37 | disposition home or self-care (01) ==
LOC: HO.HMGCLDS 09:36
PROVIDERS: PCP Internal Medicine; Visit Provider Student in an Organized Health Care Education/Training Program
DX: L40.50 Arthropathic psoriasis, unspecified (principal)
CPT/HCPCS: 36415; 80053; 85025; 85652; 86140

== ENCOUNTER 2024-11-18 09:54 | Outpatient (AMB) | payer MEDICARE, OTHER, SELFPAY ==
--- NOTE | 2024-11-18 10:07 | A.OFFVIS_ITS ---
Vital Signs 11/18/24 10:13 Height 5 ft 6 in Weight 139 lb 5.314 oz BMI 22.5 BP 152/84 H Blood Pressure Location Lt brachial Position Sitting Pulse 70 Pulse Source Pulse Oximeter Pulse Oximetry (%) 98 Oxygen Delivery Method Room Air Intake Visit Reasons: PsA Intake Note: Patient presents for PsA follow up. Allergies prochlorperazine (From Compazine) Allergy (Severe, Verified 11/18/24 10:12) muscle spasms HPI Comments Details: Patient is a 74-year-old female with asthma, hypertension, hyperlipidemia, hypothyroidism, generalized osteoarthritis, Osteoporosis (femur fracture 2014, tibial plateau fracture 2021), psoriasis complicated by psoriatic arthritis here today for follow up Interval History: Patient last seen 07/20/24 with me - On Humira 40mg SC every 2 weeks - Doing well with respect to PsO and PsA - Had other complaints which were attributed to the degenerative joint disease Today, - On Humira 40mg SC every 2 weeks - Had an intracept procedure 10/2024 with ospine surgery for her back pain and has had good response - Left knee pain s/p steroid injection, now improved - Neck and shoulder pain, improved after physical therapy - Her PsO and PsA is under control Rheumatologic History: Onset . Rx: methotrexate - partial response, nausea. Enbrel added Mar 2003 with good response Humira in place of Enbrel because of fading response 12/2010 Methotrexate held at time of hip fracture 03/31 - not restarted as it was not needed Winter 2018 - Humira hled due to flu 10/02: Humira held due to thrush Humira held for keft knee surgery 12/2020(fracture) Restarted Humira 2020 Current Rheumatology Medication(s): Humira 40mg SC every 2 weeks [facility] Medical History (Updated 07/20/24 @ 08:34 by Jumana Rosenberg MD) DDD (degenerative disc disease), lumbosacral Osteopenia Osteoarthritis of knees, bilateral History of humerus fracture 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, right skilled nursing current use of immunosuppressive drug Hyperlipidemia Hypertension Hypothyroid Psoriasis Psoriatic arthritis Surgical History H/O right knee surgery History of total right hip arthroplasty Social History Household Members: Spouse Housing: Condominium Are you a primary student career development specialist to a significant other at home: No Do you presently have visiting nurse or other home services: No 75 years or older and lives alone: No Alcohol intake: never Patient Tobacco Use Status: Never used Tobacco service: No Current occupational status: retired Review of Systems Const Details: Review of Systems Constitutional: Denies fever, chills, weight loss ENT: Denies vision changes, eye pain or eye redness, dental caries, dry mouth GI: Denies nausea, vomiting, diarrhea, abdominal pain, change in BM Pulm: Denies SOB, RECIO, hemoptysis, wheezing Cards: Denies chest pain, palpitations Skin: Denies Raynaud's, rash, nail changes, photosensitivity, JOINER APPRENTICE: Denies headaches, weakness, paresthesias, recurrent falls MSK: as per HPI All other systems reviewed and are unremarkable except noted above Physical Exam Exam Exam: Vital signs reviewed Physical Examination CONSTITUITIONAL Patient alert and cooperative. Well appearing and in no apparent painful distress HEENT Conjunctiva and sclera clear. No lymphadenopathy. CHEST/RESPIRATORY SYSTEM Normal respiratory effort and able to speak in complete sentences. Clear to auscultation bilaterally. No crackles, rales, rhonchi, wheezes heard. CARDIAC SYSTEM Regular rate and rhythm. S1 and S2 heard no murmurs. Radial pulses intact bilaterally MSK Hands * Right Hand: Able to make a fist. No swelling or tenderness to palpation of the MCPs, PIPs or DIPs. No deformities noted. * Left Hand: Able to make a fist. No swelling or tenderness to palpation of the MCPs, PIPs or DIPs. No deformities noted. Wrists * Right Wrist: Full ROM to flexion and extension. No swelling or TTP * Left Wrist: Full ROM to flexion and extension. No swelling or TTP Elbows * Right Elbow: Full ROM. No swelling or TTP. No TTP of the medial epicondyle. No TTP of the lateral epicondyle * Left Elbow: Full ROM. No swelling or TTP. No TTP of the medial epicondyle. No TTP of the lateral epicondyle Shoulders * Right shoulder: Full ROM. No swelling noted. No TTP of the AC joint. No TTP of the subacromial bursa. No TTP of the posterior shoulder * Left shoulder: Full ROM. No swelling noted. No TTP of the AC joint. No TTP of the subacromial bursa. No TTP of the posterior shoulder Hips * Right hip: Good ROM. No pain elicited with hip flexion/internal rotation/external rotation * Left hip: Good ROM. No pain elicited with hip flexion/internal rotation/external rotation Hip bursa: No tenderness to palpation bilaterally Knees * Right knee: Full ROM. No swelling noted. No TTP of the knee joint line. No TTP of pes anserine bursa * Left knee: Full ROM. No swelling noted. No TTP of the knee joint line. No TTP of pes anserine bursa. Ankles * Right ankle: Good ankle dorsiflexion and plantar flexion. No swelling. No TTP of the ankle joint * Left ankle: Good ankle dorsiflexion and plantar flexion. No swelling. No TTP of the ankle joint Feet * Right foot: Negative squeeze test * Left foot: Negative squeeze test Tender points? * No tenderness to palpation of the bilateral trapezius, supraspinatus, anterior costochondral junctions, bilateral suboccipital muscle insertions SKIN No rashes Vital Signs: Last Vital Signs Pulse 70 11/18/24 10:13 BP 152/84 H 11/18/24 10:13 Pulse Ox 98 11/18/24 10:13 Oxygen Delivery Method Room Air 11/18/24 10:13 BMI result Body Mass Index 22.5 Results Reviewed Results Reviewed: Laboratory Tests 07/20/24 11/17/24 09:05 09:40 WBC 8.3 RBC 4.19 L Hgb 12.9 Hct 39.6 Plt Count 244 ESR 7 Sodium 141 Potassium 4.2 Chloride 107 Carbon Dioxide 27 BUN 13 Creatinine 0.70 Total Bilirubin 0.9 AST 26 ALT 21 C-Reactive Protein 0.13 25-OH Vitamin D Total 60.0 Infectious serologies 05/14/24 16:10 Hepatitis A IgM Ab Nonreactive Hep Bs Antigen Negative Hep Bs Antibody REACTIVE Hep B Core Total Ab Nonreactive Hepatitis C Ab (EIA) Nonreactive TB Test (T-Spot) Com Negative Assessment & Plan Assessment & Plan (1) Psoriatic arthritis: Comment: Onset . Rx: methotrexate - partial response, nausea. Enbrel added Mar 2003 with good response Humira in place of Enbrel because of fading response 12/2010 Methotrexate held at time of hip fracture 03/31 - not restarted as it was not needed Winter 2018 - Humira hled due to flu 10/02: Humira held due to thrush Humira held for keft knee surgery 12/2020(fracture) Restarted Humira 2020 Code(s): L40.50 - Arthropathic psoriasis, unspecified Category: Medical Plan: #PsO/PsA Patient is a 74-year-old female with psoriasis complicated by psoriatic arthritis here today for follow up. Patient is currently in remission with no evidence of psoriatic plaques or active synovitis on examination Plan - Humira 40mg SC every other week - RTC 6 months - Labs before visit: CBC, CMP, ESR, CRP (2) Osteopenia: Comment: 2019: AP Spine -1.6, Left femur neck, Left femur total -1.7 DEXA 08/2021 T scores: Hip -2.0; LS spine -1.8 11/05 declines bisphosphonate RX Code(s): M85.80 - Other specified disorders of bone density and structure, unspecified site Category: Medical Qualifiers: Osteopenia location: multiple sites Qualified Code(s): M85.89 - Other specified disorders of bone density and structure, multiple sites Plan: #Osteopenia Patient with osteopenia. 2021 bone density shows worsening of her osteopenia however declined bisphosphonate treatment Plan - Check Vit D (3) Generalized osteoarthritis: Code(s): M15.9 - Polyosteoarthritis, unspecified Category: Medical Plan: #Polyarticular OA Currently controlling the pain with Tylenol and Aleve. Discussed that she should use this sparingly given the history of her liver disease (4) Adalimumab (Humira) long-term use: Code(s): Z79.620 - skilled nursing (current) use of immunosuppressive biologic Plan: #Long-term Use of TNF Inhibitors: Humira Discussed with the patient the benefits and risks of TNF inhibitors for the management of the rheumatic condition Benefits include reduce pain, maintenance of remission and reduction of flares as well as ?progression of the disease Risks include injection sites/infusion reactions, serious infections (such as bacterial infections, opportunistic infections), malignancy, delaminating syn dromes, autoimmune phenomena, CHF exacerbations, palmar plantar psoriasis and cytopenias Recommended rotating injection sites, and holding medication during and for up to 1 week after resolution of a febrile illness or open skin wound Plan I spent 30 minutes reviewing the record and labs, taking a history, examining the patient, discussing the treatment plan, ordering diagnostic work up and documenting in the medical record Orders: Orders Complete Blood Count Auto Diff 6 Months Z79.899 - Other keno terminal operator (current) drug therapy Comprehensive Met. Panel 6 Months Z79.899 - Other keno terminal operator (current) drug therapy C Reactive Protein 6 Months Z79.899 - Other keno terminal operator (current) drug therapy Erythrocyte Sedimentation Rate 6 Months Z79.899 - Other skilled nursing (current) drug therapy Hepatitis B,C Profile 6 Months Z79.899 - Other keno terminal operator (current) drug therapy T Spot TB 6 Months Z79.899 - Other skilled nursing (current) drug therapy Coding Level of Care Code Est Pt Level 4 (71437) Complex EM visit Add On G2211 Diagnoses Psoriatic arthritis L40.50 Osteopenia of multiple sites M85.89 Osteopenia location: multiple sites Generalized osteoarthritis M15.9 Adalimumab (Humira) long-term use Z79.620
[2024-11-18 10:13] VITALS: BP 152/84; PULSE 70; O2SAT 98; BMI 22.5
--- OUTSIDE RECORDS SUMMARY | 2024-11-18 10:59 | XMS_ITS | Clinical Summary ---
Author Organization [facility] [employer] Address [address] [place] [address] Care Team Providers Care Funeral Pre Arrangement Specialist Name Role Phone Pcp, No Primary Care Provider [phone] Allergies Active Allergy Reactions Criticality Noted Date [...] Adults 18 yrs or above (or HM Modifier)([facility]) 1969 Hepatitis C Virus Infection in Adolescents and Adults: Screening (or Modifier) ([facility]) 1969 SDOH Screening Reminder: Teresa orozco for all adults ([facility]) 1969 Tobacco Smoking Cessation: i n Adults excluding Women: Behavioral and Pharmacotherapy Interventions ([facility]) 1969 DTaP/Tdap/Td Vaccines ([facility]) (1 - Tdap) 1970 Colorectal Cancer Screening 45 -75 Yrs (or HM Modifier ) 1996 Colorectal Cancer: FLEXIBLE SIGMOIDOSCOPY Screening every 5 yrs 1996 Colorectal Cancer: Fecal Imm unochemical Test (FIT) Annually [facility] 1996 Colorectal Cancer: High-sens itivity gFOBT Screening Annually [facility] 1996 Colorectal Cancer: Stool Col oguard Screening every 3 yrs 1996 Colorectal Cancer:CT Colonography Screening every 5 yr s 1996 Breast Cancer: Screening Teresa orozco age 50-74 yrs (or HM Modifier)([facility]) 2001 Pneumococcal Vaccination Scr eening: Patients 50+ yrs of age ([facility]) (1 of 1 - PCV) 2001 Zoster/Shingles Vaccine Seri es Screening: Adults aged 18+ yrs (or HM Modifiers)([facility]) (1 of 2) 2001 Osteoporosis Screening to Pr event Fractures: Women aged 65 years+ ([facility]) 2016 Flu Vaccination: Ages 65+: Y early High Dose Recommended (or Modifier)([facility]) 10/15/2024 RSV Vaccines (1 - 1-dose 75+ series) 2026 [employer] Devices Not on file Insurance MEDICARE Care Teams Funeral Pre Arrangement Specialist Relationship Specialty Start Date End Date Pcp, No PCP - General Family Medicine 11/24/22
--- OUTSIDE RECORDS SUMMARY | 2024-11-18 11:00 | XMS_ITS | Clinical Summary ---
Author Organization [facility] [address] [facility] Address [address] [place] [address] Phone Care Team Providers Care Magazine Writer Name Role Phone Shady Stevens MD Primary Care Provider [phone] Allergies Active Allergy Reactions Criticality Noted Date [...] (12/23/2023): DUE URI'S Psoriasis 04/09/2005 Psoriatic arthropathy ([facility] V24, [facility] V28) 02/05/2005 Overview (12/23/2023): Onset . Rx: [...] and older 01/18/2016,01/12/2015,01/11/2014,01/25,01/03/2012,12/21/2010,01/19/2010 ,12/23/2007,01/09/2007,02/26/2006,12/15 PPD Test 01/25/2009 [employer] Covid-19 Bivalent, Or iginal + Ba.1 (Non-US Trademark COMIRNATY Bivalent) 03/15/2022 [employer] SARS-CoV-2 COVID-19, mRNA, LNP-S, preservative free 06/16/2020,05/26/2020 Pneumococcal conjugate 13 va lent (Prevnar 13, PCV13) 2mo and older 07/18/2016 Pneumococcal polysaccharide 23 valent (Pneumovax 23) 2yo and older 05/06/2018,01/25/2013,01/04/2002 Tdap Tetanus diptheria acell ular pertussis (Boostrix; Adacel) 7yo and older 07/05/2024,12/01/2012 Zoster recombinant (Shingrix ) 19yo and older 11/12/2019,04/24/2019 Surgical History Surgery Date Site/Laterality Comments APPENDECTOMY PROCEDURE: CA APPENDECTOMY OTHER SURGICAL HISTORY PROCEDURE: CA ARTHRS TEMPOROMANDIBULR JT DX W/WO SYNVAL BX SPX; COMMENT: 1989 OTHER SURGICAL HISTORY PROCEDURE: CA BIOPSY THYROID PERCUTANEOUS CORE NEEDLE; COMMENT: 2004 OTHER SURGICAL HISTORY PROCEDURE: CA RADIAL KERATOTOMY; COMMENT: bilateral MULTIPLE TOOTH EXTRACTIONS PROCEDURE: HISTORICAL DENTAL EXTRACTION FEMUR FRACTURE SURGERY 03/2014 Right PROCEDURE: CA OPEN TX FEMORAL FRACTURE DISTAL MED/LAT CONDYLE; COMMENT: Dr. De Santiago OTHER SURGICAL HISTORY 06/2015 Left PROCEDURE: CA ARTHRS KNEE DRLG OSTEOCHOND DISSECANS INT FIXJ; COMMENT: meniscal repair BREAST BIOPSY 1970sih Left PROCEDURE: BX BREAST; PERC NEEDLE CORE W/IMAG GUID; COMMENT: lt bx BREAST SURGERY 1970ish Left PROCEDURE: CA UNLISTED PROCEDURE BREAST; COMMENT: lt cyst removal 26 yrs old OTHER SURGICAL HISTORY Right PROCEDURE: CA ARTHRP ACETBLR/PROX FEM PROSTC AGRFT/ALGRFT COLONOSCOPY 03/14/2008 PROCEDURE: HISTORICAL COLONOSCOPY; COMMENT: Up to cecum, good preparation, small polyp removed:Hyperplastic, anal skin tag, otherwise normal COLONOSCOPY 02/04/2019 PROCEDURE: HISTORICAL COLONOSCOPY; COMMENT: 3 mm polyps x 2: both hyperplastic. Medical History Medical History Date Comments Pure hypercholesterolemia 01/09/2007 DX:Pur e hypercholesterolemia Psoriatic arthropathy (CMS/H CC V24, [facility] V28) 02/05/2005 DX:Psoriatic arthropathy (HC C); COMMENT: On methotrexate and Enbrel Humeral fracture 10/04/2011 DX:Humeral frac ture Fracture of neck of femur (C MT/HCC V24, [facility] V28) 04/14/2014 DX:Fracture of neck of femur [...] 9:30 AM EDT Office Visit Adult [facility] [place] - [address] [phone] Jamey Headley NP [address], [place] 01/21/2025 4:30 PM EST Appointment Radiology Department - [address] [phone] Health Maintenance Due Date Last Done Comments [...] LAB CHEMISTRY METHOD 10/04/2024 11:01 AM EDT [facility] Triglycerides 150 0 - 150 mg/dL LAB CHEMISTRY METHOD 10/04/2024 11:01 AM [facility] HDL 93 >=40 mg/dL LAB CHEMISTRY METHOD 10/04/2024 11:01 AM [facility] LDL Calculated 99 0 - 100 mg/dL LAB CHEMISTRY METHOD 10/04/2024 11:[facility] VLDL Cholesterol Twan 30 mg/dL LAB CHEMISTRY METHOD 10/04/2024 11:01 AM [facility] Non HDL Chol. (LDL+VLDL) 129 <145 mg/dL LAB CHEMISTRY METHOD 10/04/2024 11:01 AM [facility] Chol/HDL Ratio 2.4 0.0 - 4.4 LAB CHEMISTRY METHOD 10/04/2024 11:01 AM [facility] Blood Venous blood specimen / Unknown Venipuncture / Unknown 10/04/2024 8:01 AM EDT 10/04/2024 8:01 AM EDT us Tyler MUÑOZ LAB BLOOD ORDERABLES Fin al Result [facility] [address] [place] [address], * (ABNORMAL) CBC auto differential (10/04/2024 8:01 AM EDT) WBC 7.7 4.8 - 10.8 K/mcL LAB HEMETOLOGY METHOD 10/04/2024 10:08 AM [facility] RBC 4.10 3.80 - 4.80 M/mcL LAB HEMETOLOGY METHOD 10/04/2024 10:08 AM [facility] Hemoglobin 12.3 11.5 - 16.0 g/dL LAB HEMETOLOGY METHOD 10/04/2024 10:08 AM [facility] Hematocrit 38.5 35.0 - 47.0 % LAB HEMETOLOGY METHOD 10/04/2024 10:08 AM [facility] MCV 95.1 79.0 - 98.0 FL LAB HEMETOLOGY METHOD 10/04/2024 10:08 AM [facility] MCH 30.4 27.0 - 32.0 pcg LAB HEMETOLOGY METHOD 10/04/2024 10:08 AM [facility] MCHC 31.9(L) 32.0 - 37.0 g/dL LAB HEMETOLOGY METHOD 10/04/2024 10:08 AM [facility] RDW 12.5 11.0 - 15.0 % LAB HEMETOLOGY METHOD 10/04/2024 10:08 AM [facility] Platelets 274 130 - 400 K/mcL LAB HEMETOLOGY METHOD 10/04/2024 10:08 AM [facility] MPV 10.6 7.0 - 11.0 FL LAB HEMETOLOGY METHOD 10/04/2024 10:08 AM [facility] NRBC 0.0 <1.0 % LAB HEMETOLOGY METHOD 10/04/2024 10:08 AM [facility] NRBC Absolute 0.00 <0.10 K/mcL LAB HEMETOLOGY METHOD 10/04/2024 10:08 AM [facility] Neutrophils Relative 37.9 % LAB HEMETOLOGY METHOD 10/04/2024 10:08 AM [facility] Lymphocytes Relative 51.6 % LAB HEMETOLOGY METHOD 10/04/2024 10:08 AM [facility] Monocytes Relative 6.0 % LAB HEMETOLOGY METHOD 10/04/2024 10:08 AM [facility] Eosinophils Relative 3.6 % LAB HEMETOLOGY METHOD 10/04/2024 10:08 AM EDT [facility] Basophils Relative 0.8 % LAB HEMETOLOGY METHOD 10/04/2024 10:08 AM EDT [facility] Immature Granulocytes Relative 0.1 % LAB HEMETOLOGY METHOD 10/04/2024 10:08 AM EDT [facility] Neutrophils Absolute 2.93 1.50 - 7.00 K/mcL LAB HEMETOLOGY METHOD 10/04/2024 10:08 AM EDT [facility] Lymphocytes Absolute 3.99 1.00 - 5.00 K/mcL LAB HEMETOLOGY METHOD 10/04/2024 10:08 AM EDT [facility] Monocytes Absolute 0.46 0.20 - 1.00 K/mcL LAB HEMETOLOGY METHOD 10/04/2024 10:08 AM [facility] Eosinophils Absolute 0.28 0.00 - 0.50 K/mcL LAB HEMETOLOGY METHOD 10/04/2024 10:08 AM EDT [facility] Basophils Absolute 0.06 0.00 - 0.20 K/mcL LAB HEMETOLOGY METHOD 10/04/2024 10:08 AM [facility] Immature Granulocytes Absolute 0.01 0.00 - 0.03 K/mcL LAB HEMETOLOGY METHOD 10/04/2024 10:08 AM [facility] Blood Venous blood specimen / Unknown Venipuncture / Unknown 10/04/2024 8:01 AM EDT 10/04/2024 8:01 AM EDT us Tyler MÑUOZ LAB BLOOD ORDERABLES Fin al Result [facility] [address] [place] [address], * Thyroid stimulating hormone (10/04/2024 8:01 AM EDT) TSH 3.51 0.40 - 4.00 mcIU/mL LAB CHEMISTRY METHOD 10/04/2024 11:41 AM [facility] Blood Venous blood specimen / Unknown Venipuncture / Unknown 10/04/2024 8:01 AM EDT 10/04/2024 8:01 AM EDT us Tyler MUÑOZ LAB BLOOD ORDERABLES Fin al Result [facility] [address] [place] [address], [place] [phone] * Comprehensive metabolic panel (10/04/2024 8:01 AM EDT) [facility] Sodium 141 133 - 145 mmol/L LAB CHEMISTRY METHOD 10/04/2024 10:58 AM [facility] Potassium 3.9 3.5 - 5.5 mmol/L LAB CHEMISTRY METHOD 10/04/2024 10:58 AM [facility] Chloride 108 96 - 110 mmol/L LAB CHEMISTRY METHOD 10/04/2024 10:58 AM [facility] CO2 29 21 - 32 mmol/L LAB CHEMISTRY METHOD 10/04/2024 10:58 AM [facility] Anion Gap 4 3 - 11 LAB CHEMISTRY METHOD 10/04/2024 10:58 AM [facility] Glucose 95 70 - 100 mg/dL LAB CHEMISTRY METHOD 10/04/2024 10:58 AM [facility] BUN 12 5 - 25 mg/dL LAB CHEMISTRY METHOD 10/04/2024 10:58 AM [facility] Creatinine 0.66 0.50 - 1.10 mg/dL LAB CHEMISTRY METHOD 10/04/2024 10:58 AM [facility] eGFR 93 >=60 mL/min/1. 73m2 LAB CHEMISTRY METHOD 10/04/2024 10:58 AM [facility] Comment:Calculation based on the Chronic Kidney Disease Epidemiology Collaboration (CKD-EPI) equation refit without adjustment for race. BUN/Creatinine Ratio 18.2 LAB CHEMISTRY METHOD 10/04/2024 10:58 AM [facility] Calcium 9.8 8.5 - 10.5 mg/dL LAB CHEMISTRY METHOD 10/04/2024 10:58 AM [facility] AST (SGOT) 17 10 - 42 unit/L LAB CHEMISTRY METHOD 10/04/2024 10:58 AM [facility] ALT (SGPT) 26 10 - 60 unit/L LAB CHEMISTRY METHOD 10/04/2024 10:58 AM [facility] Alkaline Phosphatase 97 42 - 121 unit/L LAB CHEMISTRY METHOD 10/04/2024 10:58 AM [facility] Total Protein 7.1 6.0 - 8.0 g/dL LAB CHEMISTRY METHOD 10/04/2024 10:58 AM [facility] Albumin 4.0 3.2 - 5.0 g/dL LAB CHEMISTRY METHOD 10/04/2024 10:58 AM [facility] Total Bilirubin 0.9 0.0 - 1.4 mg/dL LAB CHEMISTRY METHOD 10/04/2024 10:58 AM [facility] Blood Venous blood specimen / Unknown Venipuncture / Unknown 10/04/2024 8:01 AM EDT 10/04/2024 8:01 AM EDT us Tyler MUÑOZ LAB BLOOD ORDERABLES Fin al Result [facility] [address] [place] [address], * BD Bone Density DXA Axial Skeleton (04/05/2024 2:13 PM EST) Anatomical Region Laterality Modality Wrist, Hip, L-spine Bone Densito metry 04/05/2024 2:41 PM EST Impressions 04/05/2024 2:44 PM EST Osteopenia by WHO criteria. The [facility] Department of Internal Medicine recommends using National [...] alternative screening schedule based on princess Izaguirre., [facility] April 04, 2011 for patients with osteopenia [...] Signed Date: 04/05/2024 14:44 ET Workstation ID: [id number] Transcribed By: Self Edit Transcribed Date: 04/05/2024 [...] elements. IMPRESSION: Osteopenia by WHO criteria. The [facility] Department of Internal Medicine recommendsusing National Osteoporosis [...] Signed Date: 04/05/2024 14:44 ET Workstation ID: [id number] Transcribed By: Self Edit Transcribed Date: 04/05/2024 [...] category Breast cancer risk not assessed Location: [facility], [address] [place] [address], [id number], [phone] Procedure Note Hugo Laurent MD - 01/13/2024 [...] category Breast cancer risk not assessed Location: [facility], [address] [place] [address], [id number], [phone] Result [facility] Shady Stevens MD IMG XR PROCEDURES Final Result * Falls Risk Assessment (10/02/2023) Pathologist [facility] Falls Risk Assessment abstracted Historical Provider HEALTH MAINTENANCE Final Result * Depression Screening (10/02/2023) [facility]ologist [facility] Depression Screening abstracted Result [facility] Historical Provider HEALTH MAINTENANCE Final Result * Colonoscopy (02/04/2019) Pathologist [facility] Colonoscopy abnormal, abstracted Anatomical Region Laterality Modality Other Result [facility] Historical Provider HEALTH MAINTENANCE Final Result * Hepatitis C Screening (12/26/2018) Pathologist [facility] Hepatitis C Screening abstracted Historical Provider HEALTH MAINTENANCE Final Result from Last 3 Months or Most Recently Relevant to Health Maintenance Insurance MEDICARE [facility] Care Teams Magazine Writer Relationship Specialty Start Date End Date Shady Stevens MD [address] [place] [address] [place] [address] PCP - General Internal Medicine 01/15/21
== END 2024-11-18 10:58 | disposition home or self-care (01) ==
LOC: HO.RHES 09:55
PROVIDERS: PCP Internal Medicine; Visit Provider Student in an Organized Health Care Education/Training Program
DX: L40.50 Arthropathic psoriasis, unspecified (principal); M85.89 Other specified disorders of bone density and structure, multiple sites; M15.9 Polyosteoarthritis, unspecified; Z79.620 Long term (current) use of immunosuppressive biologic
CPT/HCPCS: 99214; G2211

== ENCOUNTER → 2024-11-18 09:54 | Outpatient (BNVA) | payer MEDICARE, OTHER, SELFPAY | PROVIDERS: PCP Internal Medicine; Visit Provider Student in an Organized Health Care Education/Training Program | DX: L40.50 Arthropathic psoriasis, unspecified (principal); M85.89 Other specified disorders of bone density and structure, multiple sites; M15.9 Polyosteoarthritis, unspecified; Z79.620 Long term (current) use of immunosuppressive biologic | CPT/HCPCS: 99212 ==